=== PATIENT | female | born 1940 | race Caucasian/White ===

== ENCOUNTER → 2016-08-21 | Outpatient (CLI) | payer MEDICARE, BC ==
[2016-08-21 09:49] LABS: CH 27.5; CHCM 31.4; HCT 41.6 % (34.0-46.0); HDW 2.33; HGB 13.1 gm/dL (11.4-16.0); MCH 27.6 pg (25.0-35.0); MCHC 31.4 g/dL (31.0-37.0); MCV 87.8 fL (80.0-100.0); Mean Platelet Volume 6.4; RBC 4.74 m/uL (3.80-5.40); RDW 13.1 % (11.5-15.5); WBC 4.9 k/uL (3.8-10.6)
[2016-08-21 10:06] LABS: ALT 40 U/L (9-52); AST 27 U/L (14-36); Alkaline Phosphatase 95 U/L (38-126); Anion Gap 11 mmol/L; Blood Urea Nitrogen 14 mg/dL (7-17); Calcium 9.7 mg/dL (8.4-10.2); Carbon Dioxide 32 mmol/L (22-30); Chloride 100 mmol/L (98-107); Cholesterol 234 mg/dL (<200); Glucose 91 mg/dL (74-99); HDL Cholesterol 82 mg/dL (40-60); Non-African American GFR(MDRD) >60 (>60 ml/min/1.73 sqM); Potassium 4.5 mmol/L (3.5-5.1); Sodium 143 mmol/L (137-145); Total Bilirubin 0.6 mg/dL (0.2-1.3); Total Protein 7.1 g/dL (6.3-8.2); Triglycerides 100 mg/dL (<150)
== END | disposition home or self-care (01) ==
LOC: LABWHC1 09:19
PROVIDERS: ATTEND Internal Medicine
DX: I10 Essential (primary) hypertension (principal); E78.5 Hyperlipidemia, unspecified
CPT/HCPCS: 36415; 80053; 80061; 84443; 85027

== ENCOUNTER → 2016-11-20 | Outpatient (CLI) | payer MEDICARE, BC ==
[2016-11-20 09:18] LABS: CH 27.8; CHCM 32.7; HCT 40.5 % (34.0-46.0); HDW 2.46; HGB 13.3 gm/dL (11.4-16.0); MCH 27.9 pg (25.0-35.0); MCHC 32.8 g/dL (31.0-37.0); MCV 85.2 fL (80.0-100.0); Mean Platelet Volume 6.3; RBC 4.75 m/uL (3.80-5.40); RDW 13.1 % (11.5-15.5); WBC 4.6 k/uL (3.8-10.6)
[2016-11-20 10:56] LABS: ALT 25 U/L (9-52); AST 27 U/L (14-36); Alkaline Phosphatase 82 U/L (38-126); Anion Gap 11 mmol/L; Blood Urea Nitrogen 14 mg/dL (7-17); Calcium 9.7 mg/dL (8.4-10.2); Carbon Dioxide 31 mmol/L (22-30); Chloride 97 mmol/L (98-107); Cholesterol 239 mg/dL (<200); Glucose 87 mg/dL (74-99); HDL Cholesterol 78 mg/dL (40-60); Non-African American GFR(MDRD) >60 (>60 ml/min/1.73 sqM); Potassium 4.3 mmol/L (3.5-5.1); Sodium 139 mmol/L (137-145); Total Bilirubin 0.8 mg/dL (0.2-1.3); Total Protein 7.3 g/dL (6.3-8.2); Triglycerides 137 mg/dL (<150)
== END ==
LOC: LABWHC1 08:50
PROVIDERS: ATTEND Internal Medicine
DX: I10 Essential (primary) hypertension (principal); E78.5 Hyperlipidemia, unspecified; M19.90 Unspecified osteoarthritis, unspecified site
CPT/HCPCS: 36415; 80053; 80061; 84443; 85027

== ENCOUNTER → 2016-12-18 | Outpatient (CLI) | payer MEDICARE, BC ==
[2016-12-18 10:26] LABS: Basophils % (A) 0 %; CH 27.9; CHCM 32.4; Eosinophils % (A) 0 %; HCT 35.6 % (34.0-46.0); HDW 2.48; HGB 11.9 gm/dL (11.4-16.0); Luc # (Auto) 0.15; Luc % (Auto) 3; Lymphocytes # (A) 0.8 k/uL (1.0-4.8); Lymphocytes % (A) 17 %; MCH 28.8 pg (25.0-35.0); MCHC 33.3 g/dL (31.0-37.0); MCV 86.4 fL (80.0-100.0); Mean Platelet Volume 6.2; Monocytes # (A) 0.5 k/uL (0-1.0); Monocytes % (A) 10 %; Neutrophils # (A) 3.5 k/uL (1.3-7.7); Neutrophils % (A) 70 %; RBC 4.12 m/uL (3.80-5.40); RDW 13.1 % (11.5-15.5); WBC (Perox) 4.86
[2016-12-18 13:38] LABS: Erythrocyte Sedimentation Rate 23 mm/hr (0-20)
== END | disposition home or self-care (01) ==
LOC: LABWHC1 10:06
PROVIDERS: ATTEND Orthopaedic Surgery
DX: M25.50 Pain in unspecified joint (principal)
CPT/HCPCS: 36415; 85025; 85652; 86140

== ENCOUNTER → 2017-01-03 | Outpatient (CLI) | payer MEDICARE, BC ==
--- NOTE | 2017-01-03 11:46 | NM ---
EXAMINATION TYPE: NM bone 3 phase DATE OF EXAM: 01/03/2017 11:34 AM COMPARISON: NONE HISTORY: Left hip pain Triple phase bone scintigraphy was performed following the injection of26.2 mCi Tc 99m MDP. Immediat e images and 3.5 hours post injection images acquired. FINDINGS: There is symmetric flow to the femur bilaterally. No significant soft tissue uptake noted. Delayed imaging demonstrates photopenic defect involving the hip prostheses. There is no intense abno rmal uptake surrounding the prostheses. There is mild uptake along the shaft. This could be postsurgi chelo. IMPRESSION: Symmetric flow without significant soft tissue uptake. Delayed imaging does demonstrate very mild upt chi along the shaft of the prostheses which could be postsurgical rather than related to loosening. C orrelate clinically. If warranted a tagged WBC study could be obtained..
== END | disposition home or self-care (01) ==
LOC: RADNMMAIN 07:16
PROVIDERS: ATTEND Orthopaedic Surgery
DX: R94.8 Abnormal results of function studies of other organs and systems (principal); M25.552 Pain in left hip; M79.662 Pain in left lower leg; Z96.642 Presence of left artificial hip joint
CPT/HCPCS: 78315; A9503

== ENCOUNTER → 2017-01-23 | Outpatient (CLI) | payer MEDICARE, BC ==
--- NOTE | 2017-01-23 09:18 | CT ---
EXAMINATION TYPE: CT pelvis wo con DATE OF EXAM: 01/23/2017 COMPARISON: NONE HISTORY: Painful LTHA CT DLP: 536.50 mGycm Automated exposure control for dose reduction was used. FINDINGS: There is a left-sided prosthesis in the left hip. This is causing moderate streak artifact. The bladder is unremarkable. The uterus and ovaries are not visualized. Visualized large and small bowel are normal. The appendix is not visualized. There is no free air or free fluid identified. The patient left hip prosthesis is unremarkable. One of the posterior screws of the acetabular compon ent extends into the soft tissues. I see no definite evidence of loosening. IMPRESSION: POSTERIOR SCREW IN THE ACETABULAR COMPONENT OF THE PATIENT'S LEFT HIP ARTHROPLASTY PROTRUDES INTO THE SOFT TISSUES AND GLUTEUS MINIMUS MUSCLE.
== END | disposition home or self-care (01) ==
LOC: RADCTMAIN 08:31
PROVIDERS: ATTEND Orthopaedic Surgery
DX: T84.091A Other mechanical complication of internal left hip prosthesis, initial encounter (principal)
CPT/HCPCS: 72192

== ENCOUNTER → 2017-02-20 | Outpatient (CLI) | payer MEDICARE, BC ==
[2017-02-20 10:32] LABS: CH 27.9; CHCM 32.7; HCT 38.8 % (34.0-46.0); HDW 2.32; HGB 13.4 gm/dL (11.4-16.0); MCH 29.5 pg (25.0-35.0); MCHC 34.5 g/dL (31.0-37.0); MCV 85.5 fL (80.0-100.0); Mean Platelet Volume 6.4; RBC 4.54 m/uL (3.80-5.40); RDW 13.5 % (11.5-15.5); WBC 5.1 k/uL (3.8-10.6)
[2017-02-20 11:01] LABS: ALT 26 U/L (9-52); AST 30 U/L (14-36); Alkaline Phosphatase 92 U/L (38-126); Anion Gap 9 mmol/L; Blood Urea Nitrogen 15 mg/dL (7-17); Calcium 9.5 mg/dL (8.4-10.2); Carbon Dioxide 30 mmol/L (22-30); Chloride 98 mmol/L (98-107); Cholesterol 217 mg/dL (<200); Glucose 86 mg/dL (74-99); HDL Cholesterol 77 mg/dL (40-60); Non-African American GFR(MDRD) >60 (>60 ml/min/1.73 sqM); Potassium 4.5 mmol/L (3.5-5.1); Sodium 137 mmol/L (137-145); Total Bilirubin 0.7 mg/dL (0.2-1.3); Total Protein 7.1 g/dL (6.3-8.2); Triglycerides 93 mg/dL (<150)
== END | disposition home or self-care (01) ==
LOC: LABWHC1 09:51
PROVIDERS: ATTEND Internal Medicine
DX: E55.9 Vitamin D deficiency, unspecified (principal); I10 Essential (primary) hypertension
CPT/HCPCS: 36415; 80053; 80061; 82306; 84443; 85027

== ENCOUNTER → 2017-03-21 | Outpatient (CLI) | payer MEDICARE, BC ==
--- NOTE | 2017-03-21 16:51 | MR ---
EXAMINATION TYPE: MR lumbar spine wo con DATE OF EXAM: 03/21/2017 COMPARISON: Prior lumbar MRI 06/28/2015 HISTORY: Low Back Pain with Difficulty Walking x5 years, getting worse TECHNIQUE: Multiplanar, multisequence images of the lumbar spine were acquired. L1-L2: Facet arthropathy with hypertrophy ligamentum flavum causes some encroachment on the lateral r ecesses. No significant central stenosis or foraminal encroachment. L2-L3: L2-3: Facet arthropathy with hypertrophy of the ligamentum flavum encroaches on the lateral re cesses. The listhesis contributes to cause some anterior mass effect on the thecal sac, only mild sancho tral stenosis. L3-L4: Facet arthropathy contributes with scoliosis to cause posterior lateral mass effect on the the chelo sac greater from the left. Scoliosis also contributes to cause foraminal encroachment greater on the left than on the right with the listhesis. No significant disc herniation. L4-L5: Circumferential posterior disc bulge causes mild anterior mass effect on the thecal sac. There is facet arthropathy with hypertrophy of the ligamentum flavum encroaching on the lateral recesses. No significant spinal stenosis or foraminal encroachment. L5-S1: Broad-based posterior disc bulge causes mild anterior mass effect on the thecal sac. There is some facet arthropathy change, no significant central stenosis. Circumferential extension of endplate disc complex results in foraminal encroachment greater on the right than on the left. Lumbar segments are intact. No paraspinal masses are identified. Conus medullaris is low lying at L 3-4. There is a marked dextroscoliosis. Multilevel spondylosis is present. Retrolisthesis grade 1 L2- 3, anterolisthesis grade 1 L3-4 noted. Loss of disc height and signal is present at the intervertebra l levels especially at L2-3, L3-4, L1-2. Endplate discogenic marrow signal changes are present, there is multilevel spondylosis. On axial image 18 of the T2 weighted data set there is a similar appearance to prior exam where some increased signal apparently coursing anterior to posterior through the region of the conus compatible with split cord. IMPRESSION: Essentially stable exam. Scoliosis, degenerative disc disease, multilevel facet arthropathy.
== END | disposition home or self-care (01) ==
LOC: RADMRIMAIN 15:13
PROVIDERS: ATTEND Internal Medicine
DX: M51.36 Other intervertebral disc degeneration, lumbar region (principal); M46.86 Other specified inflammatory spondylopathies, lumbar region; M41.9 Scoliosis, unspecified
CPT/HCPCS: 72148

== ENCOUNTER → 2017-06-04 | Outpatient (CLI) | payer MEDICARE, BC ==
[2017-06-04 10:53] LABS: CH 28.3; CHCM 31.2; HCT 41.7 % (34.0-46.0); HDW 2.23; MCH 28.2 pg (25.0-35.0); Mean Platelet Volume 6.2; RBC 4.59 m/uL (3.80-5.40); RDW 13.4 % (11.5-15.5); WBC 5.1 k/uL (3.8-10.6)
[2017-06-04 11:03] LABS: ALT 55 U/L (9-52); AST 34 U/L (14-36); Alkaline Phosphatase 88 U/L (38-126); Anion Gap 7 mmol/L; Blood Urea Nitrogen 16 mg/dL (7-17); Calcium 9.6 mg/dL (8.4-10.2); Carbon Dioxide 30 mmol/L (22-30); Chloride 101 mmol/L (98-107); Cholesterol 231 mg/dL (<200); Glucose 89 mg/dL (74-99); HDL Cholesterol 79 mg/dL (40-60); Non-African American GFR(MDRD) >60 (>60 ml/min/1.73 sqM); Potassium 4.5 mmol/L (3.5-5.1); Sodium 138 mmol/L (137-145); Total Bilirubin 0.6 mg/dL (0.2-1.3); Total Protein 6.9 g/dL (6.3-8.2)
== END | disposition home or self-care (01) ==
LOC: LABWHC1 10:08
PROVIDERS: ATTEND Internal Medicine
DX: I10 Essential (primary) hypertension (principal); E78.5 Hyperlipidemia, unspecified; R53.83 Other fatigue; K21.0 Gastro-esophageal reflux disease with esophagitis
CPT/HCPCS: 36415; 80053; 80061; 84443; 85027

== ENCOUNTER → 2017-06-05 | Outpatient (CLI) | payer MEDICARE, BC ==
[2017-06-03 14:34] VITALS: BMI 29.2
[2017-06-05 11:59] VITALS: BP 193/91; PULSE 76; RESP 16
--- NOTE | 2017-06-05 12:46 | P.CONS ---
History of Present Illness - Reason for Consult Consult date: 06/05/17 - History of Present Illness This is 76 years old female, with more than 5 years history of severe low back pain, pain intensity increased over the last 2 years, it is constant pain localized in the low back area used to be mainly on the left side,but currently bilateral, pain increased with any change position or standing in the same position for long time, she has no fever or night sweats. No change in bowel movement or urination, she tried physical therapy without any benefit, and she tried also on medication management without any benefit, intensity of the pain interfere with her quality of life and she described the pain as 6/10 increased to 8/10, she is currently on naproxen for 50 twice a day and [place] 7.5 /325 one to 2 tab when necessary (is getting prescription refills from her primary care, also patient complaining of severe neck pain which is localized in the neck are not radiated to the upper extremity, no numbness or tingling sensation in the upper extremity, and no weakness in the upper extremities Past Medical History Past Medical History: GERD/Reflux, Hyperlipidemia, Hypertension, Osteoarthritis (OA), Vascular Disorder Additional Past Medical History / Comment(s): RECENT UTI TREATED History of Any Multi-Drug Resistant Organisms: None Reported Past Surgical History: Adenoidectomy, Appendectomy, Breast Surgery, Cholecystectomy, Hysterectomy, Joint Replacement, Tonsillectomy Additional Past Surgical History / Comment(s): ANUPAM CARPAL TUNNEL, BREAST AUGMENTATION AND THEN REMOVAL of implants, ANUPAM LARGE TOE surgery, left hip replacement, anupam cataracts, vitrectomy left eye. Eyelid surgery-bilateral 2015. Past Anesthesia/Blood Transfusion Reactions: Postoperative Nausea & Vomiting ( PONV) Additional Past Anesthesia/Blood Transfusion Reaction / Comm: SEVERE PONV, TONGUE SWELLED POST OP x1 Past Psychological History: No Psychological Hx Reported Smoking Status: Never smoker Past Alcohol Use History: None Reported Past Drug Use History: None Reported - Past Family History Mother Family Medical History: No Reported History Father Additional Family Medical History / Comment(s): CIRRHOIS OF THE LIVER Medications and Allergies Home Medications Medication Instructions Recorded Confirmed Type Hydrochlorothiazide 25 mg PO DAILY 08/27/14 06/05/17 History Loratadine [Alavert] 10 mg PO DAILY 08/27/14 06/05/17 History Omeprazole [PriLOSEC] 20 mg PO AC-SUPPER 08/27/14 06/05/17 History HYDROcodone/APAP 7.5-325MG [[place] 1 - 2 each PO Q6HR PRN #90 tab 09/09/14 Rx 7.5-325] Naproxen Sodium [Aleve] 440 mg PO Q12HR 06/03/17 06/05/17 History Vit C/E/Zn/Coppr/Lutein/Zeaxan 1 each PO BID 06/03/17 06/05/17 History [Preservision Areds 2 Softgel] Allergies Allergy/AdvReac Type Severity Reaction Status Date / Time adhesive Allergy Rash/Hives Verified 06/05/17 11:33 METAL Allergy Rash/Hives Uncoded 06/05/17 11:33 Physical Exam Vitals: Vital Signs Pulse Resp BP Pulse Ox 06/05/17 11:35 76 16 193/91 99 Social history : smoker , NO ETOH , NO Illegal drugs use Review of Systems : 1- Constitutional : no chills , no fever , no night sweats , 2- Ears : no ear discharge , no change in hearing 3-Nose, Mouth ,Throat ; no bleeding gums, no sore throat , no epistaxis , 4-Cardiovascular : Denies chest pain, , no orthopnea , no palpitation 5-Respiratory : Denies cough , no dyspnea , no hemoptysis 6-Gastrointestinal :, no change in bowel habits , no coffee- ground emesis . 7-Genitourinary : No hematuria , no discharge , no incontinence, 8-Musculoskeletal : No gait dysfunction , report low back pain , 9- Neurological : no ataxia , no tremor , no sezure , 10-Psychatric , no suicidal ideation no hallucination 11- Endocrine : no cold intolerence , no polyuria , no polydypsia , 12-Hematologic : no easy bleeding , no easy brusing , 13-Allergic / immunology : no angioedema , no wheezing ,no allergic rhinitis 14-Integumentary : no brttle nails , no change hair / nails , no foot/leg ulcers . Physical Examinations : 1-Constitutional : Cooperative , not in acute distress . 2-HEENT : nech ; supple , no Lymphadenopathy , no Thyromegaly , :eyes , no icterus, no photophobia . ENT : , normal oropharynx , no Thrush 3- Respiratory : Chest clear to auscultations Bilaterally , no wheezing . 4- Cardiovascular : regular rate and rhythem , S1 , S2 , no S3 , no S4. 5- Gastrointestinal: abdomen soft no tenderness , no organomegally . 6- Genitourinary : Defferred . 7-Integumentary : No cellulitis , no ulcers , normal skin turgor , no cyanotic . 8- neurologic : Cranial nerve II to XII intact , no focal neurological deffecit 9-psychatric : alert , oriented X 3 , appropriate affect , intact judgment and insight . 10-Lymphatic : no Lymphadenopathy. 11- musculoskeltal: normal gait Cervical Spine motor stregnth in the deltoid and biceps, normal right side , normal Left side motor stregnth biceps and the wrist extensors normal right side ,normal left side . motor stregnth in the triceps muscle . normal Right side , normal Left side deep tendon reflexes normal at the biceps , normal at Brachioradialis , normal at triceps. positive cervical facet loading test . Lumber spine moter stegnth lower extremities ,thigh and legs 5/5 Right side , 5/5 Left side deep tendon reflexes : normal Knee Jerk , normal ankle Jerk positive lumber facet Loading Test Range of motion of the lumbar spine Flexion 30 degrees, extension 10 degrees strait leg raising test , positive at 60 degree on the left side , negative on the right side Fabere test negative bilaterally moderate tenderness over the Sacroiliac joint on the L sides Results Comments: MRI of the lumbar spine= done at [facility] = multilevel lumbar degenerative/bulging disc disease and multilevel lumbar facet arthropathy Assessment and Plan Plan: Assessment and plan= chronic low back pain secondary to lumbar degenerative disc disease , lumbar spondylosis with lumbar facet arthropathy , Chronic neck pain secondary to cervical spondylosis with cervical facet arthropathy Diagnoses, prognosis, treatment options, including but not limited to physical therapy, medication management, interventional therapies, and surgery, were discussed with the patient All the questions answered, patient will be scheduled to have diagnostic medial branch block lumbar area L3-4/L4-L5/L5-S1 redo the block twice and if she had more than 50% improvement then we will proceed with a radiofrequency ablation of the medial branch lumbar area, In the future after we finished the treatment of the low back pain we will order MRI of the cervical spine to confirm the diagnosis Patient instructed to continue her current pain medication naproxen for 50 twice a day when necessary [place] 7.5/325 every 6 hours and she is getting her prescription refilled from her primary care , Time with Patient: Greater than 30
== END ==
LOC: PNWHC3 11:18
PROVIDERS: ATTEND Specialist
DX: M51.36 Other intervertebral disc degeneration, lumbar region (principal); M47.816 Spondylosis without myelopathy or radiculopathy, lumbar region; M46.86 Other specified inflammatory spondylopathies, lumbar region; M47.812 Spondylosis without myelopathy or radiculopathy, cervical region; M46.82 Other specified inflammatory spondylopathies, cervical region; K21.9 Gastro-esophageal reflux disease without esophagitis; E78.5 Hyperlipidemia, unspecified; I10 Essential (primary) hypertension; Z79.891 Long term (current) use of opiate analgesic; Z79.899 Other long term (current) drug therapy; Z91.09 Other allergy status, other than to drugs and biological substances
CPT/HCPCS: 99211

== ENCOUNTER 2017-07-16 07:13 | Day surgery (SDC) | payer MEDICARE, BC ==
[2017-07-15 08:39] VITALS: BMI 29.9
[2017-07-16 07:59] VITALS: RESP 16; TEMP 97.1
[2017-07-16] MEDS ORDERED: LIDOCAINE 1% 20 ML VIAL (10MG/ML) FOR IV START INTRADERMA ONE (08:05)
[2017-07-16] MEDS ORDERED: LACTATED RINGERS 1,000 ML IV SCH (08:15)
[2017-07-16] MEDS ORDERED: ONDANSETRON 4 MG/2 ML VIAL IVP STA (08:26)
[2017-07-16] MEDS ORDERED: IV FLUID CONTINUATION 1,000 ML IV ONE (08:46)
--- NOTE | 2017-07-16 08:52 | P.PCN ---
Date of Procedure: 07/16/17 Surgeon: Jourdan Olmos Pathology: none sent Condition: stable Disposition: PACU Description of Procedure: PREOPERATIVE DIAGNOSIS: L3-L4, L4-L5, and L5-S1 spondylosis without myelopathy and facet arthropathy. POSTOPERATIVE DIAGNOSIS: L3-L4, L4-L5, and L5-S1 spondylosis without myelopathy and facet arthropathy. PROCEDURE DESCRIPTION: Patient presents for L3-L4, L4-L5 and L5-S1 diagnostic medial branch blocks under fluoroscopic guidance. The procedure is performed using fluoroscopic guidance during needle placement to assure proper position and maximize safety. ANESTHESIA: Local with 1% lidocaine; conscious sedation EBL: Minimal PROCEDURE INDICATION: Patient with lumbar facet arthropathy signs and symptoms, here for diagnostic medial branch block #2 today after failing conservative treatment. One day's relief > 80% from first MBB. Pt does not take any blood thinning medications. PROCEDURE DESCRIPTION: The patient was seen and identified in the preoperative area. Risks, benefits, complications, and alternatives were discussed with the patient (including but not limited to incomplete pain relief, bleeding, infection, nerve damage, and allergies to medications), the patient agreed to proceed with the procedure and signed the consent after all questions were answered. Patient was taken to the OR and time out was completed to verify proper patient, position, laterality of pain, and allergies. Pt was placed in the prone position and a pillow was placed under the abdomen to reduce lumbar lordosis. The lumbosacral area was prepped and draped in the usual sterile fashion. Using oblique fluoroscopy, the eye of the "Doni dog" of right L4 vertebral body, which corresponds to the path of the medial branch originating from the level above, which is L3 in this case, was identified. Subsequently, a 22-gauge 3.5-inch spinal needle was inserted under fluoroscopic guidance toward the eye of the "Doni dog" of the right L4 vertebral body, corresponding to the junction of the superior articular process and the transverse process of the pedicle of the same level. After needle tip confirmation on lateral view and after negative aspiration for CSF and blood and without paresthesias, 1 mL of a 6 ml solution of 0.5% preservative-free bupivacaine and 40 mg Kenalog was injected. Subsequently the needle was withdrawn intact and the same procedure was repeated for the right L4, right L5, left L3, left L4, and left L5 medial branches which together with right L3 medial branch correspond to the sensory innervation of the bilateral L3-L4, L4-L5, and L5-S1 facet joints. Needle was withdrawn intact after each injection. At the end of the procedure, the skin was cleansed and bandages were applied. COMPLICATIONS: None. DISPOSITION/PLAN: The patient taken to the recovery area after the procedure in a stable condition for observation. Patient was reexamined prior to discharge and there were no issues. Patient was discharged home, accompanied by an adult, after meeting discharged criteria. Discharge instructions were give to the patient by the staff. Patient was specifically instructed not to drive today and to rest for the rest of the day. Patient to follow up in clinic in 2-4 weeks for further evaluation.
[2017-07-16 09:05] VITALS: BP 149/69; PULSE 67
--- NOTE | 2017-07-16 09:07 | FL ---
EXAMINATION TYPE: FL guided pain mgmt statistic DATE OF EXAM: 07/16/2017 HISTORY: Flouroscopy time 11 seconds of fluoroscopy provided. IMPRESSION: 1. Fluoroscopy time.
== END 2017-07-16 09:18 | disposition home or self-care (01) ==
LOC: ORPAIN 07:13
PROVIDERS: ATTEND Specialist
DX: M47.816 Spondylosis without myelopathy or radiculopathy, lumbar region (principal); M47.817 Spondylosis without myelopathy or radiculopathy, lumbosacral region; I10 Essential (primary) hypertension; K21.9 Gastro-esophageal reflux disease without esophagitis; Z88.8 Allergy status to other drugs, medicaments and biological substances; Z79.1 Long term (current) use of non-steroidal anti-inflammatories (NSAID); Z79.891 Long term (current) use of opiate analgesic; Z79.899 Other long term (current) drug therapy
CPT/HCPCS: 64493; 64494; 64495; J2250; J3301; 99152

== ENCOUNTER 2017-09-03 08:17 | Day surgery (SDC) | payer MEDICARE, BC ==
[2017-08-27 15:19] VITALS: BMI 30.4
[2017-09-03] MEDS ORDERED: LIDOCAINE 1% 20 ML VIAL (10MG/ML) FOR IV START INTRADERMA ONE (08:23)
[2017-09-03 08:34] VITALS: TEMP 94.8
[2017-09-03] MEDS ORDERED: LACTATED RINGERS 1,000 ML IV ONE (08:38)
[2017-09-03] MEDS ORDERED: LACTATED RINGERS 1,000 ML IV SCH (09:45)
[2017-09-03] MEDS ORDERED: fentaNYL (PF) 50 MCG/ML 2 ML AMP ONE (09:45)
[2017-09-03] MEDS ORDERED: MIDAZOLAM 2 MG/2 ML VIAL ONE (09:45)
--- NOTE | 2017-09-03 10:00 | P.PCN ---
Date of Procedure: 09/03/17 Surgeon: Jourdan Olmos Pathology: none sent Condition: stable Disposition: PACU Description of Procedure: PREOPERATIVE DIAGNOSIS: Lumbar spondylosis without myelopathy and facet arthropathy POSTOPERATIVE DIAGNOSIS: Lumbar spondylosis without myelopathy and facet arthropathy PROCEDURES: Left Radiofrequency thermocoagulation, L3-L4, L4-L5, and L5-S1 medial branch, with fluoroscopic guidance. ANESTHESIA: 1% lidocaine plain; Conscious sedation with versed/fentanyl EBL: Minimal PROCEDURE INDICATION: The patient with low back pain secondary to lumbar arthropathy who had more than 50% relief of pain with previous diagnostic lumbar medial branch block with bupivacaine. Patient presents for left lumbar RFA today; no use of blood thinners. PROCEDURE DESCRIPTION / TECHNIQUE: The patient was seen and identified in the preoperative area. Risks, benefits, complications, and alternatives were discussed with the patient (including but not limited to incomplete pain relief , bleeding, infection, nerve damage, and allergies to medications), the patient agreed to proceed with the procedure and signed the consent after all questions were answered. Patient was taken to the OR and time out was completed to verify proper patient , position, laterality of pain, and allergies. Pt was placed in the prone position. IV was started. Vital signs remained stable throughout the procedure. A pillow was placed under the patients chest to decrease lordosis. The lumbosacral area was prepped and draped in the usual sterile fashion. Vital signs were closely monitored during the procedure. Conscious sedation was used during the procedure to decrease patients anxiety. Using AP and then oblique fluoroscopy, the eye of the Doni dog corresponding to the connection between the superior and transverse articular processes of left L3, L4, L5 and top of the sacrum were identified, marked, and localized with 1% lidocaine. Subsequently, a 20 gauge, 100-mm radiofrequency cannula with a 10-mm active tip was advanced guided by fluoroscopy to each of the eyes of the Doni dog at the levels of all four medial branches. Each site then underwent sensory testing at 50 Hz and 0 to 1 volt and motor testing at 2 Hz and 0 to 3 volt with local stimulation, but no radicular symptoms down the legs. Thereafter all four medial branch sites underwent radiofrequency thermocoagulation at 80 degrees Celsius for 90 seconds after injecting 0.5 ml of PF lidocaine 1%. After thermocoagulation, 1 ml of the block solution containing Kenalog 40 mg and 2 mL of preservative-free normal saline was injected at all four medial branch levels after negative aspiration of CSF and blood and with no paresthesias. Cannulas were retracted while injecting lidocaine 1% until the needles were removed. At the end of the procedure, the skin was cleansed and bandages were applied. COMPLICATIONS: No acute complications. DISPOSITION / PLANS: The patient was placed in a supine position and transferred to the recovery area in a stable condition for observation and was discharged from the recovery room after meeting discharge criteria. Home discharge instructions given to the patient by the staff. The patient was reexamined prior to discharge. The patient will schedule a right lumbar RFA in 4 -6 weeks.
[2017-09-03 10:35] VITALS: BP 152/77; PULSE 70; RESP 20
[2017-09-03] MEDS ORDERED: IV FLUID CONTINUATION 1,000 ML IV ONE (10:36)
--- NOTE | 2017-09-03 11:20 | FL ---
Fluoroscopy HISTORY: Pain 18 seconds fluoroscopy time supplied to the referring clinician. 2 intraoperative C-arm images docum ent the procedure. See dictated report from anesthesia.
== END 2017-09-03 10:42 | disposition home or self-care (01) ==
LOC: ORPAIN 08:17
PROVIDERS: ATTEND Anesthesiology
DX: M47.816 Spondylosis without myelopathy or radiculopathy, lumbar region (principal); I10 Essential (primary) hypertension; F41.9 Anxiety disorder, unspecified; K21.9 Gastro-esophageal reflux disease without esophagitis; Z91.09 Other allergy status, other than to drugs and biological substances; Z88.0 Allergy status to penicillin
CPT/HCPCS: 64635; 64636 ×2; J3301; 99152

== ENCOUNTER → 2017-09-07 | Outpatient (CLI) | payer MEDICARE, BC ==
[2017-09-07 10:37] LABS: HCT 44.1 % (34.0-46.0); MCH 28.8 pg (25.0-35.0); MCHC 31.6 g/dL (31.0-37.0); MCV 90.9 fL (80.0-100.0); Mean Platelet Volume 6.7; Platelet Count 369 k/uL (150-450); RBC 4.85 m/uL (3.80-5.40); RDW 14.3 % (11.5-15.5); WBC 7.1 k/uL (3.8-10.6)
[2017-09-07 10:56] LABS: ALT 38 U/L (9-52); AST 23 U/L (14-36); Albumin 4.3 g/dL (3.5-5.0); Alkaline Phosphatase 78 U/L (38-126); Anion Gap 9 mmol/L; Blood Urea Nitrogen 18 mg/dL (7-17); Carbon Dioxide 33 mmol/L (22-30); Chloride 96 mmol/L (98-107); Cholesterol 283 mg/dL (<200); Glucose 96 mg/dL (74-99); HDL Cholesterol 83 mg/dL (40-60); LDL Cholesterol,Calculated 159 mg/dL (0-99); Potassium 4.4 mmol/L (3.5-5.1); Sodium 138 mmol/L (137-145); Total Bilirubin 0.6 mg/dL (0.2-1.3); Total Protein 7.4 g/dL (6.3-8.2); Triglycerides 205 mg/dL (<150)
== END | disposition home or self-care (01) ==
LOC: LABWHC1 10:13
PROVIDERS: ATTEND Internal Medicine
DX: E78.5 Hyperlipidemia, unspecified (principal); M51.36 Other intervertebral disc degeneration, lumbar region; R74.8 Abnormal levels of other serum enzymes
CPT/HCPCS: 36415; 80053; 80061; 84443; 85027

== ENCOUNTER 2017-10-02 08:26 | Day surgery (SDC) | payer MEDICARE, BC ==
[2017-09-27 13:17] VITALS: BMI 30.7
[~2017-10-02 08:26] MED LIST: LACTATED RINGERS 1,000 ML IV SCH
[2017-10-02 09:55] VITALS: RESP 16; TEMP 97.8
[2017-10-02] MEDS ORDERED: LIDOCAINE 1% 20 ML VIAL (10MG/ML) FOR IV START INTRADERMA ONE (10:07)
--- NOTE | 2017-10-02 10:41 | P.PCN ---
Date of Procedure: 10/02/17 Procedure(s) Performed: PREOPERATIVE DIAGNOSIS: 1-Lumbar Spondylosis with Facet Arthropathy without myelopathy. 2- Lumber degenerative disc disease. POSTOPERATIVE DIAGNOSIS: 1- Lumbar Spondylosis with Facet Arthropathy without myelopathy. 2- Lumber degenerative disc disease. PROCEDURES : Right Radiofrequency thermocoagulation, L3-L4, L4-L5, and L5-S1 medial branch, with fluoroscopic guidance ANESTHESIA: Moderate sedation with intravenous versed 2 mg and fentaneyl 100 mcg and local infiltration with lidocaine 1% 6 ml EBL: Minimal PROCEDURE INDICATION: The patient with low back pain secondary to lumbar facet arthropathy who had more than 50% relief of her pain with previous diagnostic lumbar medial branch block with bupivacaine. PROCEDURE DESCRIPTION / TECHNIQUE: The patient was seen and identified in the preoperative area. Risks, benefits, complications, including but not limited to risk of infection ,bleeding , allergic reactions to the medications and no complete pain releife , and alternatives were discussed with the patient, the patient agreed to proceed with the procedure and signed the consent. IV was started. Vital signs remained stable throughout the procedure. Patient was taken to the OR and time out was completed. The patient was placed in the prone position on the procedure table. The lumber area was prepped and draped in the usual sterile fashion. . Vital signs were closely monitored during the procedure .IV sedation was used during the procedure to decrease patients anxiety. Using AP and then oblique fluoroscopy, the ``eye of the Doni dog corresponding to the connection between the superior and transverse articular processes of right L3, L4, and L5 were identified, marked, and localized with 1 % lidocaine. Subsequently, a 18 -up radiofrequency cannula with a 10- mm active tip was advanced guided by fluoroscopy to each of the ``eyes of the Doni dog at right L3, L4, and L5. Each site then underwent sensory testing at 50 Hz and 0 to 1 volt and motor testing at 2.5 Hz and 0 to 3 volt with local stimulation, but no radicular symptoms down the legs. Thereafter the right L3-4, L4-5, and L5-S1 sites underwent radiofrequency thermocoagulation at 80 degrees celsius for 90 seconds after injecting 0.5 ml of PF lidocaine 1%. then After the thermocoagulation done , 1 ml of the block solution containing Kenalog 40 mg and 3 ml of marain 0.5% was injected at the right L3- 4 , L4-5 , and L5-S1, levels after negative aspiration of CSF and blood and with no paresthesias. Cannulas were retracted while injecting lidocaine 1% until the needle is out. At the end of the procedure, the skin was cleansed and bandages were applied. COMPLICATIONS: No acute complications. DISPOSITION / PLANS: The patient was placed in a supine position and transferred to the recovery area in a stable condition for observation and was discharged from the recovery room after meeting discharge criteria. Home discharge instructions given to the patient by the staff. The patient was reexamined prior to discharge. The patient will schedule a follow up in the clinic in 2-4 weeks.
[2017-10-02] MEDS ORDERED: IV FLUID CONTINUATION 1,000 ML IV ONE (10:46)
[2017-10-02 11:08] VITALS: BP 133/87; PULSE 76
--- NOTE | 2017-10-02 14:49 | FL ---
Fluoroscopy HISTORY: Pain 17 seconds fluoroscopy time supplied to the referring clinician. 3 intraoperative C-arm images docum ent the procedure. See dictated report from anesthesia.
== END 2017-10-02 11:32 | disposition home or self-care (01) ==
LOC: ORPAIN 08:26
PROVIDERS: ATTEND Anesthesiology
DX: M47.816 Spondylosis without myelopathy or radiculopathy, lumbar region (principal); M51.36 Other intervertebral disc degeneration, lumbar region; I10 Essential (primary) hypertension; K21.9 Gastro-esophageal reflux disease without esophagitis; Z91.09 Other allergy status, other than to drugs and biological substances
CPT/HCPCS: 64635; 64636 ×2; J2250; J3301; J3010; 99152

== ENCOUNTER → 2017-10-29 | Outpatient (CLI) | payer MEDICARE, BC ==
[2017-10-29 13:18] VITALS: BP 167/89; PULSE 76; RESP 16
--- NOTE | 2017-10-29 13:45 | P.PN ---
Progress Note - Text Progress Note Date: 10/29/17 This is a 77-year-old female with history of lower back pain due to lumbar spondylosis without myelopathy and spina bifida. The patient had RFA on the lumbar medial branches and she has excellent results she even stopped using her [place]. In addition to above, 13-point review of systems is also negative for chest pain , shortness of breath, changes in vision, changes in hearing, new onset weakness , abdominal pain, diarrhea, extreme fatigue, malaise, fever, skin changes, homicidal or suicidal ideation, or bowel or bladder incontinence. Vital Signs: Reviewed in EMR Gen: WDWN, AAOx3, NAD HEENT: NCAT, EOMI, hearing grossly normal Pulm: resp unlabored Neck: supple, trachea midline ROM in flexion lumbar spine: reduced ROM in extension lumbar spine: reduced Lumbar paravertebral tenderness: + Facet loading: + bilateral, L > R Neuro: CN II-XII grossly intact, muscle strength lower extremities PRESERVED Imaging: Reviewed in EMR Assessment: 1. lumbar spondylosis 2. SIJ dysfunction 3. chronic pain syndrome Plan: 1. Explanation: Opioid and psychological risk scores were reviewed. Diagnoses , prognoses, and multiple treatment options including but not limited to physical therapy, interventional therapies, adjuvant medical therapies, narcotic medication therapies, and surgery were discussed with the patient and all questions were answered to the patient's satisfaction. 2. Opioid agreement: no opioids prescribed today 3. Counseling: The patient was counseled extensively on SMOKING CESSATION, BODY MASS INDEX, EXERCISE. Specifically, the patient was instructed regarding the importance of smoking cessation, weight control, and exercise in the context of both chronic pain and overall health. 4. Procedures: none 5. Consultations: None 6. Investigations: None 7. Medications: none prescribed 8. Disposition: f/u as needed PQRS measures: 1-Patient's medications are documented in the chart. 2-Tobacco use is negative 3-Patient has not had a pneumococcal vaccine. 4-Advanced care planning discussed, patient unable to give. 5-Opioid contract NOT signed with the patient. 6-Pain positive, follow-up visit or procedure scheduled 7-Patient's blood pressure measured and documented, and patient will follow up with the primary care due to hypertension. 8-Patient's weight was measured, and body mass index ABOVE the normal limits, and counseling was done. Patient instructed to follow up with PCP. 9-Patient WAS NOT identified as an unhealthy alcohol user.
== END | disposition home or self-care (01) ==
LOC: PNWHC3 12:52
PROVIDERS: ATTEND Anesthesiology
DX: G89.4 Chronic pain syndrome (principal); M47.816 Spondylosis without myelopathy or radiculopathy, lumbar region; M53.3 Sacrococcygeal disorders, not elsewhere classified; Z98.890 Other specified postprocedural states
CPT/HCPCS: 99211

== ENCOUNTER → 2017-12-17 | Outpatient (CLI) | payer MEDICARE, BC ==
[2017-12-17 10:10] LABS: HCT 41.5 % (34.0-46.0); HGB 13.7 gm/dL (11.4-16.0); MCH 29.2 pg (25.0-35.0); MCV 88.3 fL (80.0-100.0); Mean Platelet Volume 6.4; Platelet Count 311 k/uL (150-450); RDW 12.4 % (11.5-15.5); WBC 4.8 k/uL (3.8-10.6)
[2017-12-17 10:27] LABS: ALT 34 U/L (9-52); AST 34 U/L (14-36); Albumin 4.2 g/dL (3.5-5.0); Alkaline Phosphatase 86 U/L (38-126); Anion Gap 10 mmol/L; Blood Urea Nitrogen 15 mg/dL (7-17); Calcium 9.8 mg/dL (8.4-10.2); Carbon Dioxide 31 mmol/L (22-30); Chloride 98 mmol/L (98-107); Cholesterol 228 mg/dL (<200); Glucose 87 mg/dL (74-99); HDL Cholesterol 72 mg/dL (40-60); LDL Cholesterol,Calculated 138 mg/dL (0-99); Potassium 4.3 mmol/L (3.5-5.1); Sodium 139 mmol/L (137-145); Total Bilirubin 0.8 mg/dL (0.2-1.3); Total Protein 6.8 g/dL (6.3-8.2); Triglycerides 91 mg/dL (<150)
== END | disposition home or self-care (01) ==
LOC: LABWHC1 09:32
PROVIDERS: ATTEND Internal Medicine
DX: I10 Essential (primary) hypertension (principal); E78.5 Hyperlipidemia, unspecified; K21.9 Gastro-esophageal reflux disease without esophagitis
CPT/HCPCS: 36415; 80053; 80061; 84443; 85027

== ENCOUNTER → 2018-04-01 | Outpatient (CLI) | payer MEDICARE, BC ==
[2018-04-01 10:09] LABS: HCT 40.5 % (34.0-46.0); HGB 13.2 gm/dL (11.4-16.0); MCH 28.8 pg (25.0-35.0); MCHC 32.7 g/dL (31.0-37.0); MCV 88.3 fL (80.0-100.0); Mean Platelet Volume 6.3; Platelet Count 313 k/uL (150-450); RBC 4.59 m/uL (3.80-5.40); RDW 13.2 % (11.5-15.5); WBC 4.8 k/uL (3.8-10.6)
[2018-04-01 10:28] LABS: ALT 31 U/L (9-52); AST 26 U/L (14-36); Albumin 3.9 g/dL (3.5-5.0); Alkaline Phosphatase 68 U/L (38-126); Anion Gap 6 mmol/L; Blood Urea Nitrogen 14 mg/dL (7-17); Calcium 9.2 mg/dL (8.4-10.2); Carbon Dioxide 30 mmol/L (22-30); Chloride 101 mmol/L (98-107); Cholesterol 229 mg/dL (<200); Glucose 86 mg/dL (74-99); HDL Cholesterol 73 mg/dL (40-60); LDL Cholesterol,Calculated 132 mg/dL (0-99); Potassium 4.3 mmol/L (3.5-5.1); Sodium 137 mmol/L (137-145); Total Bilirubin 0.6 mg/dL (0.2-1.3); Total Protein 6.5 g/dL (6.3-8.2); Triglycerides 119 mg/dL (<150)
== END | disposition home or self-care (01) ==
LOC: LABWHC1 09:41
PROVIDERS: ATTEND Internal Medicine
DX: I10 Essential (primary) hypertension (principal); E55.9 Vitamin D deficiency, unspecified; E78.5 Hyperlipidemia, unspecified
CPT/HCPCS: 36415; 80053; 80061; 82306; 84443; 85027

== ENCOUNTER → 2018-08-05 | Outpatient (CLI) | payer MEDICARE, BC ==
[2018-08-05 11:24] LABS: HCT 41.3 % (34.0-46.0); HGB 13.1 gm/dL (11.4-16.0); MCH 28.8 pg (25.0-35.0); MCHC 31.7 g/dL (31.0-37.0); Mean Platelet Volume 6.7; Platelet Count 289 k/uL (150-450); RBC 4.54 m/uL (3.80-5.40); RDW 12.7 % (11.5-15.5); WBC 3.8 k/uL (3.8-10.6)
[2018-08-05 16:13] LABS: Albumin 4.2 g/dL (3.80-4.90); Albumin/Globulin Ratio 2.21 (1.20-2.10); Anion Gap 5.3 mmol/L (4.00-12.00); Calcium 9.4 mg/dL (8.7-10.3); Carbon Dioxide 31.7 mmol/L (21.6-31.8); Globulin 1.9 g/dL (2.1-3.7); LDL Cholesterol,Calculated 117.6 mg/dL (0.0-131.0); Potassium 4.1 mmol/L (3.5-5.5); Total Bilirubin 0.7 mg/dL (0.2-1.2); Total Protein 6.1 g/dL (6.2-8.2); VLDL Calculation 23.4 mg/dL (5.00-40.00)
== END | disposition home or self-care (01) ==
LOC: LABWHC1 09:42
PROVIDERS: ATTEND Internal Medicine
DX: I10 Essential (primary) hypertension (principal); E78.5 Hyperlipidemia, unspecified; E55.9 Vitamin D deficiency, unspecified
CPT/HCPCS: 36415; 80053; 80061; 82306; 84443; 85027

== ENCOUNTER → 2019-04-07 | Outpatient (CLI) | payer MEDICARE, BC ==
[2019-04-07 10:23] LABS: HCT 40.5 % (34.0-46.0); HGB 13.1 gm/dL (11.4-16.0); MCH 29.3 pg (25.0-35.0); MCHC 32.4 g/dL (31.0-37.0); MCV 90.4 fL (80.0-100.0); Platelet Count 332 k/uL (150-450); RBC 4.48 m/uL (3.80-5.40); RDW 12.9 % (11.5-15.5); WBC 4.6 k/uL (3.8-10.6)
[2019-04-07 18:17] LABS: Rheumatoid Factor 6 IU/mL (0-15)
[2019-04-07 18:22] LABS: African American GFR (CKD) 81.3 (60.0-200.0); Albumin 4.2 g/dL (3.80-4.90); Albumin/Globulin Ratio 2.1 (1.60-3.17); Anion Gap 9.1 mmol/L (4.00-12.00); BUN/Creat Ratio 22.5 Ratio (12.00-20.00); Calcium 9.2 mg/dL (8.7-10.3); Carbon Dioxide 29.9 mmol/L (21.6-31.8); Chol/HDL Ratio 2.78; LDL Cholesterol,Calculated 131.8 mg/dL (0.0-131.0); Non-African American GFR(CKD) 70.1 (60.0-200.0); Potassium 4.4 mmol/L (3.5-5.5); Total Bilirubin 0.6 mg/dL (0.2-1.2); Total Protein 6.2 g/dL (6.2-8.2); Uric Acid 3.7 mg/dL (2.9-7.7); VLDL Calculation 21.2 mg/dL (5.00-40.00)
== END ==
LOC: LABWHC1 09:24
PROVIDERS: ATTEND Internal Medicine
DX: E78.5 Hyperlipidemia, unspecified (principal); J45.909 Unspecified asthma, uncomplicated; M19.90 Unspecified osteoarthritis, unspecified site
CPT/HCPCS: 36415; 80053; 80061; 84443; 84550; 85027; 86038; 86431

== ENCOUNTER → 2019-05-05 | Outpatient (CLI) | payer MEDICARE, BC ==
--- NOTE | 2019-05-05 11:33 | BD ---
EXAMINATION TYPE: Axial Bone Density DATE OF EXAM: 05/05/2019 COMPARISON: 10.11.2015 DEXA bone scan. CLINICAL HISTORY: 78 YR OLD FEMALE....ICD-10 CODE: M89.9 DISORDER OF BONE Height: 59 Weight: 156 FRAX RISK QUESTIONS: Family History (Parent hip fracture): YES History of Fracture in Adulthood: YES Secondary Osteoporosis: YES 3. Menopause before 45: YES RISK FACTORS HISTORY OF: HX OF RIBS AND WRIST FXs...RECENTLY Spine Fracture: T7, T8, T9 FXS IN HER 50'S History of Wrist Fracture: LT WRIST RECENTLY Surgery to LT HIP, REPLACEMENT 2014 Family History of Osteoporosis: YES, MOTHER AND SISTER, YES FXS Postmenopausal woman: HYST IN EARLY 40's Hyperparathyroidism: NO Adrenal Insufficiency: NO MEDICATIONS: Additional Medications: NORCO FOR PAIN NEEDED, LIPITOR, BP MEDS, LEXAPRO, VIT D, Additional History: OSTEOARTHRITIS, HYPERTENSION EXAM MEASUREMENTS: Bone mineral densitometry was performed using the [employer] System. Bone mineral density as measured about the Lumbar spine is: ----- L1-L4(G/cm2): 1.221 T Score Values are as follows: ----- L1: -1.3 ----- L2: 0.7 ----- L3: 1.9 ----- L4: 0.3 ----- L1-L4: 0.3 Bone mineral density has: Increased 7.1% since study of: 10.11.2015 Bone mineral density about the R hip (g/cm2): 0.939 T Score values are as follows: -----R Neck: -1.5 -----R Total: -0.5 Bone mineral density has: Decreased -0.2% since study of: 10.11.2015 FRAX%s: THERE IS A 30.4% CHANCE FOR A MAJOR OSTEOPOROTIC FX AND A 16.1% FOR HIP.....PROBABILITY FOR FX IN 10 YRS TIME IMPRESSION: Osteopenia (T Score between -2.5 and -1) remains present femoral neck level right hip. There remains slightly increased risk of fracture and the patient may be considered for treatment. Re-Screen 2-5 years. NOTE: T-SCORE=SD OF THE YOUNG ADULT MEAN.
== END | disposition home or self-care (01) ==
LOC: RADBDWWP 09:30
PROVIDERS: ATTEND Internal Medicine
DX: M85.89 Other specified disorders of bone density and structure, multiple sites (principal)
CPT/HCPCS: 77080

== ENCOUNTER 2019-06-09 10:42 | Inpatient (IN) | payer MEDICARE, BC ==
[2019-06-09] MEDS ORDERED: ONDANSETRON 4 MG/2 ML VIAL IVP STA (11:21)
[2019-06-09] MEDS ORDERED: PANTOPRAZOLE 40 MG/10 ML VIAL IVP STA (11:21)
[2019-06-09] MEDS ORDERED: SODIUM CHLORIDE 0.9% 1,000 ML IV STA (11:21)
--- NOTE | 2019-06-09 11:29 | ED ---
General Adult HPI - General Chief complaint: Weakness Stated complaint: Shingles Time Seen by Provider: 06/09/19 11:01 Source: patient, family, RN notes reviewed Mode of arrival: wheelchair Limitations: no limitations - History of Present Illness Initial comments: Patient is a pleasant 78-year-old female presenting to the emergency department with decreased oral intake and nausea vomiting/diarrhea. Onset of symptoms was 4 or 5 days ago. Patient states decreased appetite and decreased oral intake. Patient states diarrhea is only a couple times per day. Same with vomiting. Patient states around 4 days ago she did notice some redness on the right side of her face. Patient originally questions if this could be bug bites. Patient states she does have some swelling near her eye and difficulty opening her eye slightly however no loss of vision. Patient states there may be some mild discomfort of the eye itself. 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 Patient feels chilled. - Related Data Home Medications Medication Instructions Recorded Confirmed Hydrochlorothiazide 25 mg PO DAILY 08/27/14 06/09/19 Vit C/E/Zn/Coppr/Lutein/Zeaxan 1 cap PO BID 06/03/17 06/09/19 [Preservision Areds 2 Softgel] clonazePAM [KlonoPIN] 0.5 mg PO DAILY PRN 06/10/17 06/09/19 Escitalopram [Lexapro] 20 mg PO DAILY 06/09/19 06/09/19 Montelukast [Singulair] 10 mg PO DAILY PRN 06/09/19 06/09/19 Pantoprazole [Protonix] 40 mg PO AC-SUPPER 06/09/19 06/09/19 Allergies Allergy/AdvReac Type Severity Reaction Status Date / Time adhesive Allergy Rash/Hives Verified 06/09/19 12:01 METAL Allergy Rash/Hives Uncoded 10/29/17 13:03 Review of Systems ROS Statement: Those systems with pertinent positive or pertinent negative responses have been documented in the HPI. ROS Other: All systems not noted in ROS Statement are negative. Constitutional: Reports: fever (Subjective), chills Eyes: Reports: as per HPI. Denies: eye discharge, vision change ENT: Denies: ear pain Respiratory: Denies: cough, dyspnea Cardiovascular: Denies: chest pain Endocrine: Denies: fatigue Gastrointestinal: Reports: nausea, vomiting, diarrhea. Denies: abdominal pain Genitourinary: Denies: dysuria Musculoskeletal: Denies: back pain Skin: Reports: as per HPI, rash Neurological: Reports: weakness Past Medical History Past Medical History: GERD/Reflux, Hyperlipidemia, Hypertension, Osteoarthritis (OA), Vascular Disorder Additional Past Medical History / Comment(s): Varicose veins, History of Any Multi-Drug Resistant Organisms: None Reported Past Surgical History: Adenoidectomy, Appendectomy, Breast Surgery, Cholecystectomy, Hysterectomy, Joint Replacement, Tonsillectomy Additional Past Surgical History / Comment(s): ANUPAM CARPAL TUNNEL, BREAST AUGMENTATION AND THEN REMOVAL of implants, ANUPAM LARGE TOE surgery, left hip replacement, anupam cataracts, vitrectomy left eye. Eyelid surgery-bilateral Past Anesthesia/Blood Transfusion Reactions: Postoperative Nausea & Vomiting (P ONV) Additional Past Anesthesia/Blood Transfusion Reaction / Comment(s): SEVERE PONV, TONGUE SWELLED POST OP x1 Past Psychological History: Anxiety Smoking Status: Never smoker Past Alcohol Use History: None Reported Past Drug Use History: None Reported - Past Family History Mother Family Medical History: No Reported History Father Additional Family Medical History / Comment(s): CIRRHOIS OF THE LIVER General Exam Limitations: no limitations General appearance: alert Head exam: Present: atraumatic Eye exam: Present: normal appearance, other (Rash does extend to the right upper eyelid. There is mild swelling. There is some mild conjunctival injection. Flurosyn stain with minimal right lower uptake, nonspecific for dendritic formation.) ENT exam: Present: normal oropharynx Neck exam: Present: normal inspection Respiratory exam: Present: normal lung sounds bilaterally Cardiovascular Exam: Present: regular rate, normal rhythm GI/Abdominal exam: Present: soft. Absent: distended, tenderness Extremities exam: Present: normal inspection Neurological exam: Present: alert. Absent: motor sensory deficit Psychiatric exam: Present: normal affect, normal mood Skin exam: Present: rash (Right forehead with erythematous rash that stops at t he midline. This does extend to the right upper eyelid. There is some mild crusting/brownish lesions.) Course Vital Signs 06/09/19 10:50 Temperature 98.7 F Pulse Rate 83 Respiratory 17 Rate Blood Pressure 156/91 O2 Sat by Pulse 99 Oximetry EKG Findings - EKG Comments: EKG Findings:: Normal sinus rhythm at 80. TN 168. QRS 114. QT 406. QTc 460. Left axis. Left anterior fascicular block. LVH criteria. No acute ST change. Medical Decision Making - Medical Decision Making Patient reevaluated and still not feeling all that well. Patient and family updated on results and plan. Case was discussed in detail with Dr. Pineda, who will admit his patient with IV Valtrex. Ophthalmology will be placed on co nsult. - Lab Data Result diagrams: 06/09/19 11:25 06/09/19 11:25 Lab Results 06/09/19 06/09/19 Range/Units 11:25 11:25 WBC 6.8 (3.8-10.6) k/uL RBC 4.92 (3.80-5.40) m/uL Hgb 14.5 (11.4-16.0) gm/dL Hct 43.3 (34.0-46.0) % MCV 88.0 (80.0-100.0) fL MCH 29.4 (25.0-35.0) pg MCHC 33.4 (31.0-37.0) g/dL RDW 12.1 (11.5-15.5) % Plt Count 331 (150-450) k/uL Neutrophils % 82 % Lymphocytes % 8 % Monocytes % 7 % Eosinophils % 0 % Basophils % 0 % Neutrophils # 5.6 (1.3-7.7) k/uL Lymphocytes # 0.5 L (1.0-4.8) k/uL Monocytes # 0.5 (0-1.0) k/uL Eosinophils # 0.0 (0-0.7) k/uL Basophils # 0.0 (0-0.2) k/uL Sodium 135 L (137-145) mmol/L Potassium 4.1 (3.5-5.1) mmol/L Chloride 98 (98-107) mmol/L Carbon Dioxide 25 (22-30) mmol/L Anion Gap 12 mmol/L BUN 20 H (7-17) mg/dL Creatinine 0.54 (0.52-1.04) mg/dL Est GFR (CKD-EPI)AfAm >90 (>60 ml/min/1.73 sqM) Est GFR (CKD-EPI)NonAf >90 (>60 ml/min/1.73 sqM) Glucose 140 H (74-99) mg/dL Calcium 9.6 (8.4-10.2) mg/dL Total Bilirubin 0.7 (0.2-1.3) mg/dL AST 27 (14-36) U/L ALT 23 (9-52) U/L Alkaline Phosphatase 83 (38-126) U/L Total Protein 7.9 (6.3-8.2) g/dL Albumin 4.5 (3.5-5.0) g/dL Amylase 92 (30-110) U/L Lipase 137 (23-300) U/L - Radiology Data Radiology results: image reviewed (Abdominal x-ray shows nonspecific pattern.) Disposition Clinical Impression: Shingles, Vomiting Disposition: ADMITTED IP TO THIS HOSP Is patient prescribed a controlled substance at d/c from ED?: No Referrals: Ly Pineda MD [Primary Care Provider] - 1-2 days Decision Time: 14:11
[2019-06-09 11:44] LABS: Basophils % (A) 0 %; Eosinophils % (A) 0 %; HCT 43.3 % (34.0-46.0); HGB 14.5 gm/dL (11.4-16.0); Lymphocytes # (A) 0.5 k/uL (1.0-4.8); Lymphocytes % (A) 8 %; MCH 29.4 pg (25.0-35.0); MCHC 33.4 g/dL (31.0-37.0); Mean Platelet Volume 5.5; Monocytes # (A) 0.5 k/uL (0-1.0); Monocytes % (A) 7 %; Neutrophils # (A) 5.6 k/uL (1.3-7.7); Neutrophils % (A) 82 %; Platelet Count 331 k/uL (150-450); RBC 4.92 m/uL (3.80-5.40); RDW 12.1 % (11.5-15.5); WBC 6.8 k/uL (3.8-10.6)
[2019-06-09 11:53] LABS: ALT 23 U/L (9-52); AST 27 U/L (14-36); African American GFR (CKD) >90 (>60 ml/min/1.73 sqM); Albumin 4.5 g/dL (3.5-5.0); Alkaline Phosphatase 83 U/L (38-126); Amylase 92 U/L (30-110); Anion Gap 12 mmol/L; Blood Urea Nitrogen 20 mg/dL (7-17); Calcium 9.6 mg/dL (8.4-10.2); Carbon Dioxide 25 mmol/L (22-30); Chloride 98 mmol/L (98-107); Glucose 140 mg/dL (74-99); Non-African American GFR(CKD) >90 (>60 ml/min/1.73 sqM); Sodium 135 mmol/L (137-145); Total Bilirubin 0.7 mg/dL (0.2-1.3); Total Protein 7.9 g/dL (6.3-8.2)
[2019-06-09 12:03] LABS: Potassium 4.1 mmol/L (3.5-5.1)
--- NOTE | 2019-06-09 12:25 | XR ---
Abdomen HISTORY: Vomiting, weakness Frontal view the abdomen on 2 images Surgical clips are present in the right upper quadrant. Lung bases are clear. No evident bowel obstru ction or pneumoperitoneum. There is a scoliosis. Degenerative disc changes in the visualized spine. P ostop changes noted status post left hip arthroplasty. IMPRESSION: Nonspecific bowel gas pattern. Follow-up as indicated.
[2019-06-09] MEDS ORDERED: NALOXONE 0.4 MG/ML 1 ML VIAL IV PRN (14:15)
[2019-06-09] MEDS ORDERED: ONDANSETRON 4 MG/2 ML VIAL IVP PRN (14:15)
--- NOTE | 2019-06-09 14:19 | P.HPIM ---
History of Present Illness H&P Date: 06/09/19 Chief Complaint: Rash on right side of the face with vomiting and diarrhea This is a 78-year-old female who a known past medical history of hypertension, hyperlipidemia acid reflux depression and anxiety. Patient reports about 5 days ago starting to have vomiting and diarrhea after eating some fish. She's been having decreased appetite and decreased oral intake. Patient is reports developing a rash on the right side of her face around the right eye about 4 days ago. Initially she thought it was a bug bite that she may have received while cutting the grass. Symptoms continued to worsen she came into see Dr. Pineda and he recommended that she go to the ER and be admitted to the hospital for treatment for possible shingles. Patient has vesicles along the top of her forehead small vesicles along the eyelid. Redness is along the midline of her nose and forehead over to the right side of her face. There is some crusting along the eyelashes. She denies any prior history of shingles. She has been having chills and sweats. The last episode of vomiting was yesterday afternoon. She did have a small episode of diarrhea this morning. She denies any abdomina l pain. No blood was present near the vomit or stools. Patient denies any chest pain or shortness of breath. Denies any burning with urination. She is asking for when she can eat. Consults have been placed for interior specialist and infectious disease services. Review of Systems Please refer to HPI otherwise unremarkable Past Medical History Past Medical History: GERD/Reflux, Hyperlipidemia, Hypertension, Osteoarthritis (OA), Vascular Disorder Additional Past Medical History / Comment(s): Varicose veins, History of Any Multi-Drug Resistant Organisms: None Reported Past Surgical History: Adenoidectomy, Appendectomy, Breast Surgery, Cholecystectomy, Hysterectomy, Joint Replacement, Tonsillectomy Additional Past Surgical History / Comment(s): ANUPAM CARPAL TUNNEL, BREAST AUGMENTATION AND THEN REMOVAL of implants, ANUPAM LARGE TOE surgery, left hip replacement, anupam cataracts, vitrectomy left eye. Eyelid surgery-bilateral Past Anesthesia/Blood Transfusion Reactions: Postoperative Nausea & Vomiting (PO NV) Additional Past Anesthesia/Blood Transfusion Reaction / Comment(s): SEVERE PONV, TONGUE SWELLED POST OP x1 Past Psychological History: Anxiety Smoking Status: Never smoker Past Alcohol Use History: None Reported Past Drug Use History: None Reported - Past Family History Mother Family Medical History: No Reported History Father Additional Family Medical History / Comment(s): CIRRHOIS OF THE LIVER Medications and Allergies Home Medications Medication Instructions Recorded Confirmed Type Hydrochlorothiazide 25 mg PO DAILY 08/27/14 06/09/19 History Vit C/E/Zn/Coppr/Lutein/Zeaxan 1 cap PO BID 06/03/17 06/09/19 History [Preservision Areds 2 Softgel] clonazePAM [KlonoPIN] 0.5 mg PO DAILY PRN 06/10/17 06/09/19 History Escitalopram [Lexapro] 20 mg PO DAILY 06/09/19 06/09/19 History Montelukast [Singulair] 10 mg PO DAILY PRN 06/09/19 06/09/19 History Pantoprazole [Protonix] 40 mg PO AC-SUPPER 06/09/19 06/09/19 History Allergies Allergy/AdvReac Type Severity Reaction Status Date / Time adhesive Allergy Rash/Hives Verified 06/09/19 12:01 METAL Allergy Rash/Hives Uncoded 10/29/17 13:03 Physical Exam Vitals: Vital Signs Temp Pulse Resp BP Pulse Ox 06/09/19 10:50 98.7 F 83 17 156/91 99 Intake and Output 06/08/19 06/09/19 06/09/19 22:59 06:59 14:59 Other: Weight 68.039 kg Head normocephalic. Patient has vesicular rash along the right side of her for head. A few vesicles noted along the eyelid. Redness is along the right side of her face up into her nose. Neck supple Lungs clear to auscultation bilaterally no wheezing or crackles Heart regular rate and rhythm S1-S2, no rub or gallop Abdomen is soft nontender nondistended positive bowel sounds no hepatosplenomegaly Extremities no edema Neuro alert and orientated to 3 Results CBC & Chem 7: 06/09/19 11:25 06/09/19 11:25 Labs: Abnormal Lab Results - Last 24 Hours (Table) 06/09/19 06/09/19 Range/Units 11:25 11:25 Lymphocytes # 0.5 L (1.0-4.8) k/uL Sodium 135 L (137-145) mmol/L BUN 20 H (7-17) mg/dL Glucose 140 H (74-99) mg/dL Assessment and Plan Assessment: 1. Shingles on the right side of the face around the right eye. We'll start IV acyclovir. Consult infectious disease and ophthalmology. 2. Nausea, vomiting and diarrhea possibly due to a viral gastritis. Patient denies any abdominal pain. Abdominal x-ray is unremarkable. Amylase lipase and LFTs are normal. Continue with IV fluid hydration, Zofran as needed and Protonix 3. Mild dehydration with elevated BUN. Continue with IV fluids 4. Essential hypertension: Blood pressure elevated 156/91. Resume home blood pressure medications and monitor 5. Generalized anxiety and depression resume Lexapro and Klonopin 6. GERD continue with the Protonix GI prophylaxis Protonix and DVT prophylaxis Lovenox Time with Patient: Greater than 30 (Greater than 50% of the total time spent in counseling and coordination of care.I performed an examination of the patient and discussed their management with the physician Home Mortgage Disclosure Act Specialist. I have reviewed the Physician Home Mortgage Disclosure Act Specialist's notes and agree with the documented findings and plan of care)
[2019-06-09] MEDS ORDERED: MONTELUKAST 10 MG TAB PO PRN (14:21)
[2019-06-09] MEDS ORDERED: clonazePAM 0.5 MG TAB PO PRN (14:21)
[2019-06-09] MEDS ORDERED: ACETAMINOPHEN TAB 325 MG TAB PO PRN (14:22)
[2019-06-09] MEDS: ACYCLOVIR SODIUM 700 MG in SODIUM CHLORIDE 0.9% 100 ML IVPB SCH ×2 (15:57→23:03)
[2019-06-09] MEDS: SODIUM CHLORIDE 0.9% 1,000 ML IV SCH (15:58)
[2019-06-09 16:23] LABS: Appearance,Urine Clear (Clear); Bilirubin,Urine Negative (Negative); Blood,Urine Small (Negative); Color,Urine Yellow; Glucose,Urine (UA) Negative (Negative); Ketones,Urine 2+ (Negative); Leukocyte Esterase,Urine Negative (Negative); Mucus,Urine Many /hpf; Nitrite,Urine Negative (Negative); PH, Urine 6.5 (5.0-8.0); Protein,Urine 1+ (Negative); RBC,Urine 8 /hpf (0-5); Specific Gravity,Urine 1.017 (1.001-1.035); Urobilinogen,Urine <2.0 mg/dL (<2.0); WBC,Urine 2 /hpf (0-5)
[2019-06-09] MEDS: HYDROCHLOROTHIAZIDE 25 MG TAB PO SCH (16:54)
--- NOTE | 2019-06-09 17:02 | XR ---
EXAMINATION TYPE: XR wrist complete LT DATE OF EXAM: 06/09/2019 COMPARISON: NONE HISTORY: Wrist pain TECHNIQUE: 4 views FINDINGS: There is moderate narrowing of the first carpometacarpal joint with spurring. There is calc ification at the triangular cartilage. I see no fracture. The metacarpals are intact. There are degen erative cystic changes in the distal radius and ulna. IMPRESSION: Osteoarthritic changes and degenerative cyst formation. Chondrocalcinosis. No fracture se en.
[2019-06-09] MEDS ORDERED: PROCHLORPERAZINE 5 MG TAB PO PRN (21:43)
[2019-06-09] MEDS: HYDROcodone/APAP 5-325MG 1 EACH TAB PO PRN (22:01)
[2019-06-09] MEDS: VIT A,C & E-LUTEIN-MINERALS 1 EACH TAB PO SCH (22:03)
--- NOTE | 2019-06-10 00:12 | P.CONS ---
History of Present Illness - Reason for Consult Consult date: 06/09/19 Shingles Requesting physician: Ly Pineda - Chief Complaint Painful rash to the forehead area x 4 days - History of Present Illness Patient is 78 year old female sent to the ER with the PCP for management of her rash to the right forehead area with the patient has for about 4 days patient described the rash around the right forehead and scalp area started about 4 days ago patient initially thought was more of a bug bite; complaining of a burning pain to the share intensive about 5-6 out of 10 with some itching and the rash area as well patient, with some swelling and very minimal tenderness currently with no open wound or any drainage patient denies having any fever or any chills , the patient on arrival to the area has been afebrile but her white count has been normal the patient has been diagnosed with the shingles she was started on IV acyclovir admitted to the hospital infectious disease was consulted for further recommendation for antibiotic therapy Review of Systems Positive point has been mentioned in the HPI rest of the systems are negative Past Medical History Past Medical History: GERD/Reflux, Hyperlipidemia, Hypertension, Osteoarthritis (OA), Vascular Disorder Additional Past Medical History / Comment(s): Varicose veins, History of Any Multi-Drug Resistant Organisms: None Reported Past Surgical History: Adenoidectomy, Appendectomy, Breast Surgery, Cholecystectomy, Hysterectomy, Joint Replacement, Tonsillectomy Additional Past Surgical History / Comment(s): ANUPAM CARPAL TUNNEL, BREAST AUGMENTATION AND THEN REMOVAL of implants, ANUPAM LARGE TOE surgery, left hip replacement, anupam cataracts, vitrectomy left eye. Eyelid surgery-bilateral Past Anesthesia/Blood Transfusion Reactions: Postoperative Nausea & Vomiting (PONV) Additional Past Anesthesia/Blood Transfusion Reaction / Comm: SEVERE PONV, TONGUE SWELLED POST OP x1 Past Psychological History: Anxiety Smoking Status: Never smoker Past Alcohol Use History: None Reported Past Drug Use History: None Reported - Past Family History Mother Family Medical History: No Reported History Father Additional Family Medical History / Comment(s): CIRRHOIS OF THE LIVER Medications and Allergies Home Medications Medication Instructions Recorded Confirmed Type Hydrochlorothiazide 25 mg PO DAILY 08/27/14 06/09/19 History Vit C/E/Zn/Coppr/Lutein/Zeaxan 1 cap PO BID 06/03/17 06/09/19 History [Preservision Areds 2 Softgel] clonazePAM [KlonoPIN] 0.5 mg PO DAILY PRN 06/10/17 06/09/19 History Escitalopram [Lexapro] 20 mg PO DAILY 06/09/19 06/09/19 History Montelukast [Singulair] 10 mg PO DAILY PRN 06/09/19 06/09/19 History Pantoprazole [Protonix] 40 mg PO AC-SUPPER 06/09/19 06/09/19 History Allergies Allergy/AdvReac Type Severity Reaction Status Date / Time adhesive Allergy Rash/Hives Verified 06/09/19 12:01 METAL Allergy Rash/Hives Uncoded 10/29/17 13:03 Physical Exam Vitals: Vital Signs Temp Pulse Resp BP Pulse Ox 06/09/19 10:50 98.7 F 83 17 156/91 99 Intake and Output 06/09/19 06/09/19 06/09/19 06:59 14:59 22:59 Other: Weight 68.039 kg GENERAL DESCRIPTION: An elderly female lying in bed, no distress. No tachypnea or accessory muscle of respiration use. HEENT: Shows Pallor , no scleral icterus. Oral mucous membrane is dry. No pharyngeal erythema or thrush NECK: Trachea central, no thyromegaly. LUNGS: Unlabored breathing. Clear to auscultation anteriorly. No wheeze or crackle. HEART: S1, S2, regular rate and rhythm. No loud murmur ABDOMEN: Soft, no tenderness , guarding or rigidity, no organomegaly EXTREMITIES: No edema of feet. SKIN: Vesicular rash to the right forehead area distribution of the ophthalmic division of trigeminal nerve, no masses palpable. NEUROLOGICAL: The patient is awake, alert, oriented x3, mood and affect normal. Results CBC & Chem 7: 06/09/19 11:25 06/09/19 11:25 Labs: Abnormal Lab Results - Last 24 Hours (Table) 06/09/19 06/09/19 06/09/19 Range/Units 11:25 11:25 16:01 Lymphocytes # 0.5 L (1.0-4.8) k/uL Sodium 135 L (137-145) mmol/L BUN 20 H (7-17) mg/dL Glucose 140 H (74-99) mg/dL Urine Protein 1+ H (Negative) Urine Ketones 2+ H (Negative) Urine Blood Small H (Negative) Urine RBC 8 H (0-5) /hpf Urine Mucus Many H (None) /hpf Assessment and Plan Assessment: 1- patient presented to hospital with the painful rash of the right forehead which is currently in the distribution of the ophthalmic division of the trigeminal nerve involving only one dermatome with no evidence of any secondary cellulitis (1) Shingles Current Visit: Yes Status: Acute Code(s): B02.9 - ZOSTER WITHOUT COMPLICATIONS SNOMED Code(s): 3156089 Plan: 1-acyclovir 10 mg per KG every 8 hours 2-no need for systemic antibiotics therapy 3-Lyrica for postherpetic neuralgia Multiple family members questions concerned were answered We will follow on clinical condition and cultures to further adjust medication if needed Thank you for this consultation will follow this patient with you Time with Patient: Greater than 30
[2019-06-10] MEDS: ACYCLOVIR SODIUM 700 MG in SODIUM CHLORIDE 0.9% 100 ML IVPB SCH ×3 (05:52→22:56)
[2019-06-10] MEDS: SODIUM CHLORIDE 0.9% 1,000 ML IV SCH ×2 (05:53→17:48)
[2019-06-10] MEDS: HYDROCHLOROTHIAZIDE 25 MG TAB PO SCH (07:58)
[2019-06-10] MEDS: ESCITALOPRAM 20 MG TAB PO SCH (07:58)
[2019-06-10] MEDS: VIT A,C & E-LUTEIN-MINERALS 1 EACH TAB PO SCH ×2 (07:58→20:57)
[2019-06-10] MEDS: ENOXAPARIN 40 MG/0.4 ML SYRINGE SQ SCH (07:58)
[2019-06-10 08:55] LABS: Basophils % (A) 0 %; Eosinophils % (A) 0 %; HGB 13.1 gm/dL (11.4-16.0); Lymphocytes # (A) 0.8 k/uL (1.0-4.8); Lymphocytes % (A) 13 %; MCH 29.2 pg (25.0-35.0); MCHC 32.7 g/dL (31.0-37.0); MCV 89.1 fL (80.0-100.0); Mean Platelet Volume 5.5; Monocytes # (A) 0.4 k/uL (0-1.0); Monocytes % (A) 7 %; Neutrophils # (A) 4.4 k/uL (1.3-7.7); Neutrophils % (A) 76 %; Platelet Count 296 k/uL (150-450); RBC 4.49 m/uL (3.80-5.40); RDW 11.9 % (11.5-15.5); WBC 5.8 k/uL (3.8-10.6)
[2019-06-10 09:13] LABS: African American GFR (CKD) >90 (>60 ml/min/1.73 sqM); Anion Gap 8 mmol/L; Blood Urea Nitrogen 11 mg/dL (7-17); Calcium 8.5 mg/dL (8.4-10.2); Carbon Dioxide 29 mmol/L (22-30); Chloride 96 mmol/L (98-107); Glucose 203 mg/dL (74-99); Non-African American GFR(CKD) 86 (>60 ml/min/1.73 sqM); Sodium 133 mmol/L (137-145)
[2019-06-10 09:17] LABS: Potassium 2.7 mmol/L (3.5-5.1)
[2019-06-10] MEDS ORDERED: Potassium Replacement Protocol 1 EACH MISC MISCELLANE PRN (09:32)
[2019-06-10] MEDS: POTASSIUM CHLORIDE ER 20 MEQ TAB.ER PO SCH ×5 (09:52→16:27)
--- NOTE | 2019-06-10 12:37 | PN ---
PROGRESS NOTE DATE OF SERVICE: 06/10/2019 REASON FOR FOLLOWUP: Right forehead zoster, ophthalmic division. INTERVAL HISTORY: The patient is currently afebrile. The pain and discomfort to the right forehead rash area has decreased. Overall, induration decreased in intensity. Denies any pain on movement of the eyeball. No further nausea, no vomiting. No chest pain, shortness of breath or cough and no diarrhea. PHYSICAL EXAMINATION: Blood pressure 168/69 with a pulse of 70, temperature 99.2. She is 96% on room air. General description is an elderly female up in the bed in no distress. HEENT EXAMINATION: The right forehead rash has decreased in intensity. LUNGS: Unlabored breathing, clear to auscultation anteriorly. HEART: S1, S2. Regular rate and rhythm. ABDOMEN: Soft, no tenderness. LABS: White count 5.8 with a creatinine 0.62. Potassium was 2.7. DIAGNOSTIC IMPRESSION AND PLAN: Patient with right forehead shingles with distribution of ophthalmic division of the trigeminal nerve. Currently on IV acyclovir transition to oral Valtrex on discharge to finish a 7-day course of therapy. Ana for possible neuralgia and continue supportive care. MMODL / IJN: [id number] /
--- NOTE | 2019-06-10 13:27 | CONS ---
CONSULTATION DATE OF SERVICE: 06/10/2019 TIME: 12:57 p.m. HISTORY: This is a 78-year-old white female who noticed swelling and pain in the right periorbital region initially occurring several days ago. Over time, the swelling worsened and the patient ultimately was admitted to [facility] for treatment of presumed herpes zoster ophthalmicus. The patient is currently resting comfortably and IV antivirals are being administered. Since admission to the hospital, the patient states that the swelling has diminished in the right periorbital region and the vision remains good. EXAM: There is significant swelling, pustules, and erythema in the right V1 dermatome. The eyelid was able to open spontaneously. On penlight exam, the conjunctiva was quiet. The corneas was were both clear. The anterior chambers were deep and the irises were normal. Visual acuity measured 20/30 bilaterally. Pupils are equal, reactive to light. Extraocular movements were full and the remainder of the ophthalmic exam was otherwise unremarkable. IMPRESSION: Herpes zoster ophthalmicus, right side. At this point, there is no evidence of corneal or intra-ocular involvement. I agree with the systemic antivirals and would recommend followup in my office in 1 week's time to assure that no corneal involvement has occurred. I expect gradual resolution and the patient indeed states that she has been responding to the medication so far. Thank you much for this most kind referral. MINNIE / CARMELITA: [id number] /
--- NOTE | 2019-06-10 13:49 | P.PN ---
Subjective Progress Note Date: 06/10/19 This is a 78-year-old female who a known past medical history of hypertension, hyperlipidemia acid reflux depression and anxiety. Patient reports about 5 days ago starting to have vomiting and diarrhea after eating some fish. She's been having decreased appetite and decreased oral intake. Patient is reports developing a rash on the right side of her face around the right eye about 4 days ago. Initially she thought it was a bug bite that she may have received while cutting the grass. Symptoms continued to worsen she came into see Dr. Pineda and he recommended that she go to the ER and be admitted to the hospital for treatment for possible shingles. Patient has vesicles along the top of her forehead small vesicles along the eyelid. Redness is along the midline of her nose and forehead over to the right side of her face. There is some crusting along the eyelashes. She denies any prior history of shingles. She has been having chills and sweats. The last episode of vomiting was yesterday afternoon. She did have a small episode of diarrhea this morning. She denies any abdominal pain. No blood was present near the vomit or stools. Patient denies any chest pain or shortness of breath. Denies any burning with urination. She is asking for when she can eat. Consults have been placed for conference assistant and infectious disease services. On 06/10/2019 patient was seen and examined on the medical floor she is alert and oriented 3 in no apparent distress the pain in her right side of the face has improved she is feeling better she is still having significant rash involving the upper part of the right side of her face there is some conjunctival erythema. Ophthalmology and infectious disease consultation were reviewed, continue with IV acyclovir, potassium is low today at 2.7 will replace. Otherwise patient denies any other symptoms there is no fever or chills no headache or dizziness no chest pain no shortness of breath no cough no nausea or vomiting no abdominal pain no diarrhea no burning with urination no frequency or urgency no hematuria. Objective - Vital Signs Vital signs: Vital Signs Temp 98.2 F 06/10/19 05:00 Pulse 70 06/10/19 05:00 Resp 18 06/10/19 05:00 BP 168/69 06/10/19 05:00 Pulse Ox 96 06/10/19 05:00 Intake & Output 06/09/19 06/10/19 06/10/19 18:59 06:59 18:59 Intake Total 350 Output Total 20 Balance 330 Weight 68.039 kg Intake: Oral 350 Output: Emesis 20 Other: Voiding Method Toilet # Voids 1 1 # Bowel Movements 1 - Exam In general patient is alert and oriented 3 in no apparent distress Head normocephalic. Patient has vesicular rash along the right side of her for head. A few vesicles noted along the eyelid. Redness is along the right side of her face up into her nose. Neck supple no JVD no goiter Lungs clear to auscultation bilaterally no wheezing or crackles Heart regular rate and rhythm S1-S2, no rub or gallop Abdomen is soft nontender nondistended positive bowel sounds no hepatosplenomegaly Extremities no edema no cyanosis or clubbing Neuro no gross focal neurological deficits - Labs CBC & Chem 7: 06/10/19 08:41 06/10/19 08:41 Labs: Abnormal Lab Results - Last 24 Hours (Table) 06/09/19 06/10/19 06/10/19 Range/Units 16:01 08:41 08:41 Lymphocytes # 0.8 L (1.0-4.8) k/uL Sodium 133 L (137-145) mmol/L Potassium 2.7 L* (3.5-5.1) mmol/L Chloride 96 L (98-107) mmol/L Glucose 203 H (74-99) mg/dL Urine Protein 1+ H (Negative) Urine Ketones 2+ H (Negative) Urine Blood Small H (Negative) Urine RBC 8 H (0-5) /hpf Urine Mucus Many H (None) /hpf Assessment and Plan Plan: 1. Shingles on the right side of the face around the right eye. We'll start IV acyclovir. Consult infectious disease and ophthalmology, reviewed continue current management 2. Nausea, vomiting and diarrhea possibly due to a viral gastritis. Patient denies any abdominal pain. Abdominal x-ray is unremarkable. Amylase lipase and LFTs are normal. Continue with IV fluid hydration, Zofran as needed and Protonix 3. Mild dehydration with elevated BUN. Continue with IV fluids 4. Essential hypertension: Blood pressure elevated 156/91. Resume home blood pressure medications and monitor 5. Generalized anxiety and depression resume Lexapro and Klonopin 6. GERD continue with the Protonix 7. Hypokalemia correcting GI prophylaxis Protonix and DVT prophylaxis Lovenox Patient is improving possible discharge in the next 1-2 days on oral acyclovir
[2019-06-10] MEDS ORDERED: PANTOPRAZOLE 40 MG TABLET PO SCH (17:30)
[2019-06-10] MEDS: HYDROcodone/APAP 5-325MG 1 EACH TAB PO PRN (22:57)
[2019-06-11] MEDS: VIT A,C & E-LUTEIN-MINERALS 1 EACH TAB PO SCH (07:20)
[2019-06-11] MEDS: SODIUM CHLORIDE 0.9% 1,000 ML IV SCH (07:20)
[2019-06-11] MEDS: ACYCLOVIR SODIUM 700 MG in SODIUM CHLORIDE 0.9% 100 ML IVPB SCH (07:20)
[2019-06-11] MEDS: ENOXAPARIN 40 MG/0.4 ML SYRINGE SQ SCH ×2 (07:20→08:03)
[2019-06-11] MEDS: HYDROCHLOROTHIAZIDE 25 MG TAB PO SCH (07:20)
[2019-06-11] MEDS: ESCITALOPRAM 20 MG TAB PO SCH (07:20)
[2019-06-11 08:52] LABS: Basophils % (A) 1 %; Eosinophils # (A) 0.1 k/uL (0-0.7); Eosinophils % (A) 1 %; HGB 13.7 gm/dL (11.4-16.0); Lymphocytes # (A) 1.1 k/uL (1.0-4.8); Lymphocytes % (A) 19 %; MCH 28.6 pg (25.0-35.0); MCHC 31.8 g/dL (31.0-37.0); MCV 89.9 fL (80.0-100.0); Monocytes # (A) 0.5 k/uL (0-1.0); Monocytes % (A) 9 %; Neutrophils # (A) 3.8 k/uL (1.3-7.7); Neutrophils % (A) 67 %; Platelet Count 326 k/uL (150-450); RBC 4.79 m/uL (3.80-5.40); WBC 5.7 k/uL (3.8-10.6)
[2019-06-11 09:04] LABS: ALT 17 U/L (9-52); AST 23 U/L (14-36); African American GFR (CKD) >90 (>60 ml/min/1.73 sqM); Albumin 3.9 g/dL (3.5-5.0); Alkaline Phosphatase 64 U/L (38-126); Anion Gap 12 mmol/L; Blood Urea Nitrogen 6 mg/dL (7-17); Calcium 8.9 mg/dL (8.4-10.2); Carbon Dioxide 27 mmol/L (22-30); Chloride 95 mmol/L (98-107); Glucose 186 mg/dL (74-99); Non-African American GFR(CKD) 84 (>60 ml/min/1.73 sqM); Potassium 3.5 mmol/L (3.5-5.1); Sodium 134 mmol/L (137-145); Total Bilirubin 0.5 mg/dL (0.2-1.3); Total Protein 6.8 g/dL (6.3-8.2)
[2019-06-11 09:09] LABS: Glucose,Whole Blood 136 mg/dL (75-99)
[2019-06-11 10:22] LABS: Appearance,Urine Clear (Clear); Bilirubin,Urine Negative (Negative); Blood,Urine Negative (Negative); Color,Urine Light Yellow; Glucose,Urine (UA) Negative (Negative); Ketones,Urine Negative (Negative); Leukocyte Esterase,Urine Trace (Negative); Mucus,Urine Rare /hpf; Nitrite,Urine Negative (Negative); Protein,Urine Negative (Negative); RBC,Urine 1 /hpf (0-5); Specific Gravity,Urine 1.006 (1.001-1.035); Squamous Epithelial Cell,Urine <1 /hpf (0-4); Urobilinogen,Urine <2.0 mg/dL (<2.0); WBC,Urine 4 /hpf (0-5)
--- NOTE | 2019-06-11 11:56 | PN ---
PROGRESS NOTE DATE OF SERVICE: 06/11/2019 REASON FOR FOLLOWUP: Shingles. INTERVAL HISTORY: The patient is currently afebrile. The patient's forehead rash has decreased in intensity. Pain is currently controlled. Denies any blurry vision. No chest pain, shortness of breath, or cough. No vomiting, no diarrhea. PHYSICAL EXAMINATION: Blood pressure is 155/81 with pulse 69, temperature 97.7. She is 98% on room air. General description is an elderly female up in the chair, in no distress. RESPIRATORY SYSTEM: Unlabored breathing, clear to auscultation anteriorly. HEART: S1, S2. Regular rate and rhythm. ABDOMEN: Soft, no tenderness. RIGHT FOREHEAD: Rash has decreased in intensity. No new vesicle has been noticed. LABS: Creatinine 0.6 and white count 5.7. DIAGNOSTIC IMPRESSION AND PLAN: Patient with right V2 dermatome shingles with no evidence of any significant cellulitis, currently on IV acyclovir to continue with the plan to finish therapy with oral Valtrex. Questions and concerns were answered. MMODL / IJN: [id number] /
[2019-06-11 12:49] VITALS: PULSE 76; RESP 16; TEMP 98.2
[2019-06-11] MEDS ORDERED: POTASSIUM CHLORIDE ER 20 MEQ TAB.ER PO STA (13:08)
--- NOTE | 2019-06-11 13:32 | P.DS ---
Providers Date of admission: 06/09/19 14:15 Expected date of discharge: 06/11/19 Attending physician: Ly Pineda Consults: 06/09/19 14:11 Consult Physician Urgent Consulting Provider: Dillon Castano Consult Reason/Comments: Evaluate for herpes ophthalmicus Do you want consulting provider notified?: Yes 06/09/19 14:20 Consult Physician Routine Consulting Provider: Clay Mojica Consult Reason/Comments: shingles right side of face and around right eye Do you want consulting provider notified?: Yes Primary care physician: Ly [facility] Course: Discharge diagnosis 1. Shingles on the right forehead around the right eye. Patient treated with IV acyclovir 700 mg every 12 hours. Patient was seen by ophthalmology and infectious disease. Infectious diseases recommending 7 more days of Valtrex. 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 Add Lyrica 50 mg twice a day for neuropathic pain 2. Nausea, vomiting and diarrhea possibly due to a viral gastritis. Patient denies any abdominal pain. Abdominal x-ray is unremarkable. Amylase lipase and LFTs are normal. Symptoms resolved. Patient tolerating diet 3. Mild dehydration with elevated BUN. Improved 4. Essential hypertension: Blood pressure elevated at 173/89. Blood pressure has been elevated during this admission. Fluids were hep-locked. We'll have nursing staff recheck blood pressure and about half hour to 40 minutes before patient is discharged. If remains elevated will treat. However, blood pressures possibly elevated due to the IV fluids. 5. Generalized anxiety and depression resume Lexapro and Klonopin 6. GERD continue with the Protonix 7. Hypokalemia : Secondary to patient's diarrhea. Now improved. Potassium 3.5 at discharge. Patient receiving potassium supplement. We'll follow up with labs and office 8. Hyperglycemia: Patient has had some elevated blood sugars during this admission. A1c is pending. Educated patient on a low sugar diet. Will follow- up on the A1c in office and at that time we'll make a decision if patient requires treatment. 9. Urinalysis with trace leukocyte esterase. Patient is asymptomatic for urinary tract infection. Only 4 WBCs present in urinalysis. We'll monitor. Repeat urinalysis and office. Hospital course This is a 78-year-old female who a known past medical history of hypertension, hyperlipidemia acid reflux depression and anxiety. Patient reports about 5 days ago starting to have vomiting and diarrhea after eating some fish. She's been having decreased appetite and decreased oral intake. Patient is reports developing a rash on the right side of her face around the right eye about 4 days ago. Initially she thought it was a bug bite that she may have received while cutting the grass. Symptoms continued to worsen she came into see Dr. Pineda and he recommended that she go to the ER and be admitted to the hospital for treatment for possible shingles. Patient has vesicles along the top of her forehead small vesicles along the eyelid. Redness is along the midline of her nose and forehead over to the right side of her face. There is some crusting along the eyelashes. She denies any prior history of shingles. She has been having chills and sweats. The last episode of vomiting was yesterday afternoon. She did have a small episode of diarrhea this morning. She denies any abdominal pain. No blood was present near the vomit or stools. Patient denies any chest pain or shortness of breath. Denies any burning with urination. She is asking for when she can eat. Consults have been placed for talent scout and infectious disease services. On 06/10/2019 patient was seen and examined on the medical floor she is alert and oriented 3 in no apparent distress the pain in her right side of the face has improved she is feeling better she is still having significant rash involving the upper part of the right side of her face there is some conjunctival erythema. Ophthalmology and infectious disease consultation were reviewed, continue with IV acyclovir, potassium is low today at 2.7 will replace. Otherwise patient denies any other symptoms there is no fever or chills no headache or dizziness no chest pain no shortness of breath no cough no nausea or vomiting no abdominal pain no diarrhea no burning with urination no frequency or urgency no hematuria. 06/11/2019 patient is medically stable for discharge. She has been cleared by consulting physicians for discharge. She'll follow-up with ophthalmology in the office. We'll continue Valtrex 1 g 3 times a day for 7 days. Will follow-up in the office with Dr. Pineda on Saturday next week. Patient also be placed on Lyrica to help with the burning sensation in neuropathic pain that she has around the eye. Check BMP and urinalysis in office on Saturday with Dr. Pineda Follow-up on A1c I performed an examination of the patient and discussed their management with the physician Overlock Sewing Machine Operator. I have reviewed the Physician Overlock Sewing Machine Operator's notes and agree with the documented findings and plan of care Patient Condition at Discharge: Stable Plan - Discharge Summary New Discharge Prescriptions: New Pregabalin [Lyrica] 50 mg PO BID #60 cap valACYclovir HCL [Valtrex] 1,000 mg PO Q8HR #21 tab Continue Hydrochlorothiazide 25 mg PO DAILY Vit C/E/Zn/Coppr/Lutein/Zeaxan [Preservision Areds 2 Softgel] 1 cap PO BID clonazePAM [KlonoPIN] 0.5 mg PO DAILY PRN PRN Reason: Anxiety Montelukast [Singulair] 10 mg PO DAILY PRN PRN Reason: Allergy Symptoms Escitalopram [Lexapro] 20 mg PO DAILY Pantoprazole [Protonix] 40 mg PO AC-SUPPER Discharge Medication List Hydrochlorothiazide 25 mg PO DAILY 08/27/14 [History] Vit C/E/Zn/Coppr/Lutein/Zeaxan [Preservision Areds 2 Softgel] 1 cap PO BID 06/03/17 [History] clonazePAM [KlonoPIN] 0.5 mg PO DAILY PRN 06/10/17 [History] Escitalopram [Lexapro] 20 mg PO DAILY 06/09/19 [History] Montelukast [Singulair] 10 mg PO DAILY PRN 06/09/19 [History] Pantoprazole [Protonix] 40 mg PO AC-SUPPER 06/09/19 [History] Pregabalin [Lyrica] 50 mg PO BID #60 cap 06/11/19 [Rx] valACYclovir HCL [Valtrex] 1,000 mg PO Q8HR #21 tab 06/11/19 [Rx] Follow up Appointment(s)/Referral(s): Ly Pineda MD [Primary Care Provider] - 06/15/19 Patient Instructions/Handouts: Shingles (DC) Activity/Diet/Wound Care/Special Instructions: Diet: cardiac diet, diabetic diet Activity: as tolerated Discharge Disposition: HOME SELF-CARE
[2019-06-11 14:33] VITALS: BP 154/77
[2019-06-11 20:16] LABS: Hemoglobin A1C 5.9 % (4.0-6.0)
[2019-06-11] MEDS ORDERED: ACYCLOVIR SODIUM 700 MG in SODIUM CHLORIDE 0.9% 100 ML IVPB SCH (21:00)
== END 2019-06-11 15:00 | disposition home or self-care (01) | DRG 596 ==
LOC: EC 10:42 → 4MS4W 14:15
PROVIDERS: ADMIT Internal Medicine; ATTEND Internal Medicine
DX: B02.9 Zoster without complications (principal); B02.30 Zoster ocular disease, unspecified; E78.5 Hyperlipidemia, unspecified; E86.0 Dehydration; E87.6 Hypokalemia; F32.9 Major depressive disorder, single episode, unspecified; F41.1 Generalized anxiety disorder; I10 Essential (primary) hypertension; K21.9 Gastro-esophageal reflux disease without esophagitis; Z79.899 Other long term (current) drug therapy; Z90.710 Acquired absence of both cervix and uterus; Z88.8 Allergy status to other drugs, medicaments and biological substances; Z96.643 Presence of artificial hip joint, bilateral; Z98.42 Cataract extraction status, left eye; Z98.41 Cataract extraction status, right eye; A08.4 Viral intestinal infection, unspecified; R94.4 Abnormal results of kidney function studies; R73.9 Hyperglycemia, unspecified
CPT/HCPCS: 36415; 74018; 80048; 80053; 81001; 82150; 83036; 83690; 83735; 84132; 85025; 93005; 96361; 96365; 96375; 96376; 99285

== ENCOUNTER → 2019-10-06 | Outpatient (CLI) | payer MEDICARE, BC ==
[2019-10-06 10:50] LABS: HCT 40.5 % (34.0-46.0); HGB 12.8 gm/dL (11.4-16.0); MCH 28.8 pg (25.0-35.0); MCHC 31.6 g/dL (31.0-37.0); MCV 91.3 fL (80.0-100.0); Mean Platelet Volume 6.6; Platelet Count 352 k/uL (150-450); RBC 4.44 m/uL (3.80-5.40); RDW 12.4 % (11.5-15.5); WBC 5.3 k/uL (3.8-10.6)
[2019-10-06 16:31] LABS: African American GFR (CKD) 80.7 (60.0-200.0); Albumin 4.3 g/dL (3.80-4.90); Albumin/Globulin Ratio 2.26 (1.60-3.17); Anion Gap 7.9 mmol/L (4.00-12.00); BUN/Creat Ratio 26.25 Ratio (12.00-20.00); Calcium 9.6 mg/dL (8.7-10.3); Carbon Dioxide 29.1 mmol/L (21.6-31.8); Chol/HDL Ratio 2.45; Globulin 1.9 g/dL (1.6-3.3); LDL Cholesterol,Calculated 100.2 mg/dL (0.0-131.0); Non-African American GFR(CKD) 69.6 (60.0-200.0); Potassium 4.3 mmol/L (3.5-5.5); Total Bilirubin 0.7 mg/dL (0.2-1.2); Total Protein 6.2 g/dL (6.2-8.2); VLDL Calculation 21.8 mg/dL (5.00-40.00)
== END | disposition home or self-care (01) ==
LOC: LABWHC1 09:49
PROVIDERS: ATTEND Internal Medicine
DX: I10 Essential (primary) hypertension (principal); E78.5 Hyperlipidemia, unspecified; E55.9 Vitamin D deficiency, unspecified
CPT/HCPCS: 36415; 80053; 80061; 82306; 84443; 85027

== ENCOUNTER 2020-01-18 12:39 | Emergency (ER) | payer MEDICARE, BC ==
[2020-01-18 12:47] VITALS: RESP 18; TEMP 98.2
[2020-01-18] MEDS ORDERED: LIDOCAINE 1% INJ 10MG/ML (20 ML MDV) SQ ONE (13:41)
[2020-01-18] MEDS ORDERED: MORPHINE SULFATE 4 MG/ML SYRINGE IVP STA (13:51)
--- NOTE | 2020-01-18 14:06 | XR ---
EXAMINATION TYPE: XR hand complete RT DATE OF EXAM: 01/18/2020 COMPARISON: NONE HISTORY: Laceration and pain fourth digit TECHNIQUE: Three views are submitted. FINDINGS: There is severe arthropathy of all DIP and third through fifth PIP joints. 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 Diffuse osteopenia noted. There is a soft tissue amputation of the tuft of the distal fourth digit with comminuted fracture of the tuft of the distal phalanx. IMPRESSION: 1. Comminuted fracture with soft tissue amputation tuft distal phalanx fourth digit. 2. 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
--- NOTE | 2020-01-18 14:46 | ED ---
Wound/Laceration HPI - General Chief Complaint: Wound/Laceration Stated Complaint: cut finger Time Seen by Provider: 01/18/20 13:23 Source: patient Mode of arrival: ambulatory Limitations: no limitations - History of Present Illness Initial Comments: Patient is an 79-year-old female presenting to the emergency department with a chief complaint of cutting the finger. Patient reports she was mowing the grass with her finger was caught between a branch and a sterile will lawnmower. Patient reports she lacerated her right fourth digit. Patient reports initially there was quite a bit of bleeding which has since slightly resolved. Reports limited amount of pain and she is able to tolerate without any medication. States her tetanus is up-to-date. Denies any alleviating or aggravating factors. States there was a piece of skin that was left at home. - Related Data Home Medications Medication Instructions Recorded Confirmed Hydrochlorothiazide 25 mg PO DAILY 08/27/14 06/09/19 Vit C/E/Zn/Coppr/Lutein/Zeaxan 1 cap PO BID 06/03/17 06/09/19 [Preservision Areds 2 Softgel] clonazePAM [KlonoPIN] 0.5 mg PO DAILY PRN 06/10/17 06/09/19 Escitalopram [Lexapro] 20 mg PO DAILY 06/09/19 06/09/19 Montelukast [Singulair] 10 mg PO DAILY PRN 06/09/19 06/09/19 Pantoprazole [Protonix] 40 mg PO AC-SUPPER 06/09/19 06/09/19 Previous Rx's Medication Instructions Recorded Pregabalin [Lyrica] 50 mg PO BID #60 cap 06/11/19 valACYclovir HCL [Valtrex] 1,000 mg PO Q8HR #21 tab 06/11/19 Allergies Allergy/AdvReac Type Severity Reaction Status Date / Time adhesive Allergy Rash/Hives Verified 01/18/20 12:46 METAL Allergy Rash/Hives Uncoded 01/18/20 12:46 Review of Systems ROS Statement: Those systems with pertinent positive or pertinent negative responses have been documented in the HPI. ROS Other: All systems not noted in ROS Statement are negative. Past Medical History Past Medical History: GERD/Reflux, Hyperlipidemia, Hypertension, Osteoarthritis (OA), Vascular Disorder Additional Past Medical History / Comment(s): Varicose veins, History of Any Multi-Drug Resistant Organisms: None Reported Past Surgical History: Adenoidectomy, Appendectomy, Breast Surgery, Cholecystectomy, Hysterectomy, Joint Replacement, Tonsillectomy Additional Past Surgical History / Comment(s): ANUPAM CARPAL TUNNEL, BREAST AUGMENTATION AND THEN REMOVAL of implants, ANUPAM LARGE TOE surgery, left hip replacement, anupam cataracts, vitrectomy left eye. Eyelid surgery-bilateral Past Anesthesia/Blood Transfusion Reactions: Postoperative Nausea & Vomiting (PONV) Additional Past Anesthesia/Blood Transfusion Reaction / Comment(s): SEVERE PONV, TONGUE SWELLED POST OP x1 Past Psychological History: Anxiety Smoking Status: Never smoker Past Alcohol Use History: None Reported Past Drug Use History: None Reported - Past Family History Mother Family Medical History: No Reported History Father Additional Family Medical History / Comment(s): CIRRHOIS OF THE LIVER General Exam Limitations: no limitations General appearance: alert, in no apparent distress Head exam: Present: atraumatic, normocephalic Eye exam: Present: normal appearance, PERRL, EOMI Pupils: Present: normal accommodation ENT exam: Present: normal exam, normal oropharynx, mucous membranes moist Neck exam: Present: normal inspection, full ROM Respiratory exam: Present: normal lung sounds bilaterally Cardiovascular Exam: Present: regular rate, normal rhythm, normal heart sounds Extremities exam: Present: full ROM, tenderness (Tenderness at the site of laceration.), normal capillary refill, other (+2 ulnar and radial pulses bilateral.). Absent: normal inspection (Skin avulsion on the distal end of the right fifth digit. No injury to the nail or nailbed.) Back exam: Present: normal inspection Neurological exam: Present: alert, oriented X3 Psychiatric exam: Present: normal affect, normal mood Skin exam: Present: warm, dry, intact, normal color Course Vital Signs 01/18/20 01/18/20 12:42 15:20 Temperature 98.2 F Pulse Rate 92 91 Respiratory 18 18 Rate Blood Pressure 206/93 194/96 O2 Sat by Pulse 99 97 Oximetry Procedures - Laceration Laceration #1 Consent Obtained: verbal consent Indication: laceration Site: other (Finger) Size (cm): 3 Description: flap, irregular, clean Sedation/Analgesia: none Anesthetic Used: lidocaine 1% Anesthesia Technique: nerve block (Digital block) Amount (mls): 5 Pre-repair: irrigated extensively, deep structures intact Type of Sutures: nylon Size of Sutures: 4-0 Number of Sutures: 9 Technique: simple, interrupted Patient Tolerated Procedure: well, no complications Medical Decision Making - Medical Decision Making Patient is an 79-year-old female presenting to the emergency department with a chief complaint of a cut on the finger. Exam patient appears to have a significant skin avulsion on the distal end of the right fourth digit. This appears to be partial amputation of the distal right fourth digit. X-ray obtained shows a commuted fracture with soft tissue amputation tuft distal phalanx fourth digit. Patient given IV Ancef. Patient also given analgesia. Patient was given a digital block with lidocaine. The injured area was sutured with 9 sutures. I attempted to close the large avulsion site. Patient advised to follow-up with orthopedics tomorrow. Return primers were thoroughly discussed with patient is understanding and agreeable. Case discussed with physician. Disposition Clinical Impression: Laceration, Open fracture of tuft of distal phalanx of finger Disposition: HOME SELF-CARE Condition: Good Instructions (If sedation given, give patient instructions): Laceration (DC), Finger Laceration (ED) Additional Instructions: Follow-up with orthopedics. Return to emergency department if symptoms worsen. Is patient prescribed a controlled substance at d/c from ED?: No Referrals: Ly Pineda MD [Primary Care Provider] - 1-2 days Rj Artis DO [Medical Doctor] - 1-2 days Time of Disposition: 14:46
[2020-01-18] MEDS ORDERED: ACET/COD 300 MG/30 MG STARTER PACK 6 TAB BTL PO STA (14:57)
[2020-01-18 15:23] VITALS: PULSE 91
[2020-01-18 15:27] VITALS: BP 194/96
== END 2020-01-18 15:32 | disposition home or self-care (01) ==
LOC: EC 12:39
DX: S62.634B Displaced fracture of distal phalanx of right ring finger, initial encounter for open fracture (principal); I10 Essential (primary) hypertension; K21.9 Gastro-esophageal reflux disease without esophagitis; F41.9 Anxiety disorder, unspecified; M19.90 Unspecified osteoarthritis, unspecified site; Z79.899 Other long term (current) drug therapy; Z91.048 Other nonmedicinal substance allergy status; Z91.09 Other allergy status, other than to drugs and biological substances; Z96.642 Presence of left artificial hip joint; W31.89XA Contact with other specified machinery, initial encounter; Y93.H2 Activity, gardening and landscaping; Y92.007 Garden or yard of unspecified non-institutional (private) residence as the place of occurrence of the external cause
CPT/HCPCS: 73130; 99283; 12002; 96365; 96375; J2270; J0690; J2001

== ENCOUNTER 2020-06-07 12:41 | Inpatient (IN) | payer MEDICARE, BC ==
--- NOTE | 2020-06-07 13:02 | ED ---
General Adult HPI - General Chief complaint: Recheck/Abnormal Lab/Rx Stated complaint: abn labs Time Seen by Provider: 06/07/20 12:52 Source: patient Mode of arrival: ambulatory Limitations: no limitations - History of Present Illness Initial comments: Dictation was produced using [employer] dictation software. please excuse any grammatical, word or spelling errors. This patient was cared for during a federal and state declared state of emergency secondary to Covid 19 Chief Complaint: 79-year-old female presents with abnormal outpatient lab History of Present Illness: Is an 79-year-old female she had routine blood work performed today. Patient states she was told to come here by primary care physician for improvement of 6.0. Patient denies any GI bleed. She denies any bleeding anywhere. Any back pain. Patient is complaining of one week of worsening shortness of breath. Patient also complains of some mild swelling to her bilateral lower extremity. She has no pain complaints at this time. She does not take any blood thinning medications. The ROS documented in this emergency department record has been reviewed and c onfirmed by me. Those systems with pertinent positive or negative responses have been documented in the HPI. All other systems are other negative and/or noncontributory. PHYSICAL EXAM: General Impression: Alert and oriented x3, not in acute distress HEENT: Normocephalic atraumatic, extra-ocular movements intact, pupils equal and reactive to light bilaterally, mucous membranes moist. Cardiovascular: Heart regular rate and rhythm Chest: Able to complete full sentences, no retractions, no tachypnea Abdomen: abdomen soft, non-tender, non-distended, no organomegaly Musculoskeletal: Pulses present and equal in all extremities, no peripheral edema Motor: no focal deficits noted Neurological: CN II-XII grossly intact, no focal motor or sensory deficits noted Skin: Intact with no visualized rashes Psych: Normal affect and mood Digital rectal exam: No gross blood ED course:-year-old female with abnormal hemoglobin that was performed on routine blood work ordered by her primary care physician. Vital signs upon arrival are within acceptable limits. Labs from PCPs office reviewed with a h emoglobin of 6.0. He was also findings of macrocytosis. Laboratory evaluation obtained. He will 6.3. There is evidence for microcytosis. Coag panel is unremarkable. Metabolic panel is negative. Stool occult blood is negative. Patient's anemia is likely secondary to iron deficiency given patient's CBC. Patient be admitted with ordered for transfusion 1 unit of blood. Case was discussed with Dr. Pineda who is willing to accept patients care for admission and observation. Patient given Protonix. GI was consulted per request by Dr. Pineda. EKG interpretation: Ventricular rate 93, normal sinus rhythm,. 184, QRS 114, QTc 457. No UT prolongation, no QTC prolongation, no ST or T-wave changes noted. EKG compared to 06/09/2019 showing no changes. Overall, this EKG is unremarkable - Related Data Home Medications Medication Instructions Recorded Confirmed hydroCHLOROthiazide 25 mg PO DAILY 08/27/14 06/09/19 Vit C/E/Zn/Coppr/Lutein/Zeaxan 1 cap PO BID 06/03/17 06/09/19 [Preservision Areds 2 Softgel] clonazePAM [KlonoPIN] 0.5 mg PO DAILY PRN 06/10/17 06/09/19 Escitalopram [Lexapro] 20 mg PO DAILY 06/09/19 06/09/19 Montelukast [Singulair] 10 mg PO DAILY PRN 06/09/19 06/09/19 Pantoprazole [Protonix] 40 mg PO AC-SUPPER 06/09/19 06/09/19 Previous Rx's Medication Instructions Recorded Pregabalin [Lyrica] 50 mg PO BID #60 cap 06/11/19 valACYclovir HCL [Valtrex] 1,000 mg PO Q8HR #21 tab 06/11/19 Allergies Allergy/AdvReac Type Severity Reaction Status Date / Time adhesive Allergy Rash/Hives Verified 06/07/20 12:49 METAL Allergy Rash/Hives Uncoded 06/07/20 12:49 Review of Systems ROS Statement: Those systems with pertinent positive or pertinent negative responses have been documented in the HPI. ROS Other: All systems not noted in ROS Statement are negative. Past Medical History Past Medical History: GERD/Reflux, Hyperlipidemia, Hypertension, Osteoarthritis (OA), Vascular Disorder Additional Past Medical History / Comment(s): Varicose veins, History of Any Multi-Drug Resistant Organisms: None Reported Past Surgical History: Adenoidectomy, Appendectomy, Breast Surgery, Cholecystectomy, Hysterectomy, Joint Replacement, Tonsillectomy Additional Past Surgical History / Comment(s): ANUPAM CARPAL TUNNEL, BREAST AUGMENTATION AND THEN REMOVAL of implants, ANUPAM LARGE TOE surgery, left hip replacement, anupam cataracts, vitrectomy left eye. Eyelid surgery-bilateral Past Anesthesia/Blood Transfusion Reactions: Postoperative Nausea & Vomiting (PONV) Additional Past Anesthesia/Blood Transfusion Reaction / Comment(s): SEVERE PONV, TONGUE SWELLED POST OP x1 Past Psychological History: Anxiety Smoking Status: Never smoker Past Alcohol Use History: None Reported Past Drug Use History: None Reported - Past Family History Mother Family Medical History: No Reported History Father Additional Family Medical History / Comment(s): CIRRHOIS OF THE LIVER General Exam Limitations: no limitations Course Vital Signs 06/07/20 06/07/20 06/07/20 12:46 13:02 13:48 Temperature 98.1 F Pulse Rate 97 100 Respiratory 20 22 24 Rate Blood Pressure 168/78 179/81 O2 Sat by Pulse 99 100 Oximetry Medical Decision Making - Lab Data Result diagrams: 06/07/20 13:20 06/07/20 13:20 Lab Results 06/07/20 06/07/20 06/07/20 Range/Units 13:20 13:20 13:20 WBC 6.9 (3.8-10.6) k/uL RBC 3.11 L (3.80-5.40) m/uL Hgb 6.3 L* (11.4-16.0) gm/dL Hct 23.0 L (34.0-46.0) % MCV 74.0 L (80.0-100.0) fL MCH 20.3 L (25.0-35.0) pg MCHC 27.5 L (31.0-37.0) g/dL RDW 15.7 H (11.5-15.5) % Plt Count 461 H (150-450) k/uL Neutrophils % 75 % Lymphocytes % 13 % Monocytes % 7 % Eosinophils % 1 % Basophils % 1 % Neutrophils # 5.2 (1.3-7.7) k/uL Lymphocytes # 0.9 L (1.0-4.8) k/uL Monocytes # 0.5 (0-1.0) k/uL Eosinophils # 0.1 (0-0.7) k/uL Basophils # 0.1 (0-0.2) k/uL Hypochromasia Marked Poikilocytosis Slight Microcytosis Slight PT 9.7 (9.0-12.0) sec INR 0.9 (<1.2) APTT 21.7 L (22.0-30.0) sec Sodium 134 L (137-145) mmol/L Potassium 4.4 (3.5-5.1) mmol/L Chloride 98 (98-107) mmol/L Carbon Dioxide 29 (22-30) mmol/L Anion Gap 7 mmol/L BUN 15 (7-17) mg/dL Creatinine 0.69 (0.52-1.04) mg/dL Est GFR (CKD-EPI)AfAm >90 (>60 ml/min/1.73 sqM) Est GFR (CKD-EPI)NonAf 83 (>60 ml/min/1.73 sqM) Glucose 102 H (74-99) mg/dL Calcium 9.1 (8.4-10.2) mg/dL Total Bilirubin 0.5 (0.2-1.3) mg/dL AST 39 H (14-36) U/L ALT 29 (4-34) U/L Alkaline Phosphatase 81 (38-126) U/L Troponin I (0.000-0.034) ng/mL Total Protein 6.7 (6.3-8.2) g/dL Albumin 4.1 (3.5-5.0) g/dL Stool Occult Blood (Negative) 06/07/20 06/07/20 Range/Units 13:20 13:20 WBC (3.8-10.6) k/uL RBC (3.80-5.40) m/uL Hgb (11.4-16.0) gm/dL Hct (34.0-46.0) % MCV (80.0-100.0) fL MCH (25.0-35.0) pg MCHC (31.0-37.0) g/dL RDW (11.5-15.5) % Plt Count (150-450) k/uL Neutrophils % % Lymphocytes % % Monocytes % % Eosinophils % % Basophils % % Neutrophils # (1.3-7.7) k/uL Lymphocytes # (1.0-4.8) k/uL Monocytes # (0-1.0) k/uL Eosinophils # (0-0.7) k/uL Basophils # (0-0.2) k/uL Hypochromasia Poikilocytosis Microcytosis PT (9.0-12.0) sec INR (<1.2) APTT (22.0-30.0) sec Sodium (137-145) mmol/L Potassium (3.5-5.1) mmol/L Chloride (98-107) mmol/L Carbon Dioxide (22-30) mmol/L Anion Gap mmol/L BUN (7-17) mg/dL Creatinine (0.52-1.04) mg/dL Est GFR (CKD-EPI)AfAm (>60 ml/min/1.73 sqM) Est GFR (CKD-EPI)NonAf (>60 ml/min/1.73 sqM) Glucose (74-99) mg/dL Calcium (8.4-10.2) mg/dL Total Bilirubin (0.2-1.3) mg/dL AST (14-36) U/L ALT (4-34) U/L Alkaline Phosphatase (38-126) U/L Troponin I <0.012 (0.000-0.034) ng/mL Total Protein (6.3-8.2) g/dL Albumin (3.5-5.0) g/dL Stool Occult Blood Negative (Negative) Disposition Clinical Impression: Anemia Disposition: ADMITTED IP TO THIS [facility] Condition: Fair Referrals: Ly Pineda MD [Primary Care Provider] - 1-2 days Decision Time: 14:28
[2020-06-07 13:53] LABS: INR 0.9 (<1.2); Prothrombin Time 9.7 sec (9.0-12.0)
[2020-06-07 13:54] LABS: ALT 29 U/L (4-34); AST 39 U/L (14-36); African American GFR (CKD) >90 (>60 ml/min/1.73 sqM); Albumin 4.1 g/dL (3.5-5.0); Alkaline Phosphatase 81 U/L (38-126); Anion Gap 7 mmol/L; Blood Urea Nitrogen 15 mg/dL (7-17); Calcium 9.1 mg/dL (8.4-10.2); Carbon Dioxide 29 mmol/L (22-30); Chloride 98 mmol/L (98-107); Glucose 102 mg/dL (74-99); Non-African American GFR(CKD) 83 (>60 ml/min/1.73 sqM); Potassium 4.4 mmol/L (3.5-5.1); Sodium 134 mmol/L (137-145); Total Bilirubin 0.5 mg/dL (0.2-1.3); Total Protein 6.7 g/dL (6.3-8.2)
[2020-06-07 13:55] LABS: Basophils # (A) 0.1 k/uL (0-0.2); Basophils % (A) 1 %; Eosinophils # (A) 0.1 k/uL (0-0.7); Eosinophils % (A) 1 %; Hypochromasia Marked; Lymphocytes # (A) 0.9 k/uL (1.0-4.8); Lymphocytes % (A) 13 %; MCH 20.3 pg (25.0-35.0); MCHC 27.5 g/dL (31.0-37.0); Mean Platelet Volume 6.5; Microcytosis Slight; Monocytes # (A) 0.5 k/uL (0-1.0); Monocytes % (A) 7 %; Neutrophils # (A) 5.2 k/uL (1.3-7.7); Neutrophils % (A) 75 %; Platelet Count 461 k/uL (150-450); Poikilocytosis Slight; RBC 3.11 m/uL (3.80-5.40); RDW 15.7 % (11.5-15.5); WBC 6.9 k/uL (3.8-10.6)
[2020-06-07 13:56] LABS: Partial Thromboplastin Time 21.7 sec (22.0-30.0)
[2020-06-07 14:06] LABS: HGB 6.3 gm/dL (11.4-16.0)
[2020-06-07] MEDS ORDERED: ONDANSETRON 4 MG/2 ML VIAL IVP PRN (14:25)
[2020-06-07] MEDS ORDERED: NALOXONE 0.4 MG/ML 1 ML VIAL IV PRN (14:25)
--- NOTE | 2020-06-07 18:39 | P.HPIM ---
History of Present Illness H&P Date: 06/07/20 Edwige Murrieta, is an 79-year-old female who had an outpatient blood test that revealed a hemoglobin of 6.0 patient was told to go to emergency room for further evaluation. Patient stated that she has been having significant shortness of breath over the last 2 weeks, she has been complaining of bilateral lower extremity edema, otherwise she denies any complaints, she has known history of arthritis and uses naproxen twice daily, her last hemoglobin 3 months ago was 11.2 patient was evaluated in the emergency room she was given 1 unit of red blood cell transfusion, gastroenterology consultation was requested for further evaluation. On review of systems there is no fever or chills no headache or dizziness no chest pain, no cough no nausea or vomiting no abdominal pain no diarrhea no bloo d in the stools no burning with urination no frequency or urgency and no hematuria, no weakness or numbness in any of the extremities no change in vision speech or gait. Past Medical History Past Medical History: GERD/Reflux, Hyperlipidemia, Hypertension, Osteoarthritis (OA), Vascular Disorder Additional Past Medical History / Comment(s): Varicose veins, History of Any Multi-Drug Resistant Organisms: None Reported Past Surgical History: Adenoidectomy, Appendectomy, Breast Surgery, Cholecystectomy, Hysterectomy, Joint Replacement, Tonsillectomy Additional Past Surgical History / Comment(s): ANUPAM CARPAL TUNNEL, BREAST AUGMENTATION AND THEN REMOVAL of implants, ANUPAM LARGE TOE surgery, left hip replacement, anupam cataracts, vitrectomy left eye. Eyelid surgery-bilateral Past Anesthesia/Blood Transfusion Reactions: Postoperative Nausea & Vomiting (PONV) Additional Past Anesthesia/Blood Transfusion Reaction / Comment(s): SEVERE PONV, TONGUE SWELLED POST OP x1 Past Psychological History: Anxiety Smoking Status: Never smoker Past Alcohol Use History: None Reported Past Drug Use History: None Reported - Past Family History Mother Family Medical History: No Reported History Father Additional Family Medical History / Comment(s): CIRRHOIS OF THE LIVER Medications and Allergies Home Medications Medication Instructions Recorded Confirmed Type hydroCHLOROthiazide 25 mg PO DAILY 08/27/14 06/07/20 History Pregabalin [Lyrica] 50 mg PO BID #60 cap 06/11/19 06/07/20 Rx Loratadine [Alavert] 10 mg PO HS PRN 06/07/20 06/07/20 History Mv-Min/Folic/Vit K/Lut/Tsep987 1 tab PO QAM 06/07/20 06/07/20 History [Alive Women's 50 Plus Tablet] Naproxen Sodium [Aleve] 440 mg PO BID 06/07/20 06/07/20 History Vitamin C/Biotin [Hair, Skin and 1 tab PO QAM 06/07/20 06/07/20 History Nails] Allergies Allergy/AdvReac Type Severity Reaction Status Date / Time adhesive Allergy Rash/Hives Verified 06/07/20 12:49 METAL Allergy Rash/Hives Uncoded 06/07/20 12:49 Physical Exam Vitals: Vital Signs Temp Pulse Resp BP Pulse Ox 06/07/20 16:30 98.5 F 79 18 134/71 99 06/07/20 16:20 98.5 F 83 18 146/81 96 06/07/20 16:00 98.5 F 84 16 141/85 98 06/07/20 15:50 98.2 F 86 16 142/74 99 06/07/20 13:48 100 24 179/81 100 06/07/20 13:02 22 06/07/20 12:46 98.1 F 97 20 168/78 99 Intake and Output 06/07/20 06/07/20 06/07/20 06:59 14:59 22:59 Intake Total 0 Balance 0 Intake: Blood Product 0 Rc As-1 Unit 0 [id number] Other: Weight 68.039 kg In general patient is alert and oriented 3 HEENT head normocephalic and atraumatic Neck is supple no JVD no goiter no lymphadenopathy Chest exam reveals a few scattered rhonchi no wheezing Cardiac exam reveals regular heart sounds no murmurs Abdomen is soft nontender no organomegaly with normal bowel sounds Extremity exam reveals 2+ edema bilaterally no cyanosis or clubbing Neurological examination reveals no gross focal deficit Results CBC & Chem 7: 06/07/20 13:20 06/07/20 13:20 Labs: Abnormal Lab Results - Last 24 Hours (Table) 06/07/20 06/07/20 06/07/20 Range/Units 13:20 13:20 13:20 RBC 3.11 L (3.80-5.40) m/uL Hgb 6.3 L* (11.4-16.0) gm/dL Hct 23.0 L (34.0-46.0) % MCV 74.0 L (80.0-100.0) fL MCH 20.3 L (25.0-35.0) pg MCHC 27.5 L (31.0-37.0) g/dL RDW 15.7 H (11.5-15.5) % Plt Count 461 H (150-450) k/uL Lymphocytes # 0.9 L (1.0-4.8) k/uL APTT 21.7 L (22.0-30.0) sec Sodium 134 L (137-145) mmol/L Glucose 102 H (74-99) mg/dL AST 39 H (14-36) U/L Crossmatch 06/07/ Range/Units 13:20 RBC (3.80-5.40) m/uL Hgb (11.4-16.0) gm/dL Hct (34.0-46.0) % MCV (80.0-100.0) fL MCH (25.0-35.0) pg MCHC (31.0-37.0) g/dL RDW (11.5-15.5) % Plt Count (150-450) k/uL Lymphocytes # (1.0-4.8) k/uL APTT (22.0-30.0) sec Sodium (137-145) mmol/L Glucose (74-99) mg/dL AST (14-36) U/L Crossmatch See Detail Assessment and Plan Plan: 1. Severe anemia, cause is unclear, gastroenterology consultation requested for possible EGD and colonoscopy, 1 unit of red blood cell transfusion ordered in the emergency room. 2. Underlying history of hypertension 3. Underlying history of hyperlipidemia 4. Underlying history of osteoarthritis, with history of using naproxen 5. Underlying history of gastroesophageal reflux disease At this time patient is admitted to medical floor she was given 1 unit of red blood cell transfusion in the emergency room She was started on IV Protonix Gastroenterology consultation requested Will follow closely
[2020-06-07] MEDS: PANTOPRAZOLE 40 MG/10 ML VIAL IV SCH (18:52)
[2020-06-07] MEDS: SODIUM CHLORIDE 0.9% 1,000 ML IV SCH (18:52)
[2020-06-07] MEDS: PREGABALIN 50 MG CAP PO SCH (21:02)
[2020-06-08 05:25] LABS: % Iron Saturation 1.15 (12.00-45.00); Folate, Serum >24.0 ng/mL; Iron 6 ug/dL (50-170); Total Iron Binding Capacity 524 ug/dL (228-460)
[2020-06-08] MEDS: PREGABALIN 50 MG CAP PO SCH ×2 (08:01→20:43)
[2020-06-08] MEDS: PANTOPRAZOLE 40 MG/10 ML VIAL IV SCH (08:02)
[2020-06-08 08:28] LABS: Anisocytosis Slight; HCT 26.2 % (34.0-46.0); HGB 7.3 gm/dL (11.4-16.0); Hypochromasia Marked; MCH 21.3 pg (25.0-35.0); MCV 76.1 fL (80.0-100.0); Mean Platelet Volume 7.1; Microcytosis Slight; Platelet Count 382 k/uL (150-450); Poikilocytosis Moderate; RBC 3.45 m/uL (3.80-5.40); WBC 4.8 k/uL (3.8-10.6)
[2020-06-08 08:36] LABS: African American GFR (CKD) >90 (>60 ml/min/1.73 sqM); Anion Gap 5 mmol/L; Blood Urea Nitrogen 13 mg/dL (7-17); Calcium 8.9 mg/dL (8.4-10.2); Carbon Dioxide 30 mmol/L (22-30); Chloride 101 mmol/L (98-107); Glucose 97 mg/dL (74-99); Non-African American GFR(CKD) 81 (>60 ml/min/1.73 sqM); Potassium 4.3 mmol/L (3.5-5.1); Sodium 136 mmol/L (137-145)
[2020-06-08] MEDS ORDERED: SODIUM FERRIC GLUCONAT-SUCROSE 125 MG in SODIUM CHLORIDE 0.9% 100 ML IVPB ONE (09:30)
--- NOTE | 2020-06-08 11:42 | P.PN ---
Subjective Progress Note Date: 06/08/20 Edwige Murrieta, is an 79-year-old female who had an outpatient blood test that revealed a hemoglobin of 6.0 patient was told to go to emergency room for further evaluation. Patient stated that she has been having significant shortness of breath over the last 2 weeks, she has been complaining of bilateral lower extremity edema, otherwise she denies any complaints, she has known history of arthritis and uses naproxen twice daily, her last hemoglobin 3 months ago was 11.2 patient was evaluated in the emergency room she was given 1 unit of red blood cell transfusion, gastroenterology consultation was requested for further evaluation. On review of systems there is no fever or chills no headache or dizziness no chest pain, no cough no nausea or vomiting no abdominal pain no diarrhea no blood in the stools no burning with urination no frequency or urgency and no hematuria, no weakness or numbness in any of the extremities no change in vision speech or gait. On 06/08/2020 patient and oriented 3. Patient reports shortness of breath has improved. Patient received 1 unit of PRBCs. Hemoglobin 7.3. Iron studies low. IV iron ordered. 2-D echo ordered. GI services following. At this time patient denies chest pain or shortness breath. Patient denies nausea vomiting diarrhea. Patient denies any urinary burning or frequency. Objective - Vital Signs Vital signs: Vital Signs Temp 98.1 F 06/08/20 05:00 Pulse 72 06/08/20 05:00 Resp 16 06/08/20 05:00 BP 135/63 06/08/20 05:00 Pulse Ox 98 06/08/20 05:00 Intake & Output 06/07/20 06/08/20 06/08/20 18:59 06:59 18:59 Intake Total 310 920 Balance 310 920 Weight 68.039 kg Intake: Intake, IV Titration 80 Amount Sodium Chloride 0.9% 1, 80 000 ml @ 20 mls/hr IV . Q24H [facility] Rx#:[id number] Oral 840 Blood Product 310 Rc As-1 Unit 310 [id number] Other: # Voids 1 - Exam In general patient is alert and oriented 3 HEENT head normocephalic and atraumatic Neck is supple no JVD no goiter no lymphadenopathy Chest exam reveals a few scattered rhonchi no wheezing Cardiac exam reveals regular heart sounds no murmurs Abdomen is soft nontender no organomegaly with normal bowel sounds Extremity exam reveals 2+ edema bilaterally no cyanosis or clubbing Neurological examination reveals no gross focal deficit - Labs CBC & Chem 7: 06/08/20 08:12 06/08/20 08:12 Labs: Abnormal Lab Results - Last 24 Hours (Table) 06/07/20 06/07/20 06/07/20 Range/Units 13:20 13:20 13:20 RBC 3.11 L (3.80-5.40) m/uL Hgb 6.3 L* (11.4-16.0) gm/dL Hct 23.0 L (34.0-46.0) % MCV 74.0 L (80.0-100.0) fL MCH 20.3 L (25.0-35.0) pg MCHC 27.5 L (31.0-37.0) g/dL RDW 15.7 H (11.5-15.5) % Plt Count 461 H (150-450) k/uL Lymphocytes # 0.9 L (1.0-4.8) k/uL APTT 21.7 L (22.0-30.0) sec Sodium 134 L (137-145) mmol/L Glucose 102 H (74-99) mg/dL Iron (50-170) ug/dL TIBC (228-460) ug/dL % Saturation (12.00-45.00) AST 39 H (14-36) U/L Crossmatch 06/07/20 06/07/20 06/08/20 Range/Units 13:20 18:39 08:12 RBC 3.45 L (3.80-5.40) m/uL Hgb 7.3 L (11.4-16.0) gm/dL Hct 26.2 L (34.0-46.0) % MCV 76.1 L (80.0-100.0) fL MCH 21.3 L (25.0-35.0) pg MCHC 28.0 L (31.0-37.0) g/dL RDW 17.0 H (11.5-15.5) % Plt Count (150-450) k/uL Lymphocytes # (1.0-4.8) k/uL APTT (22.0-30.0) sec Sodium (137-145) mmol/L Glucose (74-99) mg/dL Iron 6 L (50-170) ug/dL TIBC 524 H (228-460) ug/dL % Saturation 1.15 L (12.00-45.00) AST (14-36) U/L Crossmatch See Detail 06/08/20 Range/Units 08:12 RBC (3.80-5.40) m/uL Hgb (11.4-16.0) gm/dL Hct (34.0-46.0) % MCV (80.0-100.0) fL MCH (25.0-35.0) pg MCHC (31.0-37.0) g/dL RDW (11.5-15.5) % Plt Count (150-450) k/uL Lymphocytes # (1.0-4.8) k/uL APTT (22.0-30.0) sec Sodium 136 L (137-145) mmol/L Glucose (74-99) mg/dL Iron (50-170) ug/dL TIBC (228-460) ug/dL % Saturation (12.00-45.00) AST (14-36) U/L Crossmatch Assessment and Plan Assessment: 1. Severe anemia, cause is unclear, gastroenterology consultation requested for possible EGD and colonoscopy, 1 unit of red blood cell transfusion ordered in the emergency room. Hemoglobin improving to 7.3 status post 1 unit platelet transfusion. Iron studies low. IV iron has been ordered and GI services are following 2. Underlying history of hypertension 3. Underlying history of hyperlipidemia 4. Underlying history of osteoarthritis, with history of using naproxen 5. Underlying history of gastroesophageal reflux disease DVT prophylaxis SCDs due to severe anemia. GI prophylaxis Protonix Gastroenterology consultation requested 2-D echo has been ordered Will follow closely I performed an examination of the patient and discussed their management with the Nurse Practitioner. I have reviewed the Nurse Practitioner's notes and agree with the documented findings and plan of care
--- NOTE | 2020-06-08 13:45 | ECHOF ---
Referral Reason:swelling to lower extremities MEASUREMENTS -------- HEIGHT: 129.5 cm WEIGHT: 68.0 kg BP: RVIDd: 2.1 cm (< 3.3) IVSd: 1.2 cm (0.6 - 1.1) LVIDd: 3.9 cm (3.9 - 5.3) LVPWd: 1.1 cm (0.6 - 1.1) IVSs: 1.7 cm LVIDs: 1.8 cm LVPWs: 2.2 cm LAESV Index (A-L): 28.09 ml/m Ao Diam: 2.3 cm (2.0 - 3.7) AV Cusp: 1.9 cm (1.5 - 2.6) LA Diam: 3.4 cm (2.7 - 3.8) MV EXCURSION: 14.577 mm (> 18.000) MV EF SLOPE: 140 mm/s (70 - 150) EPSS: 0.3 cm MV E Tomy: 1.04 m/s MV DecT: 175 ms MV A Tomy: 1.19 m/s MV E/A Ratio: 0.88 AV maxP.21 mmHg AV meanP.02 mmHg RAP: 5.00 mmHg RVSP: 22.80 mmHg FINDINGS -------- This was a technically good study. The left ventricular size is normal. There is borderline concentric left ventricular hypertrophy. Overall left ventricular systolic function is normal with, an EF between 55 - 60 %. The diastolic filling pattern is normal for the age of the patient 14.01. The right ventricle is normal in size. The left atrial size is normal. Normal LA size by volume 22+/-6 ml/m2. The right atrial size is normal. The aortic valve is trileaflet and appears structurally normal. Peak/mean gradient across the Aorti c Valve is 15.21mmHg / 9.02mmHg. The mitral valve is normal. There is trace mitral regurgitation. The tricuspid valve appears structurally normal. Trace tricuspid regurgitation present. Right montez tricular systolic pressure is normal at < 35 mmHg. There is no pulmonic regurgitation present. The aortic root size is normal. Normal inferior vena cava with normal inspiratory collapse consistent with estimated right atrial pre ssure of 5 mmHg. There is no pericardial effusion. CONCLUSIONS -------- 1. The left ventricular size is normal. 2. There is borderline concentric left ventricular hypertrophy. 3. Overall left ventricular systolic function is normal with, an EF between 55 - 60 %. 4. The diastolic filling pattern is normal for the age of the patient 14.01 5. There is trace mitral regurgitation. 6. Trace tricuspid regurgitation present. 7. There is no pericardial effusion. WARPING MACHINE OPERATOR: Sana Sandoval RDCS
[2020-06-08] MEDS: SODIUM CHLORIDE 0.9% 1,000 ML IV SCH (14:49)
[2020-06-08] MEDS ORDERED: PEG 3350-NA SULF,BICARB,CL/KCL 4,000 ML BOTTLE PO ONE (17:02)
[2020-06-08] MEDS ORDERED: bisacodyL 5 MG TABLET.DR PO STA (17:03)
[2020-06-08] MEDS: LACTATED RINGERS 1,000 ML IV SCH (20:43)
[2020-06-09 06:08] LABS: Anisocytosis Slight; HCT 25.4 % (34.0-46.0); Hypochromasia Marked; MCHC 27.7 g/dL (31.0-37.0); MCV 75.8 fL (80.0-100.0); Mean Platelet Volume 6.8; Microcytosis Slight; Platelet Count 369 k/uL (150-450); Poikilocytosis Moderate; RBC 3.36 m/uL (3.80-5.40); RDW 16.8 % (11.5-15.5); WBC 4.5 k/uL (3.8-10.6)
[2020-06-09 06:56] LABS: Eosinophils # (M) 0.23 k/uL (0-0.7); Lymphocytes # (M) 1.08 k/uL (1.0-4.8); Metamyelocytes # (M) 0.27 k/uL (0); Metamyelocytes % 6 %; Monocytes # (M) 0.14 k/uL (0-1.0); Myelocytes # (M) 0.05 k/uL (0); Myelocytes % 1 %; Neutrophils # (M) 2.75 k/uL (1.3-7.7); Neutrophils % (M) 61 %; Nucleated Red Blood Cells 1 /100 WBC (0-0); Total Cells Counted 200
[2020-06-09 06:57] LABS: Large Platelets Present; RBC Fragments Present
--- NOTE | 2020-06-09 07:38 | P.CONS ---
History of Present Illness - Reason for Consult Consult date: 06/08/20 Iron deficiency anemia Requesting physician: Ly Pineda - Chief Complaint Anemia - History of Present Illness 79-year-old female with a medical history significant for hypertension, hyperlipidemia, GERD and osteoarthritis who presented to the hospital for evaluation of anemia. The patient had been seen with complaints of increasing shortness of breath and lower extremity edema with blood work significant for a severe iron deficiency anemia with a hemoglobin of 6.0. Currently hemoglobin is 7.3 with iron studies on admission significant for iron 6, saturation of 1.15, TIBC 524, and with a folate of 724 and B12 of 378. On questioning the patient had been using Aleve twice daily for treatment of osteoarthritis. She has cut down the dose from 2 tabs twice daily to 1 tablet twice daily. She denies any signs or symptoms of GI bleeding and stool testing was negative for occult blood, however iron studies suggestive of a severe iron deficiency anemia as stated. Last colonoscopy per her recollection was approximately 10 years ago. No abdominal pain reported. Review of Systems REVIEW OF SYSTEMS: CONSTITUTIONAL: Denies any fevers, chills, weight change or fatigue. CARDIOVASCULAR: Denies any chest pain, palpitations high or low blood pressures RESPIRATORY: Denies any hemoptysis or cough, but does report shortness of breath worse with exertion. GENITOURINARY: No dysuria or hematuria. MUSCULOSKELETAL: No weakness reported. SKIN: Denies any new rashes or lesions, jaundice or pallor, did report lower ex tremity swelling. PSYCHIATRIC: Denies any depression or anxiety. NEUROLOGY: Denies headache, denies any new focal deficits. EARS/NOSE/THROAT: No recent hearing change, congestion, nasal discharge or sore throat. EYES: No pain in eyes, discharge or change in vision. GASTROINTESTINAL: As per HPI. Past Medical History Past Medical History: GERD/Reflux, Hyperlipidemia, Hypertension, Osteoarthritis (OA), Vascular Disorder Additional Past Medical History / Comment(s): Varicose veins, History of Any Multi-Drug Resistant Organisms: None Reported Past Surgical History: Adenoidectomy, Appendectomy, Breast Surgery, Cholecystectomy, Hysterectomy, Joint Replacement, Tonsillectomy Additional Past Surgical History / Comment(s): ANUPAM CARPAL TUNNEL, BREAST AUGMENTATION AND THEN REMOVAL of implants, ANUAPM LARGE TOE surgery, left hip replacement, anupam cataracts, vitrectomy left eye. Eyelid surgery-bilateral Past Anesthesia/Blood Transfusion Reactions: Postoperative Nausea & Vomiting (PONV) Additional Past Anesthesia/Blood Transfusion Reaction / Comm: SEVERE PONV, TONGUE SWELLED POST OP x1 Past Psychological History: Anxiety Smoking Status: Never smoker Past Alcohol Use History: None Reported Past Drug Use History: None Reported - Past Family History Mother Family Medical History: No Reported History Father Additional Family Medical History / Comment(s): CIRRHOIS OF THE LIVER Medications and Allergies Home Medications Medication Instructions Recorded Confirmed Type hydroCHLOROthiazide 25 mg PO DAILY 08/27/14 06/07/20 History Pregabalin [Lyrica] 50 mg PO BID #60 cap 06/11/19 06/07/20 Rx Loratadine [Alavert] 10 mg PO HS PRN 06/07/20 06/07/20 History Mv-Min/Folic/Vit K/Lut/[id number] 1 tab PO QAM 06/07/20 06/07/20 History [Alive Women's 50 Plus Tablet] Naproxen Sodium [Aleve] 440 mg PO BID 06/07/20 06/07/20 History Vitamin C/Biotin [Hair, Skin and 1 tab PO QAM 06/07/20 06/07/20 History Nails] Allergies Allergy/AdvReac Type Severity Reaction Status Date / Time adhesive Allergy Rash/Hives Verified 06/07/20 12:49 METAL Allergy Rash/Hives Uncoded 06/07/20 12:49 Physical Exam Vitals: Vital Signs Temp Pulse Pulse Resp BP BP Pulse Ox 06/08/20 11:46 98.1 F 79 16 143/77 97 06/08/20 05:00 98.1 F 72 16 135/63 98 06/08/20 00:00 16 06/07/20 21:09 98.1 F 87 16 170/78 98 06/07/20 19:44 15 150/76 06/07/20 18:56 87 18 186/72 100 06/07/20 18:44 98.3 F 82 16 186/78 100 06/07/20 18:43 98.3 F 82 16 186/78 98 06/07/20 18:41 98.3 F 82 16 186/78 99 06/07/20 16:30 98.5 F 79 18 134/71 99 06/07/20 16:20 98.5 F 83 18 146/81 96 06/07/20 16:00 98.5 F 84 16 141/85 98 06/07/20 15:50 98.2 F 86 16 142/74 99 Intake and Output 06/07/20 06/08/20 06/08/20 22:59 06:59 14:59 Intake Total 990 240 Balance 990 240 Intake: Intake, IV Titration 80 Amount Sodium Chloride 0.9% 1, 80 000 ml @ 20 mls/hr IV . Q24H [facility] Rx#:[id number] Oral 600 240 Blood Product 310 Rc As-1 Unit 310 [id number] Other: # Voids 1 1 On physical examination, patient appears comfortable in no apparent distress. HEAD: Normocephalic, atraumatic. EYES: No scleral icterus. No conjunctival injection. MOUTH: No lesions, tongue midline. NECK: Trachea midline, no gross abnormalities. CHEST: Clear to auscultation with no wheezing or rhonchi appreciated. HEART: Regular rate and rhythm. ABDOMEN: Soft, nontender to palpation. Bowel sounds are positive. No organomegaly. No guarding or rigidity. EXTREMITIES: Bilateral pedal edema. SKIN: No rashes, no jaundice. NEUROLOGIC: Alert and oriented x3. No focal deficits. Results CBC & Chem 7: 06/09/20 05:56 06/08/20 08:12 Labs: Abnormal Lab Results - Last 24 Hours (Table) 06/07/20 06/07/20 06/08/20 Range/Units 13:20 18:39 08:12 RBC 3.45 L (3.80-5.40) m/uL Hgb 7.3 L (11.4-16.0) gm/dL Hct 26.2 L (34.0-46.0) % MCV 76.1 L (80.0-100.0) fL MCH 21.3 L (25.0-35.0) pg MCHC 28.0 L (31.0-37.0) g/dL RDW 17.0 H (11.5-15.5) % Sodium (137-145) mmol/L Iron 6 L (50-170) ug/dL TIBC 524 H (228-460) ug/dL % Saturation 1.15 L (12.00-45.00) Crossmatch See Detail 10/21/20 Range/Units 08:12 RBC (3.80-5.40) m/uL Hgb (11.4-16.0) gm/dL Hct (34.0-46.0) % MCV (80.0-100.0) fL MCH (25.0-35.0) pg MCHC (31.0-37.0) g/dL RDW (11.5-15.5) % Sodium 136 L (137-145) mmol/L Iron (50-170) ug/dL TIBC (228-460) ug/dL % Saturation (12.00-45.00) Crossmatch Assessment and Plan (1) Iron deficiency anemia Narrative/Plan: 79-year-old female with multiple medical comorbidities who presented to the hospital due to anemia found on outpatient lab work. Patient was found to have a hemoglobin of 6 with iron studies consistent with a severe iron deficiency anemia. She denied any signs or symptoms of GI bleed. Last colonoscopy lindsay roximately 10 years ago. The patient had been taking a significant amount of NSAID therapy with Aleve twice daily for treatment of osteoarthritis. Unclear etiology with differential including gastritis, esophagitis, AVM, peptic ulcer disease, malignancy or other etiology. Current Visit: Yes Status: Acute Code(s): D50.9 - IRON DEFICIENCY ANEMIA, UNSPECIFIED SNOMED Code(s): 84395509 (2) Shortness of breath Current Visit: Yes Status: Acute Code(s): R06.02 - SHORTNESS OF BREATH S NOMED Code(s): 448950948 (3) GERD (gastroesophageal reflux disease) Current Visit: Yes Status: Acute Code(s): K21.9 - GASTRO-ESOPHAGEAL REFLUX DISEASE WITHOUT ESOPHAGITIS SNOMED Code(s): 180323682 Plan: Supportive care Clear liquid diet Bowel prep ordered Continue to monitor hemoglobin and hematocrit and transfuse as needed Nothing by mouth after midnight Iron supplementation ordered Plan for EGD and colonoscopy tomorrow for further evaluation, with all the risks, benefits and possible complications of the procedure described to the patient at length with both her questions answered to her satisfaction Thank you for allowing us to participate in the care of the patient
[2020-06-09] MEDS: PANTOPRAZOLE 40 MG/10 ML VIAL IV SCH (07:58)
[2020-06-09] MEDS: PREGABALIN 50 MG CAP PO SCH ×2 (07:58→20:08)
[2020-06-09] MEDS ORDERED: SODIUM FERRIC GLUCONAT-SUCROSE 125 MG in SODIUM CHLORIDE 0.9% 100 ML IVPB ONE (09:00)
[2020-06-09 09:06] LABS: African American GFR (CKD) 99.8 (60.0-200.0); Albumin 3.7 g/dL (3.80-4.90); Albumin/Globulin Ratio 2.31 (1.60-3.17); Calcium 8.7 mg/dL (8.7-10.3); Globulin 1.6 g/dL (1.6-3.3); Non-African American GFR(CKD) 86.1 (60.0-200.0); Potassium 3.8 mmol/L (3.5-5.5); Total Bilirubin 0.5 mg/dL (0.3-1.2); Total Protein 5.3 g/dL (6.2-8.2)
[2020-06-09] MEDS: LACTATED RINGERS 1,000 ML IV SCH ×2 (10:41→19:27)
[2020-06-09] MEDS: SODIUM CHLORIDE 0.9% 1,000 ML IV SCH (10:53)
[2020-06-09] MEDS ORDERED: IV FLUID CONTINUATION 1,000 ML IV ONE (13:20)
[2020-06-09] MEDS ORDERED: PROPOFOL 10 MG/ML 20 ML VIAL IV ONE (13:20)
[2020-06-09] MEDS ORDERED: LIDOCAINE 1% INJ 10MG/ML (20 ML MDV) ONE (13:20)
--- NOTE | 2020-06-09 14:03 | P.PCN ---
Date of Procedure: 06/09/20 Description of Procedure: Brief history: 79-year-old female with a medical history significant for hypertension, hyperlipidemia, GERD and osteoarthritis who presented to the hospital for evaluation of anemia. The patient had been seen with complaints of increasing shortness of breath and lower extremity edema with blood work significant for a severe iron deficiency anemia with a hemoglobin of 6.0. Currently hemoglobin is 7.3 with iron studies on admission significant for iron 6, saturation of 1.15, TIBC 524, and with a folate of 724 and B12 of 378. On questioning the patient had been using Aleve twice daily for treatment of osteoarthritis. She has cut down the dose from 2 tabs twice daily to 1 tablet twice daily. She denies any signs or symptoms of GI bleeding and stool testing was negative for occult blood, however iron studies suggestive of a severe iron deficiency anemia as stated. Last colonoscopy per her recollection was approximately 10 years ago. No abdominal pain reported. Procedure performed: Esophagogastroduodenoscopy with biopsy Colonoscopy Estimated blood loss: Minimal. Preoperative diagnosis: Iron deficiency anemia Anesthesia: MAC Procedure: After informed consent was obtained from the patient was brought into the endoscopy unit and IV sedation was administered by anesthesia under continuous monitoring. Initially upper endoscopy was done. The Olympus GF 190 video endoscope was inserted into the mouth and esophagus intubated without any difficulty and was gradually advanced into the stomach and duodenum and carefully examined. The bulb and second part of the duodenum appeared normal, with biopsies taken. The scope was then withdrawn into the stomach adequately insufflated with air and upon careful examination the antrum and body, cardia and fundus appeared normal, except for some mild punctate erythema in the antrum and body suggestive of mild gastritis with biopsies taken. The scope was then withdrawn into the esophagus. The GE junction was located at 36 cm to the incisors. It appeared regular with no erythema erosions or ulcerations. Rest of the esophagus appeared normal. Patient tolerated the procedure well. At this time the patient continued to remain sedation. Initial digital rectal examination was normal. Olympus CF 190 video colonoscope was then inserted into the rectum and gradually advanced to the cecum without any difficulty. Careful examination was performed as the scope was gradually being withdrawn. The prep was excellent. The cecum, ascending colon, transverse colon, descending colon, sigmoid colon and rectum appeared normal, the terminal ileum was intubated and also appeared normal. Retroflexion was performed in the rectum and no lesions were noted, low-grade internal hemorrhoids. Patient tolerated the procedure well. Impression: 1. Mild gastritis. Biopsies of the antrum and body and duodenum. 2. Low-grade internal hemorrhoids, otherwise normal-appearing colon from rectum to cecum with normal-appearing terminal ileum. Recommendations: Findings of this examination were discussed with the patient as well as her family. Okay to resume diet. Okay to resume medications. Patient has received IV iron in the hospital and would recommend discharge on oral iron therapy daily. Continue to monitor hemoglobin and hematocrit and if patient remains anemic would recommend video capsule endoscopy in the outpatient setting for further evaluation.
--- NOTE | 2020-06-09 16:57 | P.PN ---
Subjective Progress Note Date: 06/09/20 Edwige Murrieta, is an 79-year-old female who had an outpatient blood test that revealed a hemoglobin of 6.0 patient was told to go to emergency room for further evaluation. Patient stated that she has been having significant shortness of breath over the last 2 weeks, she has been complaining of bilateral lower extremity edema, otherwise she denies any complaints, she has known history of arthritis and uses naproxen twice daily, her last hemoglobin 3 months ago was 11.2 patient was evaluated in the emergency room she was given 1 unit of red blood cell transfusion, gastroenterology consultation was requested for further evaluation. On review of systems there is no fever or chills no headache or dizziness no chest pain, no cough no nausea or vomiting no abdominal pain no diarrhea no blood in the stools no burning with urination no frequency or urgency and no hematuria, no weakness or numbness in any of the extremities no change in vision speech or gait. On 06/08/2020 patient and oriented 3. Patient reports shortness of breath has improved. Patient received 1 unit of PRBCs. Hemoglobin 7.3. Iron studies low. IV iron ordered. 2-D echo ordered. GI services following. At this time patient denies chest pain or shortness breath. Patient denies nausea vomiting diarrhea. Patient denies any urinary burning or frequency. On 06/09/2020 patient was seen and examined on the medical floor she is alert and oriented 3 in no apparent distress there is no fever or chills no headache or dizziness no chest pain no shortness of breath no cough no nausea or vomiting no abdominal pain no diarrhea and no urinary symptoms Objective - Vital Signs Vital signs: Vital Signs Temp 97.5 F L 06/09/20 14:27 Pulse 75 06/09/20 14:27 Resp 17 06/09/20 14:27 BP 140/66 06/09/20 14:27 Pulse Ox 97 06/09/20 14:27 Intake & Output 06/08/20 06/09/20 06/09/20 18:59 06:59 18:59 Intake Total 540 1140 300 Balance 540 1140 300 Intake: IV 200 Intake, IV Titration 240 100 Amount Sodium Chloride 0.9% 1, 240 000 ml @ 20 mls/hr IV . Q24H [facility] Rx#:[id number] Sodium Ferric Gluconat- 100 Sucrose 125 mg In Sodium Chloride 0.9% 100 ml @ 100 mls/hr IVPB ONCE ONE Rx#:[id number] Oral 540 900 Other: Voiding Method Toilet # Voids 2 3 # Bowel Movements 4 - Exam In general patient is alert and oriented 3 HEENT head normocephalic and atraumatic Neck is supple no JVD no goiter no lymphadenopathy Chest exam reveals a few scattered rhonchi no wheezing Cardiac exam reveals regular heart sounds no murmurs Abdomen is soft nontender no organomegaly with normal bowel sounds Extremity exam reveals 2+ edema bilaterally no cyanosis or clubbing Neurological examination reveals no gross focal deficit - Labs CBC & Chem 7: 06/09/20 05:56 06/09/20 05:56 Labs: Abnormal Lab Results - Last 24 Hours (Table) 06/09/20 06/09/20 Range/Units 05:56 05:56 RBC 3.36 L (3.80-5.40) m/uL Hgb 7.0 L (11.4-16.0) gm/dL Hct 25.4 L (34.0-46.0) % MCV 75.8 L (80.0-100.0) fL MCH 21.0 L (25.0-35.0) pg MCHC 27.7 L (31.0-37.0) g/dL RDW 16.8 H (11.5-15.5) % Metamyelocytes # (Man) 0.27 H (0) k/uL Myelocytes # (Manual) 0.05 H (0) k/uL Nucleated RBCs 1 H (0-0) /100 WBC Total Protein 5.3 L (6.2-8.2) g/dL Albumin 3.70 L (3.80-4.90) g/dL Assessment and Plan Plan: : 1. Severe anemia, cause is unclear, 1 unit of red blood cell transfusion ordered in the emergency room. Hemoglobin improving to 7.3 status post 1 unit platelet transfusion. Iron studies low. Patient receiving IV iron, EGD and colonoscopy done today and revealed evidence of mild gastritis otherwise no significant abnormality, possible discharge to home tomorrow 2. Underlying history of hypertension 3. Underlying history of hyperlipidemia 4. Underlying history of osteoarthritis, with history of using naproxen 5. Underlying history of gastroesophageal reflux disease DVT prophylaxis SCDs due to severe anemia. GI prophylaxis Protonix Gastroenterology consultation requested 2-D echo has been ordered Will follow closely
[2020-06-10 06:17] LABS: Anisocytosis Slight; Basophils # (A) 0.1 k/uL (0-0.2); Basophils % (A) 1 %; Eosinophils # (A) 0.3 k/uL (0-0.7); Eosinophils % (A) 5 %; HCT 26.7 % (34.0-46.0); HGB 7.5 gm/dL (11.4-16.0); Hypochromasia Marked; Lymphocytes # (A) 1.1 k/uL (1.0-4.8); Lymphocytes % (A) 15 %; MCH 21.3 pg (25.0-35.0); MCHC 28.1 g/dL (31.0-37.0); MCV 75.9 fL (80.0-100.0); Microcytosis Slight; Monocytes # (A) 0.6 k/uL (0-1.0); Monocytes % (A) 8 %; Neutrophils # (A) 4.9 k/uL (1.3-7.7); Neutrophils % (A) 69 %; Platelet Count 392 k/uL (150-450); Poikilocytosis Moderate; RBC 3.52 m/uL (3.80-5.40); RDW 18.2 % (11.5-15.5); WBC 7.1 k/uL (3.8-10.6)
[2020-06-10 07:52] VITALS: BP 126/66; PULSE 79; RESP 16; TEMP 97.7
[2020-06-10] MEDS ORDERED: SODIUM FERRIC GLUCONAT-SUCROSE 125 MG in SODIUM CHLORIDE 0.9% 100 ML IVPB ONE (08:00)
[2020-06-10] MEDS: PREGABALIN 50 MG CAP PO SCH (08:39)
[2020-06-10 09:12] LABS: African American GFR (CKD) 80.7 (60.0-200.0); Albumin/Globulin Ratio 2.22 (1.60-3.17); Anion Gap 7.8 mmol/L (4.00-12.00); BUN/Creat Ratio 16.25 Ratio (12.00-20.00); Calcium 9.1 mg/dL (8.7-10.3); Carbon Dioxide 28.2 mmol/L (21.6-31.8); Globulin 1.8 g/dL (1.6-3.3); Non-African American GFR(CKD) 69.6 (60.0-200.0); Potassium 4.2 mmol/L (3.5-5.5); Total Bilirubin 0.5 mg/dL (0.3-1.2); Total Protein 5.8 g/dL (6.2-8.2)
--- NOTE | 2020-06-10 09:35 | P.DS ---
Providers Date of admission: 06/07/20 14:29 Expected date of discharge: 06/10/20 Attending physician: Ly Pineda Consults: 06/07/20 14:26 Consult Physician Routine Consulting Provider: Amelia Platt Consult Reason/Comments: anemia, poss GI bleed Do you want consulting provider notified?: Yes Primary care physician: Ly [facility] Course: Diagnoses on discharge: 1. Severe anemia, cause is unclear, 1 unit of red blood cell transfusion ordered in the emergency room. Hemoglobin improving to 7.3 status post 1 unit platelet transfusion. Iron studies low. Patient receiving IV iron, EGD and colonoscopy done today and revealed evidence of mild gastritis otherwise no significant abnormality. 2. Underlying history of hypertension 3. Underlying history of hyperlipidemia 4. Underlying history of osteoarthritis, with history of using naproxen 5. Underlying history of gastroesophageal reflux disease Hospital course: Edwige Murrieta, is an 79-year-old female who had an outpatient blood test that revealed a hemoglobin of 6.0 patient was told to go to emergency room for further evaluation. Patient stated that she has been having significant shortness of breath over the last 2 weeks, she has been complaining of bilateral lower extremity edema, otherwise she denies any complaints, she has known history of arthritis and uses naproxen twice daily, her last hemoglobin 3 months ago was 11.2 patient was evaluated in the emergency room she was given 1 unit of red blood cell transfusion, gastroenterology consultation was requested for further evaluation. On review of systems there is no fever or chills no headache or dizziness no chest pain, no cough no nausea or vomiting no abdominal pain no diarrhea no blood in the stools no burning with urination no frequency or urgency and no hematuria, no weakness or numbness in any of the extremities no change in vision speech or gait. On 06/08/2020 patient and oriented 3. Patient reports shortness of breath has improved. Patient received 1 unit of PRBCs. Hemoglobin 7.3. Iron studies low. IV iron ordered. 2-D echo ordered. GI services following. At this time patient denies chest pain or shortness breath. Patient denies nausea vomiting diarrhea. Patient denies any urinary burning or frequency. On 06/09/2020 patient was seen and examined on the medical floor she is alert and oriented 3 in no apparent distress there is no fever or chills no headache or dizziness no chest pain no shortness of breath no cough no nausea or vomiting no abdominal pain no diarrhea and no urinary symptoms On 06/10/2020 patient was seen and examined on the medical floor she is alert and oriented 3 in no distress there is no fever or chills no headache or dizziness no chest pain no shortness of breath no cough no nausea or vomiting no abdominal pain no diarrhea no blood in the stools no burning with urination no frequency or urgency and no hematuria. Patient is stable and asymptomatic at this time results of EGD and colonoscopy discussed with patient she was told to discontinue taking naproxen and use Tylenol instead for arthritis pain she was given a prescription for Protonix 40 mg once daily and iron sulfate 325 mg once daily she will be followed in our office within 1 week Patient Condition at Discharge: Fair Plan - Discharge Summary New Discharge Prescriptions: New Pantoprazole Sodium [Protonix] 40 mg PO AC-BRKFST 30 Days #30 tablet.dr Continue hydroCHLOROthiazide 25 mg PO DAILY Pregabalin [Lyrica] 50 mg PO BID #60 cap Vitamin C/Biotin [Hair, Skin and Nails] 1 tab PO QAM Mv-Min/Folic/Vit K/Lut/[id number] [Alive Women's 50 Plus Tablet] 1 tab PO QAM Loratadine [Alavert] 10 mg PO HS PRN PRN Reason: Congestion Discontinued Naproxen Sodium [Aleve] 440 mg PO BID Discharge Medication List hydroCHLOROthiazide 25 mg PO DAILY 08/27/14 [History] Pregabalin [Lyrica] 50 mg PO BID #60 cap 06/11/19 [Rx] Loratadine [Alavert] 10 mg PO HS PRN 06/07/20 [History] Mv-Min/Folic/Vit K/Lut/Aydr759 [Alive Women's 50 Plus Tablet] 1 tab PO QAM 06/07/20 [History] Vitamin C/Biotin [Hair, Skin and Nails] 1 tab PO QAM 06/07/20 [History] Pantoprazole Sodium [Protonix] 40 mg PO AC-BRKFST 30 Days #30 tablet. 06/10/20 [Rx] Follow up Appointment(s)/Referral(s): Ly Pineda MD [Primary Care Provider] - 1-2 days
[2020-06-10] MEDS: PANTOPRAZOLE 40 MG/10 ML VIAL IV SCH (10:52)
== END 2020-06-10 12:15 | disposition home or self-care (01) | DRG 812 ==
LOC: EC 12:41 → 6NMEDSUR 14:29
PROVIDERS: ADMIT Internal Medicine; ATTEND Internal Medicine
PROC: 0DB78ZX Excision of Stomach, Pylorus, Via Natural or Artificial Opening Endoscopic, Diagnostic (ICD-10-PCS; principal; 2020-06-09 13:40)
PROC: 0DJD8ZZ Inspection of Lower Intestinal Tract, Via Natural or Artificial Opening Endoscopic (ICD-10-PCS; principal; 2020-06-09 13:40)
PROC: 30233N1 Transfusion of Nonautologous Red Blood Cells into Peripheral Vein, Percutaneous Approach (ICD-10-PCS; principal; 2020-06-09 13:40)
PROC: 0DB98ZX Excision of Duodenum, Via Natural or Artificial Opening Endoscopic, Diagnostic (ICD-10-PCS; principal; 2020-06-09 13:40)
DX: D50.9 Iron deficiency anemia, unspecified (principal); K21.9 Gastro-esophageal reflux disease without esophagitis; E78.5 Hyperlipidemia, unspecified; F41.9 Anxiety disorder, unspecified; I10 Essential (primary) hypertension; Z96.642 Presence of left artificial hip joint; M19.90 Unspecified osteoarthritis, unspecified site; K64.8 Other hemorrhoids; K29.70 Gastritis, unspecified, without bleeding; D75.89 Other specified diseases of blood and blood-forming organs; Z79.899 Other long term (current) drug therapy; Z90.710 Acquired absence of both cervix and uterus; Z91.09 Other allergy status, other than to drugs and biological substances; Z90.49 Acquired absence of other specified parts of digestive tract; Z90.89 Acquired absence of other organs; Z98.890 Other specified postprocedural states; Z98.42 Cataract extraction status, left eye; Z98.41 Cataract extraction status, right eye
CPT/HCPCS: 36415; 36430; 43239; 45378; 80048; 80053; 82272; 82607; 82746; 83540; 83550; 83880; 84484; 85025; 85027; 85610; 85730; 86850; 86900; 86901; 86920; 88305; 93005; 93306; 99285

== ENCOUNTER → 2020-06-07 | Outpatient (CLI) | payer MEDICARE, BC ==
[2020-06-07 11:23] LABS: HCT 22.1 % (34.0-46.0); Hypochromasia Marked; MCH 20.4 pg (25.0-35.0); MCHC 27.1 g/dL (31.0-37.0); MCV 75.1 fL (80.0-100.0); Mean Platelet Volume 6.5; Microcytosis Slight; Platelet Count 403 k/uL (150-450); Poikilocytosis Slight; RBC 2.94 m/uL (3.80-5.40); RDW 15.7 % (11.5-15.5); WBC 5.1 k/uL (3.8-10.6)
[2020-06-07 14:55] LABS: ALT 28 U/L (8-44); AST 29 U/L (13-35); African American GFR (CKD) 80.7 (60.0-200.0); Albumin/Globulin Ratio 2.11 (1.60-3.17); Alkaline Phosphatase 78 U/L (41-126); Calcium 9.2 mg/dL (8.7-10.3); Carbon Dioxide 28.4 mmol/L (21.6-31.8); Chloride 102 mmol/L (96-109); Chol/HDL Ratio 2.38; Cholesterol 152 mg/dL (0-200); Globulin 1.9 g/dL (1.6-3.3); Glucose 105 mg/dL (70-110); Non-African American GFR(CKD) 69.6 (60.0-200.0); Potassium 4.3 mmol/L (3.5-5.5); Sodium 138 mmol/L (135-145); Total Bilirubin 0.6 mg/dL (0.2-1.2); Total Protein 5.9 g/dL (6.2-8.2); Triglycerides <50.0 mg/dL (0.0-149.0)
== END | disposition home or self-care (01) ==
LOC: LABWHC1 09:42
PROVIDERS: ATTEND Internal Medicine
DX: K21.9 Gastro-esophageal reflux disease without esophagitis (principal); I10 Essential (primary) hypertension; E78.5 Hyperlipidemia, unspecified
CPT/HCPCS: 36415; 80053; 80061; 84443; 85027

== ENCOUNTER 2020-06-11 16:01 | Emergency (ER) | payer MEDICARE, BC ==
[2020-06-11] MEDS ORDERED: CEPHALEXIN 500 MG CAP PO STA (16:15)
--- NOTE | 2020-06-11 16:22 | ED ---
General Adult HPI - General Chief complaint: Skin/Abscess/Foreign Body Stated complaint: swelling at puncture site Time Seen by Provider: 06/11/20 16:09 Source: patient, RN notes reviewed, old records reviewed Mode of arrival: ambulatory Limitations: no limitations - History of Present Illness Initial comments: 79-year-old female presented for evaluation of pain and redness at intravenous puncture site. Patient was admitted to the hospital for anemia she was transfused one unit of blood through a left AC IV. She has noted some redness, pain and swelling at this site. No fever. She was instructed by her pharmacist to present for evaluation. No additional complaints. Not currently on any antibiotics. - Related Data Home Medications Medication Instructions Recorded Confirmed hydroCHLOROthiazide 25 mg PO DAILY 08/27/14 06/07/20 Loratadine [Alavert] 10 mg PO HS PRN 06/07/20 06/07/20 Mv-Min/Folic/Vit K/Lut/[id number] 1 tab PO QAM 06/07/20 06/07/20 [Alive Women's 50 Plus Tablet] Vitamin C/Biotin [Hair, Skin and 1 tab PO QAM 06/07/20 06/07/20 Nails] Previous Rx's Medication Instructions Recorded Pregabalin [Lyrica] 50 mg PO BID #60 cap 06/11/19 Pantoprazole Sodium [Protonix] 40 mg PO AC-BRKFST 30 Days #30 06/10/20 tablet. Cephalexin [Keflex] 500 mg PO Q6HR 10 Days #40 cap 06/11/20 Allergies Allergy/AdvReac Type Severity Reaction Status Date / Time adhesive Allergy Rash/Hives Verified 06/11/20 16:07 METAL Allergy Rash/Hives Uncoded 06/11/20 16:07 Review of Systems ROS Statement: Those systems with pertinent positive or pertinent negative responses have been documented in the HPI. ROS Other: All systems not noted in ROS Statement are negative. Past Medical History Past Medical History: GERD/Reflux, Hyperlipidemia, Hypertension, Osteoarthritis (OA), Vascular Disorder Additional Past Medical History / Comment(s): Varicose veins, History of Any Multi-Drug Resistant Organisms: None Reported Past Surgical History: Adenoidectomy, Appendectomy, Breast Surgery, Cholecystectomy, Hysterectomy, Joint Replacement, Tonsillectomy Additional Past Surgical History / Comment(s): ANUPAM CARPAL TUNNEL, BREAST AUGMENTATION AND THEN REMOVAL of implants, ANUPAM LARGE TOE surgery, left hip replacement, anupam cataracts, vitrectomy left eye. Eyelid surgery-bilateral Past Anesthesia/Blood Transfusion Reactions: Postoperative Nausea & Vomiting (PONV) Additional Past Anesthesia/Blood Transfusion Reaction / Comment(s): SEVERE PONV, TONGUE SWELLED POST OP x1 Past Psychological History: Anxiety Smoking Status: Never smoker Past Alcohol Use History: None Reported Past Drug Use History: None Reported - Past Family History Mother Family Medical History: No Reported History Father Additional Family Medical History / Comment(s): CIRRHOIS OF THE LIVER General Exam Limitations: no limitations General appearance: alert, in no apparent distress Head exam: Present: atraumatic, normocephalic Eye exam: Present: normal appearance, PERRL ENT exam: Present: normal exam Neck exam: Present: normal inspection. Absent: tenderness, meningismus Respiratory exam: Present: normal lung sounds bilaterally. Absent: respiratory distress Cardiovascular Exam: Present: regular rate, normal rhythm GI/Abdominal exam: Present: soft. Absent: distended, tenderness, guarding Extremities exam: Present: normal capillary refill, other (left upper extremity, there is some warmth, erythema and induration surrounding a previous left antecubital venous puncture site. There is no fluctuance or drainable abscess. Minimal surrounding cellulitis.) Neurological exam: Present: alert, oriented X3, CN II-XII intact, normal gait. Absent: motor sensory deficit Psychiatric exam: Present: normal affect, normal mood Skin exam: Present: warm, dry, erythema (as above) Course Vital Signs 06/11/20 16:04 Temperature 97.9 F Pulse Rate 81 Respiratory 18 Rate Blood Pressure 156/86 O2 Sat by Pulse 99 Oximetry Medical Decision Making - Medical Decision Making ultrasound performed, shows superficial thrombus, no DVT. Patient patient has was started on Keflex, she will apply warm compresses, she will follow-up with her primary care physician and return with worsening swelling, worsening signs of infection or any new concerns. Disposition Clinical Impression: Superficial thrombophlebitis of arm Disposition: HOME SELF-CARE Condition: Good Instructions (If sedation given, give patient instructions): Superficial Thrombophlebitis (ED) Prescriptions: Cephalexin [Keflex] 500 mg PO Q6HR 10 Days #40 cap Is patient prescribed a controlled substance at d/c from ED?: No Referrals: Ly Pineda MD [Primary Care Provider] - 1-2 days Time of Disposition: 17:17
--- NOTE | 2020-06-11 17:03 | US ---
EXAMINATION TYPE: US venous doppler duplex UE LT DATE OF EXAM: 06/11/2020 COMPARISON: NONE CLINICAL HISTORY: dvt. Patient has an IV recently in the left arm. swelling and redness SIDE PERFORMED: Left Left Arm: Negative for DVT. Positive for SVT at the area of redness and swelling left basilic vein IMPRESSION: No evidence of deep vein thrombosis in the left arm. There is some superficial vein thrombosis.
[2020-06-11 17:36] VITALS: BP 148/87; PULSE 82; RESP 16; TEMP 97.8
== END 2020-06-11 17:35 | disposition home or self-care (01) ==
LOC: EC 16:01
DX: I80.8 Phlebitis and thrombophlebitis of other sites (principal); I10 Essential (primary) hypertension; Z79.899 Other long term (current) drug therapy; Z98.42 Cataract extraction status, left eye; Z98.41 Cataract extraction status, right eye; Z91.048 Other nonmedicinal substance allergy status; Z96.642 Presence of left artificial hip joint
CPT/HCPCS: 99284

== ENCOUNTER → 2020-07-05 | Outpatient (CLI) | payer MEDICARE, BC ==
[2020-07-05 11:01] LABS: Anisocytosis Slight; HCT 34.1 % (34.0-46.0); Hypochromasia Marked; MCH 21.8 pg (25.0-35.0); Mean Platelet Volume 6.1; Microcytosis Moderate; Platelet Count 350 k/uL (150-450); RBC 4.55 m/uL (3.80-5.40); RDW 18.7 % (11.5-15.5); WBC 4.9 k/uL (3.8-10.6)
[2020-07-05 11:09] LABS: HGB 9.9 gm/dL (11.4-16.0)
[2020-07-05 15:08] LABS: African American GFR (CKD) 80.7 (60.0-200.0); Albumin 4.2 g/dL (3.80-4.90); Albumin/Globulin Ratio 1.91 (1.60-3.17); Anion Gap 5.8 mmol/L (4.00-12.00); BUN/Creat Ratio 17.5 Ratio (12.00-20.00); Calcium 9.9 mg/dL (8.7-10.3); Carbon Dioxide 32.2 mmol/L (21.6-31.8); Globulin 2.2 g/dL (1.6-3.3); Non-African American GFR(CKD) 69.6 (60.0-200.0); Potassium 4.1 mmol/L (3.5-5.5); Total Bilirubin 0.5 mg/dL (0.2-1.2); Total Protein 6.4 g/dL (6.2-8.2)
== END | disposition home or self-care (01) ==
LOC: LABWHC1 08:56
PROVIDERS: ATTEND Internal Medicine
DX: I50.9 Heart failure, unspecified (principal); D64.9 Anemia, unspecified
CPT/HCPCS: 36415; 80053; 85027

== ENCOUNTER → 2020-10-18 | Outpatient (CLI) | payer MEDICARE, BC ==
[2020-10-18 15:10] LABS: HCT 41.5 % (37.2-46.3); HGB 12.3 g/dL (12.0-15.0); MCH 23.8 pg (27.0-32.0); MCHC 29.6 g/dL (32.0-37.0); MCV 80.4 fL (80.0-97.0); Mean Platelet Volume 9.1 fL (9.5-12.2); Platelet Count 336 X 10*3/uL (140-440); RBC 5.16 X 10*6/uL (4.10-5.20); RDW 19.2 % (11.5-14.5); WBC 4.95 X 10*3/uL (4.50-10.00)
[2020-10-18 15:41] LABS: African American GFR (CKD) 69.5 (60.0-200.0); Albumin 4.4 g/dL (3.80-4.90); Albumin/Globulin Ratio 1.83 (1.60-3.17); Anion Gap 4.7 mmol/L (4.00-12.00); BUN/Creat Ratio 13.33 Ratio (12.00-20.00); Calcium 9.5 mg/dL (8.7-10.3); Carbon Dioxide 34.3 mmol/L (21.6-31.8); Chol/HDL Ratio 3.1; Globulin 2.4 g/dL (1.6-3.3); LDL Cholesterol,Calculated 117.6 mg/dL (0.0-131.0); Potassium 4.5 mmol/L (3.5-5.5); Total Bilirubin 0.5 mg/dL (0.2-1.2); Total Protein 6.8 g/dL (6.2-8.2); VLDL Calculation 25.4 mg/dL (5.00-40.00)
== END | disposition home or self-care (01) ==
LOC: LABWHC1 09:50
PROVIDERS: ATTEND Internal Medicine
DX: D64.9 Anemia, unspecified (principal); M19.90 Unspecified osteoarthritis, unspecified site; I10 Essential (primary) hypertension
CPT/HCPCS: 36415; 80053; 80061; 84443; 85027

== ENCOUNTER → 2021-02-21 | Outpatient (CLI) | payer MEDICARE, BC | END | disposition home or self-care (01) | CPT/HCPCS: 36415; 80053; 80061; 84443; 85027 ==

== ENCOUNTER → 2021-05-23 | Outpatient (CLI) | payer MEDICARE, BC ==
[2021-05-23 19:09] LABS: HCT 46.3 % (37.2-46.3); HGB 15.1 g/dL (12.0-15.0); MCH 31.7 pg (27.0-32.0); MCHC 32.6 g/dL (32.0-37.0); MCV 97.1 fL (80.0-97.0); Mean Platelet Volume 9.2 fL (9.5-12.2); Platelet Count 321 X 10*3/uL (140-440); RBC 4.77 X 10*6/uL (4.10-5.20); RDW 11.9 % (11.5-14.5); WBC 5.41 X 10*3/uL (4.50-10.00)
[2021-05-24 03:01] LABS: African American GFR (CKD) 101.4 (60.0-200.0); Albumin 4.4 g/dL (3.8-4.9); Albumin/Globulin Ratio 1.74 (1.60-3.17); Anion Gap 15.3 mmol/L (4.00-12.00); BUN/Creat Ratio 20.57 Ratio (12.00-20.00); Blood Urea Nitrogen 11.5 mg/dL (9.0-27.0); Calcium 9.9 mg/dL (8.7-10.3); Carbon Dioxide 25.9 mmol/L (21.6-31.8); Chol/HDL Ratio 3.59 Ratio; Globulin 2.6 g/dL (1.6-3.3); Non-African American GFR(CKD) 87.5 (60.0-200.0); Potassium 4.2 mmol/L (3.5-5.5); Total Bilirubin 0.7 mg/dL (0.30-1.20)
== END | disposition home or self-care (01) ==
LOC: LABWHC1 10:04
PROVIDERS: ATTEND Internal Medicine
DX: I10 Essential (primary) hypertension (principal); E78.2 Mixed hyperlipidemia
CPT/HCPCS: 36415; 80053; 80061; 84443; 85027

== ENCOUNTER → 2021-08-08 | Outpatient (CLI) | payer MEDICARE, BC ==
[2021-08-08 14:43] LABS: HCT 44.7 % (37.2-46.3); HGB 14.3 g/dL (12.0-15.0); MCH 31.4 pg (27.0-32.0); Mean Platelet Volume 9.1 fL (9.5-12.2); Platelet Count 295 X 10*3/uL (140-440); RBC 4.56 X 10*6/uL (4.10-5.20); RDW 11.7 % (11.5-14.5); WBC 4.47 X 10*3/uL (4.50-10.00)
[2021-08-08 16:09] LABS: ALT 24 U/L (8-44); AST 23 U/L (13-35); African American GFR (CKD) 78.9 (60.0-200.0); Albumin 4.3 g/dL (3.8-4.9); Albumin/Globulin Ratio 1.88 (1.60-3.17); Alkaline Phosphatase 75 U/L (41-126); BUN/Creat Ratio 12.59 Ratio (12.00-20.00); Blood Urea Nitrogen 10.2 mg/dL (9.0-27.0); Calcium 9.7 mg/dL (8.7-10.3); Carbon Dioxide 28.3 mmol/L (20.0-27.5); Chloride 100 mmol/L (96-109); Globulin 2.3 g/dL (1.6-3.3); Glucose 92 mg/dL (70-110); LDL Cholesterol,Calculated 73.5 mg/dL (0.0-131.0); Non-African American GFR(CKD) 68.1 (60.0-200.0); Potassium 4.2 mmol/L (3.5-5.5); Sodium 142 mmol/L (135-145); Total Protein 6.6 g/dL (6.2-8.2); VLDL Calculation 18.56 mg/dL (5.00-40.00)
== END | disposition home or self-care (01) ==
LOC: LABWHC1 09:46
PROVIDERS: ATTEND Internal Medicine
DX: I10 Essential (primary) hypertension (principal); E78.5 Hyperlipidemia, unspecified; E55.9 Vitamin D deficiency, unspecified
CPT/HCPCS: 36415; 80053; 80061; 82306; 84443; 85027

== ENCOUNTER → 2021-12-05 | Outpatient (CLI) | payer MEDICARE, BC ==
[2021-12-05 19:15] LABS: HGB 14.5 g/dL (12.0-15.0); MCH 31.3 pg (27.0-32.0); MCHC 32.2 g/dL (32.0-37.0); MCV 97.2 fL (80.0-97.0); NRBC Per 100 WBC 0 /100 WBCS (0.0-0.0); Platelet Count 319 X 10*3/uL (140-440); RBC 4.63 X 10*6/uL (4.10-5.20); RDW 11.9 % (11.5-14.5); WBC 4.97 X 10*3/uL (4.50-10.00)
[2021-12-05 19:42] LABS: ALT 19 U/L (8-44); AST 22 U/L (13-35); African American GFR (CKD) 87.2 (60.0-200.0); Albumin 4.5 g/dL (3.8-4.9); Albumin/Globulin Ratio 1.85 (1.60-3.17); Alkaline Phosphatase 74 U/L (41-126); BUN/Creat Ratio 14.15 Ratio (12.00-20.00); Blood Urea Nitrogen 10.5 mg/dL (9.0-27.0); Calcium 9.9 mg/dL (8.7-10.3); Carbon Dioxide 29.6 mmol/L (20.0-27.5); Chloride 97 mmol/L (96-109); Chol/HDL Ratio 2.45 Ratio; Globulin 2.4 g/dL (1.6-3.3); Glucose 101 mg/dL (70-110); LDL Cholesterol,Calculated 91.9 mg/dL (0.0-131.0); Non-African American GFR(CKD) 75.2 (60.0-200.0); Potassium 4.1 mmol/L (3.5-5.5); Sodium 137 mmol/L (135-145); Total Protein 6.9 g/dL (6.2-8.2)
== END | disposition home or self-care (01) ==
LOC: LABWHC1 09:22
PROVIDERS: ATTEND Internal Medicine
DX: I10 Essential (primary) hypertension (principal); E78.5 Hyperlipidemia, unspecified; K21.9 Gastro-esophageal reflux disease without esophagitis; M19.90 Unspecified osteoarthritis, unspecified site
CPT/HCPCS: 36415; 80053; 80061; 84443; 85027

== ENCOUNTER → 2022-01-23 | Outpatient (CLI) | payer MEDICARE, BC ==
--- NOTE | 2022-01-23 12:05 | US ---
EXAMINATION TYPE: US carotid duplex BILAT DATE OF EXAM: 01/23/2022 COMPARISON: NONE CLINICAL HISTORY: R079 CHEST PAIN, UNSPECIFIED. EXAM MEASUREMENTS: RIGHT: Peak Systolic Velocity (PSV) cm/sec ----- Right CCA: 63.3 ----- Right ICA: 75.6 ----- Right ECA: 79.8 ICA/CCA ratio: 1.2 RIGHT: End Diastole cm/sec ----- Right CCA: 14.5 ----- Right ICA: 21.5 ----- Right ECA: 0.0 LEFT: Peak Systolic Velocity (PSV) cm/sec ----- Left CCA: 61.6 ----- Left ICA: 67.7 ----- Left ECA: 0.0 ICA/CCA ratio: 1.1 LEFT: End Diastole cm/sec ----- Left CCA: 12.7 ----- Left ICA: 23.2 ----- Left ECA: 0.0 VERTEBRALS (direction of flow): Right Vertebral: Antegrade Left Vertebral: Antegrade Rhythm: Normal No significant stenosis seen. No elevated velocities. Tortuous vessels noted on the left. IMPRESSION: 1. No significant hemodynamic stenosis as visualized Criteria for Assigning % of Stenosis / Diameter reduction (Estimation based on the indirect measurements of the internal carotid artery velocities (ICA PSV). 1. Normal (no stenosis)=ICA PSV < 125 cm/s: ratio < 2.0: ICA EDV<40 cm/s. 2. Less than 50% stenosis=ICA PSV < 125 cm/s: ratio < 2.0: ICA EDV<40 cm/s. 3. 50 to 69% stenosis=ICA PSV of 125 to 230 cm/s: ration 2.0 ? 4.0: ICA EDV 40-100 cm/s. 4. Greater than 70% stenosis to near occlusion= ICA PSV > 230 cm/s: ratio > 4.0: ICA EDV > 100 cm/s. 5. Near occlusion= ICA PSV velocities may be low or undetectable: variable ratio and ICA EDV. 6. Total occlusion=unable to detect flow.
--- NOTE | 2022-01-23 12:05 | CA ---
Transthoracic Echo Report Name: Edwige Murrieta Age: 81 Gender: F : 1940 Exam Date: 01/23/2022 11:12 Exam Location: [facility] Ht (in): 60 Wt (lb): 163 Ordering Physician: Ly Pineda MD Attending/Referring Phys: Simonizer Ana Maria Spangler RDCS Procedure CPT: Indications: R07.9 CHEST PAIN, UNSPECIFIED Cardiac Hx: Technical Quality: Good Contrast 1: Total Dose (mL): Contrast 2: Total Dose (mL): MEASUREMENTS (Male / Female) Normal Values 2D ECHO LV Diastolic Diameter PLAX 3.1 cm 4.2 - 5.9 / 3.9 - 5.3 cm LV Systolic Diameter PLAX 2.4 cm IVS Diastolic Thickness 1.1 cm 0.6 - 1.0 / 0.6 - 0.9 cm LVPW Diastolic Thickness 1.2 cm 0.6 - 1.0 / 0.6 - 0.9 cm LV Relative Wall Thickness 0.7 RV Internal Dim ED PLAX 2.6 cm LA Systolic Diameter LX 3.0 cm 3.0 - 4.0 / 2.7 - 3.8 cm LA Volume 31.0 cm??? 18 - 58 / 22 - 52 cm??? M-MODE Aortic Root Diameter MM 2.9 cm MV E Point Septal Separation 0.2 cm AV Cusp Separation MM 1.9 cm DOPPLER AV Peak Velocity 155.3 cm/s AV Peak Gradient 9.6 mmHg AI Peak Velocity 386.2 cm/s AI Peak Gradient 59.7 mmHg AI Pressure Half Time 604.7 ms MV Area PHT 3.3 cm??? Mitral E Point Velocity 83.1 cm/s Mitral A Point Velocity 99.3 cm/s Mitral E to A Ratio 0.8 MV Deceleration Time 227.8 ms MV E' Velocity 4.2 cm/s Mitral E to MV E' Ratio 19.7 FINDINGS Left Ventricle Left ventricular ejection fraction is estimated at 60-65 %. Left ventricular cavity size normal. Borderline left ventricular hypertrophy. Right Ventricle Normal right ventricular size and function. Unable to estimate the right ventricular systolic pressure. Right Atrium Normal right atrial size. Left Atrium Normal left atrial size. No evidence for an atrial septal defect. Mitral Valve Mitral valve thickened. No mitral stenosis, regurgitation or prolapse. Mitral annular calcification. Aortic Valve Trileaflet aortic valve. Focal thickening of the aortic valve cusps. Mild aortic regurgitation. Tricuspid Valve Structurally normal tricuspid valve. No tricuspid stenosis, regurgitation or prolapse. Pulmonic Valve Trace pulmonic regurgitation. Pericardium No pericardial effusion. Aorta Normal size aortic root and proximal ascending aorta. CONCLUSIONS #1. Normal left ventricle size and function with borderline hypertrophy #2. Mild aortic regurgitation #3. Mitral valve calcification Previewed by: Dr. Brian Taylor MD (Electronically Signed) Final Date: 23 January 2022 12:04
== END | disposition home or self-care (01) ==
LOC: RADECHMAIN 10:36
PROVIDERS: ATTEND Internal Medicine
DX: I08.0 Rheumatic disorders of both mitral and aortic valves (principal)
CPT/HCPCS: 93306; 93880

== ENCOUNTER → 2022-03-20 | Outpatient (CLI) | payer MEDICARE, BC ==
[2022-03-20 14:33] LABS: HCT 45.2 % (37.2-46.3); HGB 14.2 g/dL (12.0-15.0); MCH 29.5 pg (27.0-32.0); MCHC 31.4 g/dL (32.0-37.0); Mean Platelet Volume 9.1 fL (9.5-12.2); NRBC Per 100 WBC 0 /100 WBCS (0.0-0.0); Platelet Count 311 X 10*3/uL (140-440); RBC 4.81 X 10*6/uL (4.10-5.20); RDW 11.9 % (11.5-14.5); WBC 5.78 X 10*3/uL (4.50-10.00)
[2022-03-20 15:01] LABS: ALT 25 U/L (8-44); AST 25 U/L (13-35); African American GFR (CKD) 78.4 (60.0-200.0); Albumin 4.2 g/dL (3.8-4.9); Albumin/Globulin Ratio 1.59 (1.60-3.17); Alkaline Phosphatase 78 U/L (41-126); BUN/Creat Ratio 12.72 Ratio (12.00-20.00); Blood Urea Nitrogen 10.3 mg/dL (9.0-27.0); Calcium 9.6 mg/dL (8.7-10.3); Carbon Dioxide 31.9 mmol/L (20.0-27.5); Chloride 99 mmol/L (96-109); Chol/HDL Ratio 2.54 Ratio; Globulin 2.7 g/dL (1.6-3.3); Glucose 103 mg/dL (70-110); LDL Cholesterol,Calculated 74.1 mg/dL (0.0-131.0); Non-African American GFR(CKD) 67.6 (60.0-200.0); Potassium 3.8 mmol/L (3.5-5.5); Sodium 142 mmol/L (135-145); Total Protein 6.9 g/dL (6.2-8.2)
== END | disposition home or self-care (01) ==
LOC: LABWHC1 09:50
PROVIDERS: ATTEND Internal Medicine
DX: I10 Essential (primary) hypertension (principal); E78.5 Hyperlipidemia, unspecified
CPT/HCPCS: 36415; 80053; 80061; 84443; 85027

== ENCOUNTER → 2022-06-05 | Outpatient (CLI) | payer MEDICARE, BC ==
[2022-06-05 14:21] LABS: HCT 44.6 % (37.2-46.3); HGB 14.9 g/dL (12.0-15.0); MCH 30.7 pg (27.0-32.0); MCHC 33.4 g/dL (32.0-37.0); MCV 91.8 fL (80.0-97.0); NRBC Per 100 WBC 0 /100 WBCS (0.0-0.0); Platelet Count 311 X 10*3/uL (140-440); RBC 4.86 X 10*6/uL (4.10-5.20); RDW 12.1 % (11.5-14.5); WBC 4.84 X 10*3/uL (4.50-10.00)
[2022-06-05 14:42] LABS: ALT 17 U/L (8-44); AST 26 U/L (13-35); African American GFR (CKD) 75.7 (60.0-200.0); Albumin 4.5 g/dL (3.8-4.9); Albumin/Globulin Ratio 1.56 (1.60-3.17); Alkaline Phosphatase 71 U/L (41-126); BUN/Creat Ratio 21.46 Ratio (12.00-20.00); Blood Urea Nitrogen 17.9 mg/dL (9.0-27.0); Calcium 9.7 mg/dL (8.7-10.3); Chloride 99 mmol/L (96-109); Chol/HDL Ratio 2.11 Ratio; Globulin 2.9 g/dL (1.6-3.3); Glucose 92 mg/dL (70-110); LDL Cholesterol,Calculated 80.6 mg/dL (0.0-131.0); Non-African American GFR(CKD) 65.3 (60.0-200.0); Potassium 4.2 mmol/L (3.5-5.5); Sodium 139 mmol/L (135-145); Total Protein 7.3 g/dL (6.2-8.2); VLDL Calculation 16.28 mg/dL (5.00-40.00)
== END | disposition home or self-care (01) ==
LOC: LABWHC1 09:46
PROVIDERS: ATTEND Internal Medicine
DX: I10 Essential (primary) hypertension (principal); E78.5 Hyperlipidemia, unspecified
CPT/HCPCS: 36415; 80053; 80061; 84443; 85027

== ENCOUNTER → 2023-01-01 | Outpatient (CLI) | payer MEDICARE, BC ==
[2023-01-01 16:24] LABS: HGB 13.6 g/dL (12.0-15.0); MCH 29.6 pg (27.0-32.0); MCHC 30.9 g/dL (32.0-37.0); MCV 95.9 fL (80.0-97.0); Mean Platelet Volume 9.1 fL (9.5-12.2); NRBC Per 100 WBC 0 /100 WBCS (0.0-0.0); Platelet Count 275 X 10*3/uL (140-440); RBC 4.59 X 10*6/uL (4.10-5.20); RDW 12.3 % (11.5-14.5); WBC 4.39 X 10*3/uL (4.50-10.00)
[2023-01-01 16:54] LABS: ALT 19 U/L (8-44); AST 23 U/L (13-35); African American GFR (CKD) 74.4 (60.0-200.0); Albumin 4.2 g/dL (3.8-4.9); Albumin/Globulin Ratio 1.88 (1.60-3.17); Alkaline Phosphatase 69 U/L (41-126); BUN/Creat Ratio 16.77 Ratio (12.00-20.00); Blood Urea Nitrogen 14.1 mg/dL (9.0-27.0); Calcium 9.8 mg/dL (8.7-10.3); Carbon Dioxide 30.3 mmol/L (20.0-27.5); Chloride 103 mmol/L (96-109); Chol/HDL Ratio 2.39 Ratio; Globulin 2.2 g/dL (1.6-3.3); Glucose 90 mg/dL (70-110); LDL Cholesterol,Calculated 93.3 mg/dL (0.0-131.0); Non-African American GFR(CKD) 64.2 (60.0-200.0); Potassium 4.6 mmol/L (3.5-5.5); Sodium 141 mmol/L (135-145); Total Protein 6.4 g/dL (6.2-8.2)
== END | disposition home or self-care (01) ==
LOC: LABWHC1 09:42
PROVIDERS: ATTEND Internal Medicine
DX: I10 Essential (primary) hypertension (principal); E78.5 Hyperlipidemia, unspecified; E55.9 Vitamin D deficiency, unspecified
CPT/HCPCS: 36415; 80053; 80061; 82306; 84443; 85027

== ENCOUNTER → 2023-03-05 | Outpatient (CLI) | payer MEDICARE, BC ==
--- NOTE | 2023-03-05 19:20 | BD ---
EXAMINATION TYPE: Axial Bone Density DATE OF EXAM: 03/05/2023 CLINICAL HISTORY: 82 years old Female. ICD-10 CODE: N95.1 MENOPAUSAL AND FEMALE CLIMACTERIC STATES Height: 59 Weight: 164.8 FRAX RISK QUESTIONS: Alcohol (3 or more units per day): no Family History (Parent hip fracture): yes Glucocorticoids (More than 3mos): no (Ex: prednisone, prednisolone, methylprednisolone, dexamethasone, and hydrocortisone). History of Fracture in Adulthood: yes Secondary Osteoporosis: 1. Type 1 Diabetes: no 2. Hyperthyroidism: no 3. Menopause before 45: no 4. Malnutrition: no 5. Chronic liver disease: no Rheumatoid Arthritis: no Current Tobacco Use: no RISK FACTORS HISTORY OF: Hip Fracture (Right/Left): left When: 2014 Surgery to Spine/Hip(right/left)/Wrist (right/left): left hip surgery When: 2014 Family History of Osteoporosis: yes Active: no Diet low in dairy products/other sources of calcium: no Postmenopausal woman: yes Lost more than 2 inches in height since high school: yes MEDICATIONS: Additional History: EXAM MEASUREMENTS: Bone mineral densitometry was performed using the [employer] System. Bone mineral density as measured about the Lumbar spine is: ----- L1-L4(G/cm2): 1.202 T Score Values are as follows: ----- L1: -1.1 ----- L2: 0.6 ----- L3: 0.7 ----- L4: 0.3 ----- L1-L4: 0.2 Z Score Values are as follows: ----- L1: 0.5 ----- L2: 2.1 ----- L3: 2.3 ----- L4: 1.8 ----- L1-L4: 1.7 Bone mineral density has: decreased -1.6 % since study of: 05.05.2019 Bone mineral density about the R hip (g/cm2): 0.926 T Score values are as follows: -----R Neck: -1.8 -----R Total: -0.6 Z Score values are as follows: -----R Neck: 0.3 -----R Total: 1.3 Bone mineral density has: decreased 1.4 % since study of: 05.05.2019 FRAX%s: The graph provided illustrates a 33.5% chance for a major osteoporotic fx and a 20.0% chance for the hips probability for fx in 10 years time. IMPRESSION: Osteopenia (T Score between -2.5 and -1). There is slightly increased risk of fracture and the patient may be considered for treatment. Re-Screen 2-5 years. NOTE: T-SCORE=SD OF THE YOUNG ADULT MEAN.
== END | disposition home or self-care (01) ==
LOC: RADBDWWP 09:13
PROVIDERS: ATTEND Internal Medicine
DX: M85.89 Other specified disorders of bone density and structure, multiple sites (principal); N95.1 Menopausal and female climacteric states
CPT/HCPCS: 77080

== ENCOUNTER → 2023-08-06 | Outpatient (CLI) | payer MEDICARE ==
[2023-08-06 15:13] LABS: HGB 12.9 g/dL (12.0-15.0); MCH 29.5 pg (27.0-32.0); MCHC 31.5 g/dL (32.0-37.0); MCV 93.8 FL (80.0-97.0); Mean Platelet Volume 9.2 FL (9.5-12.2); NRBC Per 100 WBC 0 X 10*3/uL (0.00-0.01); Platelet Count 311 X 10*3/uL (140-440); RBC 4.37 X 10*6/uL (4.10-5.20); RDW 11.9 % (11.5-14.5)
[2023-08-06 15:38] LABS: ALT 18 U/L (8-44); AST 21 U/L (13-35); Albumin 4.2 g/dL (3.8-4.9); Albumin/Globulin Ratio 1.62 Ratio (1.60-3.17); Alkaline Phosphatase 78 U/L (41-126); BUN/Creat Ratio 14.14 Ratio (12.00-20.00); Blood Urea Nitrogen 9.9 mg/dL (9.0-27.0); Calcium 9.5 mg/dL (8.7-10.3); Carbon Dioxide 27.8 mmol/L (21.6-31.8); Chloride 98 mmol/L (96-109); Chol/HDL Ratio 2.13 Ratio; Globulin 2.6 g/dL (1.6-3.3); Glucose 83 mg/dL (70-110); Sodium 138 mmol/L (135-145); Total Bilirubin 0.5 mg/dL (0.3-1.2); Total Protein 6.8 g/dL (6.2-8.2)
== END | disposition home or self-care (01) ==
LOC: LABWHC1 09:46
PROVIDERS: ATTEND Internal Medicine
DX: I10 Essential (primary) hypertension (principal); E78.5 Hyperlipidemia, unspecified
CPT/HCPCS: 36415; 80053; 80061; 84443; 85027

== ENCOUNTER → 2023-11-19 | Outpatient (CLI) | payer MEDICARE ==
[2023-11-19 15:59] LABS: HCT 42.1 % (37.2-46.3); HGB 13.2 g/dL (12.0-15.0); MCH 29.1 pg (27.0-32.0); MCHC 31.4 g/dL (32.0-37.0); MCV 92.7 FL (80.0-97.0); Mean Platelet Volume 9.1 FL (9.5-12.2); NRBC Per 100 WBC 0 X 10*3/uL (0.00-0.01); Platelet Count 314 X 10*3/uL (140-440); RBC 4.54 X 10*6/uL (4.10-5.20); RDW 12.6 % (11.5-14.5); WBC 4.34 X 10*3/uL (4.50-10.00)
[2023-11-19 16:31] LABS: ALT 19 U/L (8-44); AST 21 U/L (13-35); Albumin 4.4 g/dL (3.8-4.9); Albumin/Globulin Ratio 1.76 Ratio (1.60-3.17); Alkaline Phosphatase 73 U/L (41-126); BUN/Creat Ratio 14.88 Ratio (12.00-20.00); Blood Urea Nitrogen 11.9 mg/dL (9.0-27.0); Calcium 9.6 mg/dL (8.7-10.3); Carbon Dioxide 31.6 mmol/L (21.6-31.8); Chloride 97 mmol/L (96-109); Chol/HDL Ratio 2.52 Ratio; Globulin 2.5 g/dL (1.6-3.3); Glucose 99 mg/dL (70-110); LDL Cholesterol,Calculated 100.6 mg/dL (0.0-131.0); Potassium 4.2 mmol/L (3.5-5.5); Sodium 138 mmol/L (135-145); Total Bilirubin 0.5 mg/dL (0.3-1.2); Total Protein 6.9 g/dL (6.2-8.2)
== END | disposition home or self-care (01) ==
LOC: LABWHC1 09:47
PROVIDERS: ATTEND Internal Medicine
DX: I10 Essential (primary) hypertension (principal); E78.5 Hyperlipidemia, unspecified
CPT/HCPCS: 36415; 80053; 80061; 84443; 85027

== ENCOUNTER → 2024-02-04 | Outpatient (CLI) | payer MEDICARE ==
--- NOTE | 2024-02-04 10:38 | XR ---
EXAMINATION TYPE: XR chest 2V DATE OF EXAM: 02/04/2024 9:22 AM CLINICAL INDICATION:Female, 83 years old with history of R06.02 SHORTNESS OF BREATH; PHH COMPARISON: None TECHNIQUE: XR chest 2V Frontal and lateral views of the chest. FINDINGS: Lungs/Pleura: There is no evidence of pleural effusion, focal consolidation, or pneumothorax. Pulmonary vascularity: Unremarkable. Heart/mediastinum: Cardiomediastinal silhouette is unremarkable. Musculoskeletal: No acute osseous pathology. IMPRESSION: No acute cardiopulmonary disease/process.
== END | disposition home or self-care (01) ==
LOC: RADXRMAIN 09:09
PROVIDERS: ATTEND Internal Medicine
DX: R06.02 Shortness of breath (principal)
CPT/HCPCS: 71046

== ENCOUNTER → 2024-04-21 | Outpatient (CLI) | payer MEDICARE ==
[2024-04-21 16:53] LABS: HCT 36.8 % (37.2-46.3); HGB 11.3 g/dL (12.0-15.0); MCHC 30.7 g/dL (32.0-37.0); MCV 84.6 FL (80.0-97.0); Mean Platelet Volume 9.3 FL (9.5-12.2); NRBC Per 100 WBC 0 X 10*3/uL (0.00-0.01); Platelet Count 354 X 10*3/uL (140-440); RBC 4.35 X 10*6/uL (4.10-5.20); RDW 13.5 % (11.5-14.5); WBC 6.18 X 10*3/uL (4.50-10.00)
[2024-04-21 17:09] LABS: ALT 16 U/L (8-44); AST 19 U/L (13-35); Albumin 4.3 g/dL (3.8-4.9); Albumin/Globulin Ratio 1.95 Ratio (1.60-3.17); Alkaline Phosphatase 65 U/L (41-126); BUN/Creat Ratio 15.88 Ratio (12.00-20.00); Blood Urea Nitrogen 12.7 mg/dL (9.0-27.0); Calcium 9.5 mg/dL (8.7-10.3); Carbon Dioxide 27.5 mmol/L (21.6-31.8); Chloride 100 mmol/L (96-109); Globulin 2.2 g/dL (1.6-3.3); Glucose 100 mg/dL (70-110); LDL Cholesterol,Calculated 70.2 mg/dL (0.0-131.0); Potassium 4.3 mmol/L (3.5-5.5); Sodium 138 mmol/L (135-145); Total Bilirubin 0.5 mg/dL (0.3-1.2); Total Protein 6.5 g/dL (6.2-8.2)
== END ==
LOC: LABWHC1 08:52
PROVIDERS: ATTEND Internal Medicine
DX: Z00.00 Encounter for general adult medical examination without abnormal findings
CPT/HCPCS: 36415; 80053; 80061; 84443; 85027

== ENCOUNTER → 2024-07-07 | Outpatient (CLI) | payer MEDICARE ==
[2024-07-07 15:26] LABS: Chol/HDL Ratio 1.87 Ratio; LDL Cholesterol,Calculated 57.1 mg/dL (0.0-131.0); VLDL Calculation 18.64 mg/dL (5.00-40.00)
[2024-07-07 15:27] LABS: ALT 14 U/L (8-44); AST 18 U/L (13-35); Albumin 4.2 g/dL (3.8-4.9); Albumin/Globulin Ratio 1.83 Ratio (1.60-3.17); Alkaline Phosphatase 58 U/L (41-126); Blood Urea Nitrogen 12.6 mg/dL (9.0-27.0); Calcium 9.4 mg/dL (8.7-10.3); Carbon Dioxide 28.4 mmol/L (21.6-31.8); Chloride 100 mmol/L (96-109); Globulin 2.3 g/dL (1.6-3.3); Glucose 95 mg/dL (70-110); Potassium 4.5 mmol/L (3.5-5.5); Sodium 138 mmol/L (135-145); Total Bilirubin 0.3 mg/dL (0.3-1.2); Total Protein 6.5 g/dL (6.2-8.2)
[2024-07-07 16:23] LABS: HCT 30.8 % (37.2-46.3); MCH 23.4 pg (27.0-32.0); MCHC 29.2 g/dL (32.0-37.0); Mean Platelet Volume 9.1 FL (9.5-12.2); NRBC Per 100 WBC 0 X 10*3/uL (0.00-0.01); Platelet Count 419 X 10*3/uL (140-440); RBC 3.85 X 10*6/uL (4.10-5.20); RDW 14.6 % (11.5-14.5); WBC 5.76 X 10*3/uL (4.50-10.00)
== END | disposition home or self-care (01) ==
LOC: LABWHC1 09:54
PROVIDERS: ATTEND Internal Medicine
DX: I10 Essential (primary) hypertension (principal); E78.5 Hyperlipidemia, unspecified; M19.90 Unspecified osteoarthritis, unspecified site
CPT/HCPCS: 36415; 80053; 80061; 84443; 85027

== ENCOUNTER → 2024-10-20 | Outpatient (CLI) | payer MEDICARE ==
[2024-10-20 16:49] LABS: HCT 27.4 % (37.2-46.3); HGB 7.7 g/dL (12.0-15.0); MCHC 28.1 g/dL (32.0-37.0); MCV 74.7 FL (80.0-97.0); Mean Platelet Volume 9.1 FL (9.5-12.2); NRBC Per 100 WBC 0 X 10*3/uL (0.00-0.01); Platelet Count 430 X 10*3/uL (140-440); RBC 3.67 X 10*6/uL (4.10-5.20); RDW 17.7 % (11.5-14.5)
[2024-10-20 17:27] LABS: Basophils # (A) 0.06 X 10*3/uL (0.00-0.10); Basophils % (A) 1.1 %; Eosinophils # (A) 0.21 X 10*3/uL (0.04-0.35); Eosinophils % (A) 3.8 %; Hypochromasia (M) 2+ (None Seen); Lymphocytes % (A) 16.4 %; Monocytes # (A) 0.72 X 10*3/uL (0.20-1.00); Monocytes % (A) 13.1 %; Neutrophils # (A) 3.59 X 10*3/uL (1.80-7.70); Neutrophils % (A) 65.2 %
[2024-10-20 17:29] LABS: ALT 14 U/L (8-44); AST 20 U/L (13-35); Albumin 4.2 g/dL (3.8-4.9); Albumin/Globulin Ratio 1.68 Ratio (1.60-3.17); Alkaline Phosphatase 57 U/L (41-126); BUN/Creat Ratio 16.14 Ratio (12.00-20.00); Blood Urea Nitrogen 11.3 mg/dL (9.0-27.0); Calcium 9.6 mg/dL (8.7-10.3); Carbon Dioxide 27.4 mmol/L (21.6-31.8); Chloride 100 mmol/L (96-109); Chol/HDL Ratio 1.74 Ratio; Globulin 2.5 g/dL (1.6-3.3); Glucose 104 mg/dL (70-110); LDL Cholesterol,Calculated 42.6 mg/dL (0.0-131.0); Potassium 4.3 mmol/L (3.5-5.5); Sodium 139 mmol/L (135-145); Total Bilirubin 0.3 mg/dL (0.3-1.2); Total Protein 6.7 g/dL (6.2-8.2)
== END | disposition home or self-care (01) ==
LOC: LABWHC1 09:45
PROVIDERS: ATTEND Internal Medicine
DX: I10 Essential (primary) hypertension (principal); E78.2 Mixed hyperlipidemia; E55.9 Vitamin D deficiency, unspecified; Z79.899 Other long term (current) drug therapy
CPT/HCPCS: 36415; 80053; 80061; 82306; 84443; 85025

== ENCOUNTER → 2025-01-05 | Outpatient (CLI) | payer MEDICARE ==
[2025-01-05 15:51] LABS: ALT 21 U/L (8-44); AST 26 U/L (13-35); Albumin 4.3 g/dL (3.8-4.9); Albumin/Globulin Ratio 1.72 Ratio (1.60-3.17); Alkaline Phosphatase 64 U/L (41-126); Blood Urea Nitrogen 13.6 mg/dL (9.0-27.0); Carbon Dioxide 26.7 mmol/L (21.6-31.8); Chloride 100 mmol/L (96-109); Chol/HDL Ratio 2.19 Ratio; Globulin 2.5 g/dL (1.6-3.3); Glucose 93 mg/dL (70-110); LDL Cholesterol,Calculated 75.7 mg/dL (0.0-131.0); Potassium 4.2 mmol/L (3.5-5.5); Sodium 140 mmol/L (135-145); Total Bilirubin 0.4 mg/dL (0.3-1.2); Total Protein 6.8 g/dL (6.2-8.2); VLDL Calculation 16.16 mg/dL (5.00-40.00)
[2025-01-05 16:12] LABS: HCT 46.5 % (37.2-46.3); HGB 14.4 g/dL (12.0-15.0); MCH 26.6 pg (27.0-32.0); Mean Platelet Volume 9.8 FL (9.5-12.2); NRBC Per 100 WBC 0 X 10*3/uL (0.00-0.01); Platelet Count 288 X 10*3/uL (140-440); RBC 5.41 X 10*6/uL (4.10-5.20); RDW 18.7 % (11.5-14.5); WBC 4.84 X 10*3/uL (4.50-10.00)
== END | disposition home or self-care (01) ==
LOC: LABWHC1 09:26
PROVIDERS: ATTEND Internal Medicine
DX: I10 Essential (primary) hypertension (principal); E78.5 Hyperlipidemia, unspecified; D64.9 Anemia, unspecified
CPT/HCPCS: 36415; 80053; 80061; 84443; 85027